=== PATIENT | male | born 1980 | race African-American/Black ===

== ENCOUNTER 2024-03-09 14:47 | Outpatient (POV) | payer MEDICARE, SELFPAY ==
[2024-03-09 15:26] VITALS: BP 121/82; PULSE 96; RESP 18; O2SAT 98; BMI 48.4
--- NOTE | 2024-03-09 16:09 | EXP.PAIN.OV ---
HPI Data of Consult Patient: known to practice within the last 3 years Consult date: 03/09/24 Requesting Physician: Daisy Wagner APRN Primary Care Provider: Julio Linn MD Consult Narrative Reason for consult: Low back pain, leg pain History of present illness: Mr. Ruiz is a 43 year old male who presents today as a referral from [facility]. Today he rates his pain a 4 or 5 out of 10. Patient states the pain is all in his low back and will radiate down into his extremities with the left side being more prominent. Patient states this has been going on for longer than a year unrelated to any specific trauma or injury. Patient was being seen in [place] from Dr. Melton until that office close and had gotten injections including lumbar medial branch blocks and RFA. Patient states that these injections did help and did provide improvement. Patient has also tried oral medications along with heat and ice and topicals. Patient did also purchase a TENS unit to help additionally with his low back pain. Patient has stated that the pain is worse with prolonged standing or walking. He does describe it as a throbbing, sharp sensation that does interfere with his ability perform activities of daily living such as cooking and cleaning. Patient does state that he is possibly interested in the minimally invasive lumbar procedure. He states that he did read up on this procedure. Patient is currently managed with gabapentin 600 mg 3 times a day from his PCP along with diazepam and has been tried on [place] 7.5 in the past. Patient is still prescribed compounded cream that he was originally started at our office there in [place]. He denies any side effects. His Rogelio has been reviewed and is appropriate. CC: Daisy Wagner APRN [facility] Disclaimer: The information contained in this section may have been updated after the patient was seen, as this information can be updated by other users. Social History Smoking Status: Unknown if ever smoked alcohol intake: never current occupational status: other Travel in the last 8 weeks: None Review of Systems Review of Systems Review of systems:: pertinent systems reviewed and negative unless documented below Review of systems (narrative): Review of Systems: General: No recent weight changes, no fever, no sleep disturbances Respiratory: No cough, no shortness of air, no recurring pulmonary infections Cardiovascular/peripheral vascular: No chest pain, no palpitations, no edema, no shortness of breath Gastrointestinal: No new onset incontinence, normal bowel movements reported Genitourinary: No new onset incontinence Musculoskeletal: Low back pain, bilateral leg pain left worse than the right Psychiatric: [Normal mood/affect] Neurological: [Denies weakness in extremities], [denies balance issues] Meds Home Medications and Allergies Home Medications ?Medication ?Instructions ?Recorded ?Confirmed ?Type gabapentin 600 mg tablet 600 mg PO TID 03/09/24 03/09/24 History hydrocodone 5 mg-acetaminophen 325 1 tab PO NEEDED PRN Pain 03/09/24 03/09/24 History mg tablet tizanidine 4 mg tablet 4 mg PO TID PRN Pain 03/09/24 03/09/24 History New Prescriptions to Start Prescriptions: Allergies Allergy/AdvReac Type Severity Reaction Status Date / Time No Known Allergies Allergy Verified 03/09/24 15:33 Objective Vital signs: Pulse Resp BP Pulse Ox O2 Del Method 96 H 18 121/82 98 Room Air 03/09/24 15:26 03/09/24 15:26 03/09/24 15:26 03/09/24 15:26 03/09/24 15:26 Narrative: Physical Exam: General: Alert and oriented x3, no acute distress, pleasant and cooperative Lungs: Respirations even and unlabored, symmetrical chest expansion Eyes: PERRL Musculoskeletal: Flexion and extension of lumbar [spine] somewhat guarded secondary to pain, [antalgic gait noted] positive leg raise Neurological: Speech clear, no gross sensory deficit Assessment and Plan *Assessment and plan (1) Degenerative disc disease, lumbar: Status: Acute Category: Medical Code(s): M51.369 - Other intervertebral disc degeneration, lumbar region without mention of lumbar back pain or lower extremity pain (2) Lumbar radiculopathy: Status: Acute Category: Medical Code(s): M54.16 - Radiculopathy, lumbar region (3) Lumbar facet arthropathy: Status: Acute Category: Medical Code(s): M47.816 - Spondylosis without myelopathy or radiculopathy, lumbar region (4) Chronic pain syndrome: Status: Acute Category: Medical Code(s): G89.4 - Chronic pain syndrome Plan Patient is experiencing worsening pain in his low back that does radiate down into his left lower extremity primarily in comparison to the right. He does have numbness and tingling. Patient does also have significant findings at the L5-S1 level where he is noted to have a grade 1 spondylolisthesis of L5 on S1, loss of disc space height, anterior spondylosis and endplate degeneration. Patient does have marked facet arthropathy, diffuse disc displacement that does contribute to moderate to severe bilateral lateral recess and foraminal stenosis leading to encroachment of the exiting L5 and descending S1 nerve roots. I did discuss with the patient that I do believe he would benefit from an epidural injection at this level with epidurogram to see if he is a beneficial candidate of the minimally invasive lumbar decompression. Patient agrees with this plan of care. Patient is not on any blood thinners. Patient has tried and failed conservative therapy including continued at home stretching exercise for longer than 12 weeks as well as multiple oral medication, heat and ice and topicals. Patient will be scheduled for an LESI L5-S1 with epidurogram. This will be done under fluoroscopic guidance. Patient has been instructed to contact the clinic with any concerns before the next appointment. Dr. Melton has reviewed this note and agrees with this plan of care. This note was dictated using voice recognition software and make contain errors or omissions. All injections are used with Lidocaine or Bupivacaine and Depo Medrol.
== END 2024-03-09 23:59 | disposition home or self-care (01) ==
LOC: SC.PAIN 14:52
PROVIDERS: PCP Family Medicine; Visit Provider Nurse Practitioner Family
DX: G89.4 Chronic pain syndrome (principal); M51.16 Intervertebral disc disorders with radiculopathy, lumbar region; M47.26 Other spondylosis with radiculopathy, lumbar region; Z73.89 Other problems related to life management difficulty
CPT/HCPCS: 99202; G0463

== ENCOUNTER 2024-04-07 13:44 | Day surgery (SDC) | payer MEDICARE, OTHER, SELFPAY ==
[2024-04-07 14:09] VITALS: BP 142/90; PULSE 95; RESP 16; TEMP 36.4; O2SAT 100; BMI 48.4
--- NOTE | 2024-04-07 14:43 | EXP.PAIN.PRO ---
Procedure Date: 04/07/24 Time: 14:45 Anesthesiologist:: Yovanny Lim CRNA Complications:: None Pre-procedure Diagnosis:: Degenerative disc lumbar spine multilevels. Lumbar radiculopathy. Lumbar spinal stenosis. Post-procedure Diagnosis:: Same. Indications for Procedure:: Patient is a pleasant 43-year-old male who comes our clinic today for a lumbar epidural steroid injection at the L5-S1 level. Patient describes low lumbar back pain as constant, dull, aching. Patient also reports bilateral leg radiculopathy symptoms left greater than right. He rates his pain 8/10. Procedure Details:: Procedure: Lumbar epidural steroid injection under fluoroscopy Informed consent was obtained and the risks and benefits of the procedure were explained to the patient. The patient was taken to the procedure room and noninvasive monitors placed, including noninvasive blood pressure cuff and pulse oximeter. The back was viewed using C-arm Fluoroscopy and prepped using Chloraprep as a cleansing solution and the L5-S1 interspace was palpated. Skin and subcutaneous tissues were anesthetized using lidocaine 1.5% and a 25-gauge needle. After this, an 18-gauge Touhy epidural needle was placed into the L5-S1 interspace and advanced using fluoroscopic guidance and loss of resistance to air until the epidural space was encountered. After confirmation of needle placement in the epidural space, with dye, a solution containing normal saline, 3 mL and Depo-Medrol 80 mg were incrementally injected into the lumbar epidural space. The patient tolerated the procedure well with no complications. The patient was observed in the Pain Clinic and then discharged home neurologically intact. Plan and Disposition:: Patient was discharged without incident.
[2024-04-07] MEDS: IOPAMIDOL-200 (41%);10ML VIAL IV (14:47)
[2024-04-07 14:48] VITALS: BP 134/84; PULSE 94; RESP 16; O2SAT 100
== END 2024-04-07 14:48 | disposition home or self-care (01) ==
PROVIDERS: PCP Family Medicine; Visit Provider Nurse Anesthetist, Certified Registered
DX: M51.16 Intervertebral disc disorders with radiculopathy, lumbar region (principal); M48.061 Spinal stenosis, lumbar region without neurogenic claudication
CPT/HCPCS: 62323; J1010; Q9966

== ENCOUNTER 2024-04-30 14:41 | Outpatient (POV) | payer MEDICARE, OTHER, SELFPAY ==
--- NOTE | 2024-04-30 15:06 | A.OFFVIS_ITS ---
[facility] Disclaimer: The information contained in this section may have been updated after the patient was seen, as this information can be updated by other users. Social History Smoking Status: Unknown if ever smoked alcohol intake: never current occupational status: other Travel in the last 8 weeks: None PM Subjective & Objective Subjective Subjective:: Patient is a pleasant 43-year-old male who presents today for follow-up of lumbar epidural steroid injection L5-S1 under fluoroscopy on 04/07/2024 with epidurogram. Today he rates his pain a 7 out of 10. Patient denies any new trauma or injury. He does state that on the day of the procedure he had 70% improvements and worked really great with improved function however it was very short-lived and is only rating about 20% currently. Patient states it is still that chronic aching, throbbing sensation with occasional sharp shooting pains and increased leg symptoms when he is up walking and moving around. He does state today he is having more pain around his low back and hips. He states that it is worse with prolonged sitting and does have to change positions frequently due to the increased pain. He does state it is interfering with his ability to perform activities of daily living such as cooking and cleaning. Patient has tried and failed conservative therapy and is currently managed with gabapentin and diazepam from his PCP. He has tried [place] in the past. Patient has been prescribed compounded cream from our office. His Rogelio has been reviewed and is appropriate. Review of Systems: General: No recent weight changes, no fever, no sleep disturbances Respiratory: No cough, no shortness of air, no recurring pulmonary infections Cardiovascular/peripheral vascular: No chest pain, no palpitations, no edema, no shortness of breath Gastrointestinal: No new onset incontinence, normal bowel movements reported Genitourinary: No new onset incontinence Musculoskeletal: Low back pain, bilateral hip pain Psychiatric: [Normal mood/affect] Neurological: [Denies weakness in extremities], [denies balance issues] Pain at rest (0-10 scale): 7 Objective Objective:: Physical Exam: General: Alert and oriented x3, no acute distress, pleasant and cooperative Lungs: Respirations even and unlabored, symmetrical chest expansion Eyes: PERRL Musculoskeletal: Flexion and extension of lumbar [spine] somewhat guarded secondary to pain, [antalgic gait noted] point tenderness along bilateral SIs with positive bilateral Bhakti's, Estela's, Gaenslen's, compression and distraction exam Neurological: Speech clear, no gross sensory deficit Has patient had previous pain injection?: Yes Percent improvement in pain since last injection: 70% initially Conservative treatment options previously tried: Home exercise plan Length of treatment: Longer than 12 weeks Meds Home Medications and Allergies Home Medications ?Medication ?Instructions ?Recorded ?Confirmed ?Type gabapentin 600 mg tablet 600 mg PO TID 03/09/24 04/07/24 History hydrocodone 5 mg-acetaminophen 325 1 tab PO NEEDED PRN Pain 03/09/24 04/07/24 History mg tablet tizanidine 4 mg tablet 4 mg PO TID PRN Pain 03/09/24 04/07/24 History New Prescriptions to Start Prescriptions: Allergies Allergy/AdvReac Type Severity Reaction Status Date / Time No Known Allergies Allergy Verified 03/09/24 15:33 Assessment and Plan *Assessment and plan (1) Degenerative disc disease, lumbar: Status: Acute Category: Medical Code(s): M51.369 - Other intervertebral disc degeneration, lumbar region without mention of lumbar back pain or lower extremity pain (2) Lumbar radiculopathy: Status: Acute Category: Medical Code(s): M54.16 - Radiculopathy, lumbar region (3) Lumbar facet arthropathy: Status: Acute Category: Medical Code(s): M47.816 - Spondylosis without myelopathy or radiculopathy, lumbar region (4) Lumbar spinal stenosis: Status: Acute Category: Medical Code(s): M48.061 - Spinal stenosis, lumbar region without neurogenic claudication (5) Lumbar stenosis with neurogenic claudication: Status: Acute Category: Medical Code(s): M48.062 - Spinal stenosis, lumbar region with neurogenic claudication (6) Bilateral sacroiliitis: Status: Acute Category: Medical Code(s): M46.1 - Sacroiliitis, not elsewhere classified Plan Patient has not had any advanced imaging of his low back. I did discuss with the patient that I do believe he is still a potential candidate for the mini dru invasive lumbar decompression however I would like some imaging. I will order x-ray and MRI without contrast of his lumbar spine. Patient during today's visit did have increased pain along the low back and bilateral hips. They did have limited range of motion of the lumbar spine along with point tenderness along bilateral SI joints and a positive bilateral Bhakti's, Estela's, Gaenslen's, compression and distraction exam. I did discuss with the patient that I do believe they would benefit from bilateral SI injections. Risk and benefits were discussed with the patient and they would like to proceed forward with this option. Patient has tried and failed conservative therapy including continued at home stretching exercise for longer than 12 weeks. Patient will be scheduled for bilateral SI injections under fluoroscopy. Patient has been instructed to contact the clinic with any concerns before the next appointment. Dr. Melton has reviewed this note and agrees with this plan of care. This note was dictated using voice recognition software and make contain errors or omissions. All injections are used with Lidocaine or Bupivacaine and Depo Medrol.
[2024-04-30 15:31] VITALS: BP 114/79; PULSE 92; RESP 14; O2SAT 96; BMI 50.0
== END 2024-04-30 23:59 | disposition home or self-care (01) ==
LOC: SC.PAIN 14:42
PROVIDERS: PCP Family Medicine; Visit Provider Nurse Practitioner Family
DX: M48.061 Spinal stenosis, lumbar region without neurogenic claudication (principal); M48.062 Spinal stenosis, lumbar region with neurogenic claudication; M46.1 Sacroiliitis, not elsewhere classified; M51.16 Intervertebral disc disorders with radiculopathy, lumbar region; M47.26 Other spondylosis with radiculopathy, lumbar region; Z73.89 Other problems related to life management difficulty
CPT/HCPCS: 99212; G0463

== ENCOUNTER 2024-05-19 11:10 | Day surgery (SDC) | payer MEDICARE, OTHER, SELFPAY ==
[2024-05-19 11:15] VITALS: BP 121/84; PULSE 106; RESP 16; TEMP 36.5; O2SAT 95; BMI 48.4
[2024-05-19 11:40] VITALS: BP 118/73; PULSE 96; RESP 16; TEMP 36.5; O2SAT 100
--- NOTE | 2024-05-19 11:42 | P.PCN_ITS ---
Procedure Date: 05/19/24 Time: 11:30 Anesthesiologist:: Yovanny Lim CRNA Complications:: None Pre-procedure Diagnosis:: Bilateral sacroiliitis Post-procedure Diagnosis:: Same Indications for Procedure:: Patient is a pleasant 44-year-old male who comes our clinic today for bilateral sacroiliac joint injection of cortisone and local anesthetic. Patient describes low lumbar back pain off the midline bilaterally. Bilateral posterior hip pain. Difficulty transitioning from sitting to standing. Difficult with ambulation. He rates his pain 7/10. Procedure Details:: Procedure: Bilateral sacroiliac joint injections under fluoroscopy Informed consent was obtained and the risks and benefits of the procedure were explained to the patient.~ The patient was taken to the procedure room and noninvasive monitors were placed including a noninvasive blood pressure cuff and pulse oximeter.~ The patient was placed prone on the procedure table. Both hips were cleansed using Betadine as a cleansing solution. C-arm fluoroscopy was used to view the right sacroiliac joint.~ The skin and subcutaneous tissues were anesthetized using lidocaine 1.5% and a 25-gauge needle.~ After this, a 22-gauge spinal needle was inserted under fluoroscopic guidance into the inferior aspect of the right sacroiliac joint.~ Omnipaque dye was injected and good spread was seen throughout the joint.~ After this, approximately 5 mL of bupivacaine, 0.25% and Depo-Medrol, 40 mg was incrementally injected into the right sacroiliac joint. We then moved to the left sacroiliac joint.~ The skin and subcutaneous tissues were anesthetized using lidocaine 1.5% and a 25-gauge needle.~ After this, a 22- gauge spinal needle was inserted under fluoroscopic guidance into the inferior aspect of the left sacroiliac joint.~ Omnipaque dye was injected and good spread was seen throughout the joint. After this, approximately 5 mL of bupivacaine, 0.25% and Depo-Medrol, 40 mg was incrementally injected into the left sacroiliac joint.~ The patient tolerated the procedure well with no complications. The patient was observed in the Pain Clinic and then was discharged home neurologically intact. Plan and Disposition:: Patient was discharged without incident.
[2024-05-19] MEDS: LIDOCAINE 1% 5ML PF VIAL 5 ML (11:48)
[2024-05-19] MEDS: BUPIVACAINE 0.25% 10ML INJ 25 MG IJ (11:48)
[2024-05-19 11:49] VITALS: BP 124/75; PULSE 83; RESP 18; O2SAT 99
[2024-05-19 11:51] VITALS: BP 124/75; PULSE 83; RESP 18; O2SAT 99
== END 2024-05-19 11:40 | disposition home or self-care (01) ==
LOC: SC.PAINP 11:11
PROVIDERS: PCP Family Medicine; Visit Provider Nurse Anesthetist, Certified Registered
DX: M46.1 Sacroiliitis, not elsewhere classified (principal)
CPT/HCPCS: 27096; G0260; J1010

== ENCOUNTER 2024-06-15 14:28 | Outpatient (POV) | payer OTHER, SELFPAY ==
--- NOTE | 2024-06-15 14:43 | EXP.PAIN.SOA ---
[facility] Disclaimer: The information contained in this section may have been updated after the patient was seen, as this information can be updated by other users. Medical History (Updated 05/19/24 @ 11:30 by Radha De La Rosa RN) Lumbar back pain Lumbar and sacral arthritis Surgical History (Updated 05/19/24 @ 11:30 by Radha De La Rosa RN) No significant past surgical history Family History (Updated 05/19/24 @ 11:30 by Radha De La Rosa RN) Other No significant family history Social History Smoking Status: Unknown if ever smoked alcohol intake: never current occupational status: other Travel in the last 8 weeks: None PM Subjective & Objective Subjective Subjective:: Patient is a pleasant 44-year-old male who presents today for follow-up of bilateral SI injection on 05/19/2024. Today he rates his pain a 6 out of 10. Patient states that he would only rate 60% the day of the injections and about 40% ongoing pain relief from these injections. He denies any new trauma or injury. Patient does state that from her last visit he did get his x-ray and MRI completed there at [facility]. Patient has now tried a couple of injections with our office as well as injections there at [facility] and they all of been very temporary. Patient states his pain is just chronic throughout his low back as well as his legs when he is up walking. Patient is currently managed with gabapentin and diazepam from his PCP. He is prescribed compounded cream from our office. His Rogelio has been reviewed and is appropriate. Review of Systems: General: No recent weight changes, no fever, no sleep disturbances Respiratory: No cough, no shortness of air, no recurring pulmonary infections Cardiovascular/peripheral vascular: No chest pain, no palpitations, no edema, no shortness of breath Gastrointestinal: No new onset incontinence, normal bowel movements reported Genitourinary: No new onset incontinence Musculoskeletal: Low back pain, bilateral leg pain Psychiatric: [Normal mood/affect] Neurological: [Denies weakness in extremities], [denies balance issues] Pain at rest (0-10 scale): 6 Objective Objective:: Physical Exam: General: Alert and oriented x3, no acute distress, pleasant and cooperative Lungs: Respirations even and unlabored, symmetrical chest expansion Eyes: PERRL Musculoskeletal: Flexion and extension of lumbar [spine] somewhat guarded secondary to pain, [antalgic gait noted] Neurological: Speech clear, no gross sensory deficit Has patient had previous pain injection?: Yes Percent improvement in pain since last injection: Ongoing 40% Conservative treatment options previously tried: Home exercise plan Length of treatment: Longer than 12 weeks Meds Home Medications and Allergies Home Medications ?Medication ?Instructions ?Recorded ?Confirmed ?Type gabapentin 600 mg tablet 600 mg PO TID 03/09/24 05/19/24 History hydrocodone 5 mg-acetaminophen 325 1 tab PO NEEDED PRN Pain 03/09/24 05/19/24 History mg tablet tizanidine 4 mg tablet 4 mg PO TID PRN Pain 03/09/24 05/19/24 History New Prescriptions to Start Prescriptions: Allergies Allergy/AdvReac Type Severity Reaction Status Date / Time No Known Allergies Allergy Verified 03/09/24 15:33 Assessment and Plan *Assessment and plan (1) Degenerative disc disease, lumbar: Status: Acute Category: Medical Code(s): M51.369 - Other intervertebral disc degeneration, lumbar region without mention of lumbar back pain or lower extremity pain (2) Lumbar radiculopathy: Status: Acute Category: Medical Code(s): M54.16 - Radiculopathy, lumbar region (3) Chronic pain syndrome: Status: Acute Category: Medical Code(s): G89.4 - Chronic pain syndrome Plan I did discuss with the patient due to the patient's chronic pain throughout his low back and legs that he may be a beneficial candidate of a intrathecal pain pump trial or spinal cord stimulator trial. Risk and benefits and educational handouts were given to the patient and he does state that he would like to proceed forward with the pump trial. 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 Patient will be ordered a psychological evaluation and if he is deemed an appropriate candidate we will proceed forward with the trial at a later date. Patient will return to clinic in 1 month. Patient did also make mention today that he is wanting our office to take over his gabapentin. I have counseled him that to make sure that his current provider send us a letter or a fax related to wanting our office to take over this. Patient acknowledges understanding and agrees with plan of care. Patient has been instructed to contact the clinic with any concerns before the next appointment. Dr. Melton has reviewed this note and agrees with this plan of care. This note was dictated using voice recognition software and make contain errors or omissions. All injections are used with Lidocaine, Bupivacaine and Depo Medrol. Occasionally urine drug screen is needed to verify patient's compliance with our office pain contract. This is ordered based off specific treatments related to chronic pain with the potential to abuse certain medications.
[2024-06-15 15:35] VITALS: BP 130/98; PULSE 94; RESP 18; O2SAT 95; BMI 48.4
== END 2024-06-15 23:59 | disposition home or self-care (01) ==
LOC: SC.PAIN 14:31
PROVIDERS: PCP Family Medicine; Visit Provider Nurse Practitioner Family
DX: M51.16 Intervertebral disc disorders with radiculopathy, lumbar region (principal); G89.4 Chronic pain syndrome
CPT/HCPCS: 99212; G0463

== ENCOUNTER 2024-09-16 10:10 | Outpatient (POV) | payer MEDICARE, OTHER, SELFPAY ==
--- OUTSIDE RECORDS SUMMARY | 2024-09-16 10:14 | XMS_ITS | Encounter Summary ---
Author Organization Healthcare Address [address] [place] [address] Care Team Providers Care Vegetable Harvest Worker Name Role Phone Dixie Drew MD Primary Care Provider [phone] Encounter Details Date Type Department Care Team ([facility] Contact Info) Description 02/10/2021 [facility] [address] [place] [address] Dixie Drew MD [address] [place] [address] [place], [place] [id number] Positive WILLIAMS (antinuclear antibody) (Primary Dx) Social History Tobacco Use Types Packs/Day Years Used Date Smoking Tobacco: Never Assessed Sex and Gender Information Value Date Recorded Sex Assigned at Male 12/11/2023 2:26 PM EDT Legal Sex Male 3:26 PM EDT Gender Identity Male 12/11/2023 2:26 PM EDT Sexual Orientation Straight 12/11/2023 2: 26 PM EDT documented as of this encounter Plan of Treatment Upcoming Encounters Date Type Department Care Team (Late Contact Info) Description 12/15/2024 2:20 PM EDT [facility] Visit [facility] [address] [place] [address] Nany Beard, LUCRECIA [address] [place] [address] documented as of this encounter Visit Diagnoses Diagnosis Positive WILLIAMS (antinuclear antibody)- Primary Other and unspecified nonspecific immunological findings documented in this encounter Care Teams Vegetable Harvest Worker Relationship Specialty Start Date End Date Dixie Drew MD [address] [place] [address] PCP - General 02/21/21 documented as of this encounter
--- OUTSIDE RECORDS SUMMARY | 2024-09-16 10:14 | XMS_ITS | Continuity of Care Document ---
Author Organization [facility] Address [address] [place] [address] Assessment No assessment recorded. Plan of Treatment Reminders Order Date Submit Date Provider Last Modified By Organization Details Last Modified Time Details Appointments None record ed. Lab None record ed. Referral None record ed. Procedures None record ed. Surgeries None record ed. Imaging None record ed. Medication Orders None record ed. Patient TargetsNo targets recorded. Patient Instructions Encounter Date Encounter Id Patient Instructions Last Modified By Organization Details Last Modified Time 08/14/2024 [id number] body mass index: care instructions [email or web address] Not available 08/14/2024 11:11:18 learning about healthy weight tgrosser Not available 08/14/2024 11:11:18 deciding about using medicines to quit smoking tgrosser Not available 08/14/2024 11:30:13 Quitting Tobacco : Care Instructions [email or web address] Not available 08/14/2024 11:30:13 body mass index: care instructions tgrosser Not available 08/14/2024 11:30:13 learning about healthy weight tgrosser Not available 08/14/2024 11:30:13 Reason for Referral None Reported. Problems Name Problem SNOMED Code Status Onset Date Resolution Date Notes Provider Name and Address Organization Details Recorded Time Hypertensive disorder 46687226 Active Jessie Juan null, [place] - [facility] 9 17:34:26 Cerebral palsy 463648783 Active Jessie Juan null, [place] - [facility] 17:34:33 Spondylolysis 072364598 Active Jessie Juan null, [facility] 17:34:42 Depressive disorder 20954115 Active Jessie Juan null, [place] - [facility] 9 17:34:49 Anxiety 64410586 Active [place] - [facility] 9 17:35:06 Acid reflux 589541639 Active [place] - [facility] 9 17:35:13 Vitamin K below reference range 127512948 Active 2018 Joe Art null, [place] - [facility] 9 17:37:12 Vitamin D deficiency 41381394 Active 2018 Joe Art null, [place] - [facility] 9 17:37:25 Essential hypertension 20083003 Active 2019 Ali Rajendra null[place] - [facility] 0 13:19:55 Obstructive sleep apnea syndrome 85430772 Active 2020 Ali Rajendra null, [place] - [facility] 1 20:55:19 Swelling of bilateral lower limbs 038933537 Active 2020 Ali Rajendra null[place] - [facility] 1 20:55:23 Body mass index 30+ - obesity 876403732 Active 2020 Ali Rajendra null[place] - [facility] 1 20:55:26 Chronic kidney disease 589124268 Active 2020 Ali Rajendra [place] - [facility] 1 02:59:43 Lymphocytosis 23237056 Active 2020 Ali Rajendra [place] - [facility] 1 12:32:57 Anti-nuclear factor detected 927109165 Active 2020 Ali Rajendra [place] - [facility] 1 12:42:25 Type 2 diabetes mellitus 21940457 Active 2021 Ali Rajendra null[place] - [facility] 2 12:41:05 Low back pain 128302653 Active 2021 Ali Rajendra null, [place] - [facility] 2 14:44:47 Degeneration of lumbar intervertebral disc 20812930 Active 2021 Julio Linn MD [address], [place], [address] [place] - [facility] 2 13:35:56 Tobacco dependence syndrome 37837706 Active 2021 Claudia Bui null[place] - [facility] 2 10:26:48 Lumbar radiculopathy 768570545 Active Kellee Dill null, [place] - [facility] 4 13:12:22 Gout 69399876 Active Kellee Dill null, [place] - [facility] 4 13:12:22 Morbid obesity 415739518 Active 2023 Roosevelt Curt, [employer] [address], [place], [address] [place] - [facility] 4 15:28:13 Problem Notes None recorded. Procedures Surgical History Date Name Laterality Status Provider Name and Address Organization Details Recorded Time 10/31/19 24 Medication Reconcilliation completed Oneyda Philippe [place] - [facility] 10/31/2023 09:31:08 08/02/19 24 Medication Reconcilliation completed Claudia Bui [place] - [facility] 08/02/2023 13:46:51 01/05/20 23 Medication Reconcilliation completed Claudia Bui [place] - [facility] 01/04/2023 09:05:56 02/29/20 Medication Reconcilliation completed [place]ia Bui [place] [facility] 02/28/2022 10:21:54 lengthening of Achilles tendon completed Jessie Martinez [place] [facility] 01/08/2019 17:37:07 Eye Surgery completed Jessie [place] [facility] 01/08/2019 17:37:18 Imaging Results None recorded. Procedure Notes None recorded. Medical Equipment None Reported. Allergies Allergen ID Allergen Name Allergen Category Reaction Reaction Severity Criticality Documentation Date Start Date Code Code System Note Provider Name and Address Organization Details Recorded Time [id number] No known allergy (situatio n) Not available Not available Not available Not available 10/21/2023 96300 6003 SNOMED Kellee Dill null, [place] - [facility] 4 13:09:43 No known drug allergies Medications Name Sig Start Date Stop Date Status Note LastModified by Organization Details LastModified Time amantadine HCl 100 mg tablet 08/14 completed Not Available Not Available Not Available cyclobenzap rine 10 mg tablet TAKE ONE TABLET BY MOUTH ONCE DAILY 10/30 completed Not Available Not Available Not Available methocarbam ol 500 mg tablet TAKE 1 TABLET BY MOUTH EVERY 4 HOURS NEEDED FOR PAIN 01/07 completed Not Available Not Available Not Available metformin 500 mg tablet TAKE 1 TABLET BY MOUTH TWICE DAILY active Not Available Not Available No t Available prednisone 10 mg tablet TAKE 4 TABLETS BY MOUTH ONCE DAILY FOR 2 DAYS THEN 3 TABLETS DAILY FOR 2 DAYS THEN 2 TABLETS DAILY FOR 2 DAYS THEN TAKE 1 TABLET FOR 2 DAYS 10/30 completed Not Available Not Available Not Available gabapentin 600 mg tablet TAKE 1 TABLET BY MOUTH THREE TIMES DAILY FOR PAIN active Not Available Not Available No t Available metoprolol tartrate 100 mg tablet Take 1 tablet every day by oral route. 05/09 completed Not Available Not Available Not Available tizanidine 4 mg tablet TAKE 1 TABLET BY MOUTH THREE TIMES DAILY NEEDED FOR MUSCLE SPASMS active Not Available Not Available No t Available hydrocodone 5 mg-acetamin ophen 325 mg tablet TAKE 1 TABLET BY MOUTH EVERY 4 HOURS IF NEEDED 09/28 completed Not Available Not Available Not Available glipizide 10 mg tablet TAKE 1 TABLET BY MOUTH TWICE DAILY active Not Available Not Available No t Available prednisone 20 mg tablet TAKE 1 TABLET BY MOUTH EVERY DAY FOR 5 DAYS 01/07 completed Not Available Not Available Not Available metoprolol succinate ER 100 mg tablet,exte nded release 24 hr TAKE 1 TABLET BY MOUTH EVERY MORNING active Not Available Not Available No t Available gabapentin 400 mg capsule Take 1 capsule 3 times a day by oral route. 09/07 completed Not Available Not Available Not Available Accu-Chek Softclix Lancets USE DIRECTED TO CHECK BLOOD SUGAR FOUR TIMES DAILY NEEDED active Not Available Not Available No t Available potassium chloride ER 10 mEq tablet,exte nded release TAKE 1 TABLET BY MOUTH EVERY DAY active Not Available Not Available No t Available metronidazo le 500 mg tablet Take 1 tablet twice a day by oral route. 06/04 completed Not Available Not Available Not Available allopurinol 100 mg tablet TAKE 1 TABLET BY MOUTH EVERY DAY FOR GOUT 11/24 completed Not Available Not Available Not Available omeprazole 40 mg capsule,del ayed release Take 1 capsule every day by oral route. 09/07 completed Not Available Not Available Not Available sildenafil 100 mg tablet TAKE 1/2 TABLET BY MOUTH EVERY DAY active Not Available Not Available No t Available ketorolac 30 mg/mL (1 mL) injection solution give 1 ml injection IM once 11/24 completed Not Available Not Available Not Available ketorolac 10 mg tablet TAKE 1 TABLET BY MOUTH EVERY 8 HOURS NEEDED FOR PAIN 01/04 completed Not Available Not Available Not Available Mobic 15 mg tablet Take 1 tablet every day by oral route. 01/27 completed Not Available Not Available Not Available losartan 100 mg-hydrochl orothiazide 25 mg tablet Take 1 tablet every day by oral route for 30 days. 06/04 completed Not Available Not Available Not Available potassium 99 mg tablet 01/07 completed Not Available Not Available Not Available Vitamin D3 10 mcg (400 unit) tablet Take 2 tablets every day by oral route. 2019 active Not Available Not Available Not Avai lable potassium chloride ER 20 mEq tablet,exte nded release(par t/cryst) TAKE 1 TABLET BY MOUTH EVERY DAY 01/23 completed Not Available Not Available Not Available furosemide 80 mg tablet TAKE 1 TABLET BY MOUTH EVERY DAY active Not Available Not Available No t Available baclofen 10 mg tablet TAKE 1 TABLET BY MOUTH THREE TIMES DAILY NEEDED 01/07 completed Not Available Not Available Not Available amlodipine 10 mg tablet TAKE 1 TABLET BY MOUTH EVERY MORNING active Not Available Not Available No t Available hydrocodone 7.5 mg-acetamin ophen 325 mg tablet TAKE 1 TABLET BY MOUTH THREE TIMES DAILY NEEDED FOR PAIN active Not Available Not Available No t Available indomethaci n 50 mg capsule TAKE 1 CAPSULE BY MOUTH THREE TIMES DAILY FOR 3 DAYS FOR GOUT 01/07 completed Not Available Not Available Not Available gabapentin 300 mg capsule TAKE TWO CAPSULE BY MOUTH THREE TIMES DAILY FOR NEUROPTHY 11/24 completed Not Available Not Available Not Available omeprazole 20 mg capsule,del ayed release TAKE 1 CAPSULE BY MOUTH EVERY MORNING active Not Available Not Available No t Available diclofenac sodium 75 mg tablet,david yed release TAKE 1 TABLET BY MOUTH TWICE DAILY 10/26 completed Not Available Not Available Not Available allopurinol 300 mg tablet TAKE 1 TABLET BY MOUTH TWICE DAILY FOR GOUT 08/14 completed Not Available Not Available Not Available hydrochloro thiazide 25 mg tablet TAKE 1 TABLET BY MOUTH EVERY MORNING 08/14 completed Not Available Not Available Not Available furosemide 20 mg tablet TAKE 1 TABLET BY MOUTH EVERY DAY 11/23 /2022 completed Not Available Not Available Not Available ergocalcife rol (vitamin D2) 1,250 mcg (50,000 unit) capsule 06/04 completed Not Available Not Available Not Available diazepam 10 mg tablet TAKE ONE TABLET BY MOUTH ONCE PRE PROCEDURE . TAKE 30 MINUTES PRIOR TO ARRIVIAL TO OFFICE 01/07 completed Not Available Not Available Not Available methylpredn isolone 4 mg tablets in a dose pack FOLLOW PACKAGE DIRECTION S 10/30 completed Not Available Not Available Not Available albuterol sulfate HFA 90 mcg/actuati on aerosol inhaler INHALE 1 TO 2 PUFFS BY MOUTH EVERY 4 HOURS NEEDED active Not Available Not Available No t Available colchicine 0.6 mg tablet TAKE TWO TABLETS BY MOUTH NOW THEN ONE TABLET 1 HOUR LATER active Not Available Not Available No t Available celecoxib 100 mg capsule TAKE 1 CAPSULE BY MOUTH TWICE DAILY 01/07 completed Not Available Not Available Not Available losartan 100 mg tablet TAKE 1 TABLET BY MOUTH DAILY active Not Available Not Available No t Available Cymbalta 60 mg capsule,del ayed release Take 1 capsule every day by oral route. 01/23 completed Not Available Not Available Not Available Cymbalta 30 mg capsule,del ayed release Take 1 capsule every day by oral route. 01/23 completed Not Available Not Available Not Available cholecalcif andrade (vitamin D3) 1,250 mcg (50,000 unit) capsule Take 1 capsule twice a week by oral route as directed for 28 days. 09/09 completed Not Available Not Available Not Available febuxostat 40 mg tablet Take 40 mg by oral route. active Not Available Not Available No t Available potassium chloride ER 20 mEq tablet,exte nded release Take 1 tablet every day by oral route. 01/23 completed Not Available Not Available Not Available Accu-Chek Guide test strips USE 1 STRIP FOUR TIMES DAILY TO TEST BLOOD SUGAR NEEDED 2024 active Not Available Not Available Not Avai lable Ilaris (PF) 150 mg/mL subcutaneou s solution Inject 150 mg every 3 months by sub-q route for 84 days. active Not Available Not Available No t Available Ozempic 1 mg/dose (2 mg/1.5 mL) subcutaneou s pen injector Inject 1 mg every week by subcutane ous route for 30 days. 08/14 completed Not Available Not Available Not Available Ozempic 0.25 mg or 0.5 mg (2 mg/1.5 mL) subcutaneou s pen injector Inject 0.5 mg every week by subcutane ous route for 30 days. 08/14 completed Not Available Not Available Not Available Accu-Chek Guide Me Glucose Meter USE DIRECTED active Not Available Not Available No t Available Ozempic 1 mg/dose (4 mg/3 mL) subcutaneou s pen injector INJECT 1 MG UNDER SKIN ONE DAY A WEEK 08/14 completed Not Available Not Available Not Available Ozempic 2 mg/dose (8 mg/3 mL) subcutaneou s pen injector active Not Available Not Available Not Available Ozempic 0.25 mg or 0.5 mg (2 mg/3 mL) subcutaneou s pen injector INJECT 0.5MG SUBCUTANE OUS ONE DAY A WEEK 08/14 completed Not Available Not Available Not Available Vitals Date Recorded Body height Body mass index (BMI) Body weight Body temperature Heart rate Oxygen saturation Oxygen saturation in Arterial blood by Pulse oximetry Respiratory rate Systolic blood pressure Diastolic blood pressure Provider Name and Address Organization Details Last Updated DateTime 167.64 cm 47.1 kg/m2 941878. 97 g 98 [degF] 80 /min 97 % 97 % 18 /min 110 mm[Hg] 82 mm[Hg] Claudia Bui [place] - [facility] 5 10:48:07 Social History Question Answer Notes LastModified by Organizat ion Details LastModified Time Tobacco Smoking Status Current Every Day Smoker Claudia Bui null, [place] - [facility] 02/28/2022 10:26:40 Do You Have An Advance Directive? No Information not available 01/08/2019 Are You Blind Or Do You Have Difficulty Seeing? No Information not available 02/25/2019 What Is Your Level Of Caffeine Consumption? Moderate Information not available 01/08/2019 In The 14 Days Before Symptom Onset, Have You Had Close Contact With A Laboratory-confir [facility] COVID-19 While That Case Was Ill? No Information not available 01/04/2023 In The 14 Days Before Symptom Onset, Have You Had Close Contact With A Person Who Is Under Investigation For COVID-19 While That Person Was Ill? No Information not available 01/04/2023 Have You Been To An Area Known To Be High Risk For COVID-19? No Information not available 01/04/2023 Are You Deaf Or Do You Have Serious Difficulty Hearing? No Information not available 02/25/2019 What Type Of Diet Are You Following? REGULAR Information not available 01/08/2019 Which Illicit Or Recreational Drugs Have You Used? NONE Information not available 01/08/2019 Have You Processed Blood Or Body Fluids From An Ebola Virus Disease Patient Without Appropriate PPE? No Information not available 01/04/2023 Do You Reside In Or Have You Traveled To An Area Where Ebola Virus Transmission Is Active? No Information not available 01/04/2023 What Is The Highest Grade Or Level Of School You Have Completed Or The Highest Degree You Have Received? [id number] Information not available 02/28/2022 Have There Been Any Changes To Your Family Or Social Situation? No Information no t available 02/28/2022 What Is The Fluoride Status Of Your Home? Fluoridated Information not available 02/28/2022 Hard Of Hearing Or Deaf In One Or Both Ears? No Information not available 01/08/2019 Have You Recently Or Are You Planning To Travel To An Area With Zika Virus? No Information not available 01/04/2023 Legally Blind In One Or Both Eyes? No Information no t available 01/08/2019 Live Alone Or With Others? With Others Information not available 01/08/2019 What Was The Date Of Your Most Recent Tobacco Screening? 08/14/2024 Information not available 08/14/2024 How Many Children Do You Have? 1 Information not available 01/08/2019 What Is Your Current Pack Years? 10packyears Information not available 02/28/2022 Do You Use Protection During Sex? No Information not available 07/06/2022 Do You Use Protection Against STDs? No Information not available 07/06/2022 What Is Your Relationship Status? Information not available 07/06/2022 Seat Belts Used Routinely Yes Information not available 02/25/2019 Are You Sexually Active? Yes Information not available 01/08/2019 Do You Have Smoke And Carbon Monoxide Detectors In Your Home? Yes Information not available 02/28/2022 At What Age Did You Start Smoking Tobacco? 40 Information not available 02/28/2022 Are You Passively Exposed To Smoke? Yes Information no t available 02/28/2022 How Much Tobacco Do You Smoke? 0.5 PPD Information not available 02/28/2022 Has Tobacco Cessation Counseling Been Provided? Yes Information not available 02/28/2022 On What Date Was Tobacco Cessation Counseling Provided? 08/14/2024 Information not available 08/14/2024 How Many Years Have You Smoked Tobacco? 1 Information not available 02/28/2022 Do You Have Difficulty Walking Or Climbing Stairs? No Information not available 02/25/2019 What Contraceptive Method Was Reported At Start Of This Visit? None Information not available 07/06/2022 What Contraceptive Method Was Reported At End Of This Visit? None Information not available 07/06/2022 Do You Want To Talk About Contraception Or Prevention During Your Visit Today? No - This Question Does Not Apply To Me/I Prefer Not To Answer Information not available 07/06/2022 Sex: Male Functional Status Question Answer Note LastModified by Organizat ion Details LastModified Time Do you use any illicit or recreational drugs? No Information not available 02/28/2022 Do you or have you ever used any other forms of tobacco or nicotine? No Information not available 02/28/2022 What is your level of alcohol consumption? None Information not available 01/08/2019 Are you currently employed? No Information not available 01/08/2019 Do you have transportation difficulties? No Information not available 02/28/2022 Are you able to walk? YESWOREST Information not available 02/25/2019 Do you have difficulty doing errands alone? No Information not available 02/25/2019 Are you able to care for yourself? 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 No Information not available 02/25/2019 Do you or have you ever used e-cigarettes or vape? Never used electronic cigarettes Information not available 02/25/2019 What is your exercise level? None Information not available 01/08/2019 Mental Status Question Answer Note LastModified by Organizat ion Details LastModified Time Do you feel stressed (tense, restless, nervous, or anxious, or unable to sleep at night)? [id number] Information not available 02/28/2022 Do you have difficulty concentrating, remembering or making decisions? No Information no t available 02/25/2019 Family History Relationship Description Onset Age of this Age Resolved Age Notes LastModified by Organization Details LastModified Time Unspecified Relation Hypertensive disorder Not available 2018 17:35:30 Unspecified Relation Diabetes mellitus Not available 2018 17:35:36 Unspecified Relation Family history of malignant neoplasm Not available 2018 17:35:45 Medical History Condition Response Pancreatitis N Coronary Artery Disease N Other N Gout N Atrial Fibrillation N congenital heart disease N Blood Diseases N Kidney Stones N Hyperthyroidism N Rheumatoid arthritis N Blood Transfusion N Erectile Dysfunction N amputation N Colonoscopy N Skin Lesions N COPD N Depression Y Pneumonia N Incontinence N Murmur N Edema N Alzheimer's Disease N Migraine Headaches N Tobacco Abuse N Anxiety Disorder Y Muscle, Joint, or Bone Problems N Hemorrhoids N Obesity N Vision or Eye Problems N Restless Leg Syndrome N Arthritis N Infertility N Polyps N Carpal Tunnel N Mental Disorder N Acid Reflux (GERD) Y Cancer N Stroke N Varicosities N Tendonitis N Crohn's Disease N Hypercholesterolemia N Skin Cancer N Fibromyalgia N Headaches N Anal Fissure N Irritable Bowel Syndrome N Kidney Disease N Heart Problems N Ear or Hearing Problems N Hospitalizations N Gallstones N Kidney or Bladder Problems N Goiter N Acne N Skin Problems N Eating Disorder N Villarreal's Esophagus N Hypertriglyceridemia N MRSA exposure N Constipation N Embolism N Vitamin B12 Deficiency N Deviated Septum N Tuberculosis N AIDS/HIV N Myocardial Infarction N Asthma N Mitral Valve Disorders N Vertigo N Hepatitis N Thyroid Cancer N Neuropathy N Pulmonary Embolism N History of DVT N Herniated Disc N Chronic Ear Infections N Chicken Pox N Autism Spectrum Disorder (ASD) N Von Willebrands Disease N Thrombophilias N Breast Cancer N Hernia N Plantar Fasciitis N Hospital Admission Other Than N Lung Disease N Hypothyroidism N Defects or Inherited Disease N Developmental or Behavioral Disorders N Breast Problem N Difficulty Swallowing N Ovarian Cyst N Anesthesia Complications N Testosterone Deficiency N Meniere's disease N Head Injury/Concussion N Interstitial Cystitis N Congenital Anomalies N Hypoglycemia N Blood clot N Vitamin D Deficiency N Cellulitis N Endometriosis N Fracture N Bladder or Kidney Problems N Liver Disease N Panic Disorder N Schizophrenia N Concussion N Spina Bifida N Allergies/Hayfever N Osteoarthritis N Parkinson's Disease N Disc Protrusion N STI N Esophagitis N Angina N Thyroid Problems N GI Problems N ADD/ADHD N Anemia N Multiple Sclerosis N Abnormal PAP N Lumbago N Mental Illness N Psychiatric Illness N Diabetes N Ovarian Cancer N Bedwetting N Degenerative Disc Disease N Seizures/Epilepsy N Congestive Heart Failure (CHF) N Hyperlipidemia N Syncope N Insomnia N Eczema N Abuse/Domestic Violence N Attention Deficient Disorder N Diverticulitis N Dementia N Ulcerative colitis N Cerebrovascular Disease N Depression N Guillain-Pool N Sleep Apnea N Aneurysm N Bronchitis N Heart Disease N Suicidal Ideation N Pre-Eclampsia N Hypertension Y Osteoporosis N Immunizations Vaccine Type Date Status Note Provider Nam e and Address Organization Details Recorded Time Td (adult), 2 Lf tetanus toxoid, preservative free, adsorbed 0 completed Jessie Martinez null, [place] - [facility] 09/08/2019 18:16:17 Influenza, split virus, quadrivalent, PF 1 completed [place]esa [place]za [place] - [facility] 01/10/2021 13:01:17 pneumococcal polysaccharide PPV23 2 completed Vandana Perez null, [facility] 05/09/2021 12:57:03 Influenza, split virus, quadrivalent, preservative 2 completed [facility] 02/28/2022 13:16:36 Influenza, split virus, quadrivalent, preservative 3 completed [facility] 01/16/2023 08:23:55 Influenza, split virus, trivalent, preservative 4 completed Claudia crook, [place] - [facility] 01/08/2024 17:27:41 Influenza, split virus, quadrivalent, preservative 9 completed Not Available [facility] 04/25/2019 03:56:14 Past Encounters Encounter ID Performer Location Encounter Start Date Encounter Closed Date Diagnosis/Indication Diagnosis SNOMED-CT Code Diagnosis ICD10 Code Diagnosis Note [id number] Julio Linn MD [address] [place] [address] 08/14/2024 10:41:29 08/14/2024 11:11:07 Obstructive sleep apnea syndrome 38579171 G47.33 Body mass index 30+ - obesity 655814211 Z68.43 Tobacco de pendence syndrome 81310568 F17.200 Body mass index 40+ - severely obese 898402346 Z68.42 Health Concerns Section Related Observation LastModified by Organization Detai ls LastModified Time None Recorded Concern Status LastModified by Organization Details LastModified Time None Recorded Payers Encounter Date Sequence Insurance Name Policy Number Policy Blackburn Covered Member ID Blackburn Member ID Guarantor Name 08/14/2024 2 [employer] [employer] - [id number] Rubio Ruiz [id number] Rubio Ruiz 08/14/2024 1 [place] (MEDICARE REPLACEMENT HMO) [id number] Rubio Ruiz [id number] Rubio Ruiz Notes Date Note Type Note Provider Name and Address Organization Details Recorded Time 08/14/2024 text/html Here for new CPAP machine. Had positive home sleep study summer 2023. [facility] did not accept his ins so need a new order. Uses CPAP nightly and benefits greatly. Julio Linn MD [address], [place], [address], [place] - [facility] 08/14/2024 11:12:35
--- OUTSIDE RECORDS SUMMARY | 2024-09-16 10:14 | XMS_ITS | Data Portability ---
[facility] [address] [place] [address] Care Team Providers Care Missile And Missile Checkout Technician Name Role Phone AISHA MOON Primary Care Provider Unavailabl e Assessment No assessment recorded. Plan of Treatment Reminders Order Date Submit Date Provider Last Modified By Organization Details Last Modified Time Details Appointments None recorded. Lab microalbum in/creatin ine, mass ratio, urine 2017 018 TIFFANY [facility], [address], [place], [place], [address], 8 18:36:45 drug screen, urine 2017 018 TIFFANY [facility], [address], [place], [place], [address], 8 18:36:44 BMP, serum or plasma 2016 017 TIFFANY [facility], [address], [place], [place], [address], 7 12:36:55 CBC w/ auto diff 2016 017 TIFFANY [facility], [address], [place], [place], [address], 7 10:37:13 TSH, ultra-sens itive, serum 2016 017 TIFFANY [facility], [address], [place], [place], [address], 7 10:37:16 CMP, serum or plasma 2016 017 TIFFANY [facility], [address], [place], [place], [address], 7 10:37:14 lipid panel, serum 2016 017 TIFFANY [facility], [address], [place], [place], [address], 7 10:37:15 Referral neurosurge ry referral 2017 018 [email or web address] Not available 8 14:17:56 sleep study referral 2016 017 [facility] (Central Scheduling), [address] [place] [address], [address], 8 20:37:05 Procedures None recorded. Surgeries None recorded. Imaging nerve conduction study 2016 017 [email or web address] [facility] (Central Scheduling), [address] [place] [address], [address], 7 15:39:39 XR, cervical spine 2016 017 Not available 7 15:40:06 Medication Orders losartan 50 mg-hydroch lorothiazi de 12.5 mg tablet 2017 018 INTERFACE [facility], [address] [place], [address], 8 15:55:40 metoprolol succinate ER 100 mg tablet,ext ended release 24 hr 2017 018 INTERFACE [facility], [address] [place], [address], 8 15:55:40 amlodipine 10 mg tablet 2017 018 INTERFACE [facility], [address] [place], [address], 8 15:55:42 gabapentin 400 mg capsule 2017 018 INTERFACE [facility], [address] [place], [address], 8 12:32:12 Zanaflex 4 mg tablet 2017 018 INTERFACE [facility], [address] [place], [address], 8 12:32:13 Cymbalta 60 mg capsule,de layed release 2017 018 INTERFACE [facility], [address], [place], [address], 8 15:55:42 losartan 50 mg-hydroch lorothiazi de 12.5 mg tablet 2016 017 INTERFACE [facility], [address] [place], [address], 7 14:00:48 metoprolol succinate ER 100 mg tablet,ext ended release 24 hr 2016 017 INTERFACE [facility], [address] [place], [address], 7 13:59:52 amlodipine 10 mg tablet 2016 017 INTERFACE [facility], [address] [place], [address], 7 13:59:53 Cymbalta 60 mg capsule,de layed release 2016 017 INTERFACE [facility], [address] [place], [address], 7 13:59:52 omeprazole 40 mg capsule,de layed release 2016 017 INTERFACE [facility], [address], [place], [address], 7 14:26:37 amlodipine 10 mg tablet 2016 017 INTERFACE [facility], [address], [place], [address], 7 14:26:38 losartan 50 mg-hydroch lorothiazi de 12.5 mg tablet 2016 017 INTERFACE [facility], [address], [place], [address], 7 14:26:40 metoprolol succinate ER 100 mg tablet,ext ended release 24 hr 2016 017 INTERFACE [facility], [address], [place], [address], 7 14:26:39 Cymbalta 60 mg capsule,de layed release 2016 017 INTERFACE [facility], [address], [place], [address], 7 14:26:39 Patient TargetsNo targets recorded. Patient InstructionsNo instructions recorded. Reason for Referral Referring Physician: [facility], Encounter Date: 01/30/2017 Neurosurgery Referral for Sp ondylolisthesis Referring Physician: A[facility], Encounter Date: 05/02/2017 Results Created Date Observation Date Name Description Value Unit Range Abnormal Flag Note LastModifiedBy Organization Detail LastModifiedTime 01/03/20 17 01/03/2017 CBC w/ auto diff WBC 9.5 x10e3 /uL 3.4-10 .8 Not Available [facility] ([facility]) [address], [place], [address], 01/03/2017 10:37:13 01/03/20 17 01/03/2017 CBC w/ auto diff RBC 5.31 x10e6 /uL 4.14-5 .80 Not Available [facility] ([facility]) [address] [facility] [address], [place], [address], 01/03/2017 10:37:13 01/03/20 17 01/03/2017 CBC w/ auto diff hemoglobin 16.2 g/dL 12.6-1 7.7 Not Available [facility] ([facility]) [address] [facility] [address], [place], [address], 01/03/2017 10:37:13 01/03/20 17 01/03/2017 CBC w/ auto diff hematocrit 48.4 % 37.5-5 1.0 Not Available [facility] ([facility]) [address] [facility] [address], [place], [address], 01/03/2017 10:37:13 01/03/20 17 01/03/2017 CBC w/ auto diff MCV 91 fL 79-97 Not Available [facility] ([facility]) [address] [facility] [address], [place], [address], 01/03/2017 10:37:13 01/03/20 17 01/03/2017 CBC w/ auto diff MCH 30.5 pg 26.6-3 3.0 Not Available [facility] ([facility]) [address] [facility] [address], [place], [address], 01/03/2017 10:37:13 01/03/20 17 01/03/2017 CBC w/ auto diff MCHC 33.5 g/dL 31.5-3 5.7 Not Available [facility] ([facility]) [address] [facility], [place], [address], 01/03/2017 10:37:13 01/03/20 17 01/03/2017 CBC w/ auto diff RDW 14.1 % 12.3-1 5.4 Not Available [facility] ([facility]) [address] [facility], [place], [address], 01/03/2017 10:37:13 01/03/20 17 01/03/2017 CBC w/ auto diff platelets 356 x10e3 /uL 150-37 9 Not Available [facility] ([facility]) [address] [place], [address], 01/03/2017 10:37:13 01/03/20 17 01/03/2017 CBC w/ auto diff neutrophils 54 % Not Available [facility] ([facility]) [address] [place], [address], 01/03/2017 10:37:13 01/03/20 17 01/03/2017 CBC w/ auto diff lymphs 33 % Not Available [facility] ([facility]) [address] [place], [address], 01/03/2017 10:37:13 01/03/20 17 01/03/2017 CBC w/ auto diff monocytes 9 % Not Available [facility] ([facility]) [address] [place] [address], [address], 01/03/2017 10:37:13 01/03/20 17 01/03/2017 CBC w/ auto diff eos 3 % Not Available [facility] ([facility]) [address] [place] [address], [address], 01/03/2017 10:37:13 01/03/20 17 01/03/2017 CBC w/ auto diff basos 1 % Not Available [facility] ([facility]) [address] [place] [address], [address], 01/03/2017 10:37:13 01/03/20 17 01/03/2017 CBC w/ auto diff immature cells SOFTWARE SECURITY CONSULTANT Not Available [facility] ([facility]) [address] [place] [address], [address], 01/03/2017 10:37:13 01/03/20 17 01/03/2017 CBC w/ auto diff neutrophils (absolute) 5.2 x10e3 /uL 1.4-7. 0 Not Available [facility] ([facility]) [address] [facility], [place], [address], 01/03/2017 10:37:13 01/03/20 17 01/03/2017 CBC w/ auto diff lymphs (absolute) 3.1 x10e3 /uL 0.7-3. 1 Not Available [facility] ([facility]) [address] [facility] [address], [place], [address], 01/03/2017 10:37:13 01/03/20 17 01/03/2017 CBC w/ auto diff monocytes(ab solute) 0.9 x10e3 /uL 0.1-0. 9 Not Available [facility] ([facility]) [address] [facility] [address], [place], [address], 01/03/2017 10:37:13 01/03/20 17 01/03/2017 CBC w/ auto diff eos (absolute) 0.3 x10e3 /uL 0.0-0. 4 Not Available [facility] ([facility]) [address] [facility] [address], [place], [address], 01/03/2017 10:37:13 01/03/20 17 01/03/2017 CBC w/ auto diff baso (absolute) 0.1 x10e3 /uL 0.0-0. 2 Not Available [facility] ([facility]) [address] [facility] [address], [place], [address], 01/03/2017 10:37:13 01/03/2001/03/2017 CBC w/ auto diff immature granulocytes 0 % Not Available [facility] ([facility]) [address] [facility] [address], [place], [address], 01/03/2017 10:37:13 01/03/2001/03/2017 CBC w/ auto diff immature grans (abs) 0.0 x10e3 /uL 0.0-0. 1 Not Available [facility] ([facility]) [address] [facility] [address], [place], [address], 01/03/2017 10:37:13 01/03/20 17 01/03/2017 CBC w/ auto diff NRBC SOFTWARE SECURITY CONSULTANT Not Available [facility] ([facility]) [address] [facility] [place], [address], 01/03/2017 10:37:13 01/03/20 17 01/03/2017 CBC w/ auto diff hematology comments: Note: Verif ied by rossy pina nFlor Not Available [facility] ([facility]) [address] [facility] [place], [address], 01/03/2017 10:37:13 01/03/20 17 01/03/2017 CMP, serum or plasm a glucose, serum 91 mg/dL 65-99 Not Available [facility] ([facility]) [address] [facility] [place], [address], 01/03/2017 10:37:14 01/03/20 17 01/03/2017 CMP, serum or plasm a BUN 13 mg/dL 6-20 Not Available [facility] ([facility]) [address] [facility] [place], [address], 01/03/2017 10:37:14 01/03/20 17 01/03/2017 CMP, serum or plasm a creatinine, serum 1.39 mg/dL 0.76-1 .27 above high normal Not Available [facility] ([facility]) [address] [place], [address], 01/03/2017 10:37:14 01/03/20 17 01/03/2017 CMP, serum or plasm a eGFR if nonafricn AM 64 mL/mi n/1.7 3 >59 Not Available [facility] ([facility]) [address] [facility] [place], [address], 01/03/2017 10:37:14 01/03/20 17 01/03/2017 CMP, serum or plasm a eGFR if africn AM 74 mL/mi n/1.7 3 >59 Not Available [facility] ([facility]) [address] [place], [address], 01/03/2017 10:37:14 01/03/20 17 01/03/2017 CMP, serum or plasm a BUN/creatini ne ratio 9 9-20 Not Available [facility] ([facility]) [address] [place], [address], 01/03/2017 10:37:14 01/03/20 17 01/03/2017 CMP, serum or plasm a sodium, serum 140 mmol/ L 134-14 4 Not Available [facility] ([facility]) [address] [facility] [place], [address], 01/03/2017 10:37:14 01/03/20 17 01/03/2017 CMP, serum or plasm a potassium, serum 4.4 mmol/ L 3.5-5. 2 Not Available [facility] ([facility]) [address] [facility] [place], [address], 01/03/2017 10:37:14 01/03/20 17 01/03/2017 CMP, serum or plasm a chloride, serum 94 mmol/ L 96-106 below low normal Not Available [facility] ([facility]) [address] [facility] [address], [place], [address], 01/03/2017 10:37:14 01/03/20 17 01/03/2017 CMP, serum or plasm a calcium, serum 9.5 mg/dL 8.7-10 .2 Not Available [facility] ([facility]) [address] [facility] [place], [address], 01/03/2017 10:37:14 01/03/20 17 01/03/2017 CMP, serum or plasm a protein, total, serum 7.6 g/dL 6.0-8. 5 Not Available [facility] ([facility]) [address] [facility] [place], [address], 01/03/2017 10:37:14 01/03/20 17 01/03/2017 CMP, serum or plasm a albumin, serum 4.3 g/dL 3.5-5. 5 Not Available [facility] ([facility]) [address] [facility] [place], [address], 01/03/2017 10:37:14 01/03/20 17 01/03/2017 CMP, serum or plasm a globulin, total 3.3 g/dL 1.5-4. 5 Not Available [facility] ([facility]) [address] [facility] [place], [address], 01/03/2017 10:37:14 01/03/20 17 01/03/2017 CMP, serum or plasm a A/G ratio 1.3 1.2-2. 2 Not Available [facility] ([facility]) [address] [facility] [place], [address], 01/03/2017 10:37:14 01/03/20 17 01/03/2017 CMP, serum or plasm a bilirubin, total 0.6 mg/dL 0.0-1. 2 Not Available [facility] ([facility]) [address] [facility] [place], [address], 01/03/2017 10:37:14 01/03/20 17 01/03/2017 CMP, serum or plasm a alkaline phosphatase, S 76 IU/L 39-117 Not Available [facility] ([facility]) [address] [facility] [place], [address], 01/03/2017 10:37:14 01/03/20 17 01/03/2017 CMP, serum or plasm a AST (SGOT) 21 IU/L 0-40 Not Available [facility] ([facility]) [address] [facility] [place], [address], 01/03/2017 10:37:14 01/03/20 17 01/03/2017 lipid panel , serum cholesterol, total 165 mg/dL 100-19 9 Not Available [facility] ([facility]) [address] [facility] [address], [place], [address], 01/03/2017 10:37:15 01/03/20 17 01/03/2017 lipid panel , serum triglyceride s 98 mg/dL 0-149 Not Available [facility] ([facility]) [address] [place], [address], 01/03/2017 10:37:15 01/03/20 17 01/03/2017 lipid panel , serum HDL cholesterol 40 mg/dL >39 Not Available [facility] ([facility]) [address] [facility] [place], [address], 01/03/2017 10:37:15 01/03/20 17 01/03/2017 lipid panel , serum VLDL cholesterol abril 20 mg/dL 5-40 Not Available [facility] ([facility]) [address] [facility] [place], [address], 01/03/2017 10:37:15 01/03/20 17 01/03/2017 lipid panel , serum LDL cholesterol calc 105 mg/dL 0-99 above high normal Not Available [facility] ([facility]) [address] [place], [address], 01/03/2017 10:37:15 01/03/20 17 01/03/2017 lipid panel , serum comment: SOFTWARE SECURITY CONSULTANT Not Available [facility] ([facility]) [address] [place], [address], 01/03/2017 10:37:15 01/03/20 17 01/03/2017 TSH, ultra -sens itive , serum TSH 0.741 uIU/m L 0.450- 4.500 Not Available [facility] ([facility]) [address] [facility] [place], [address], 01/03/2017 10:37:15 01/03/20 17 01/03/2017 [email or web address] note please note Commen t The date and/o r time of colle ction was not indic ated on the requi sitio n as requi red by state and [place] law. The date of recei pt of the speci men was used as the colle ction date if not suppl ied. Not Available [facility] ([facility]) [address] [facility] [place], [address], 01/03/2017 10:37:16 02/01/20 17 01/31/2017 BMP, serum or plasm a glucose, serum 90 mg/dL 65-99 Speci men recei alfonzo in conta ct with cells . No visib le hemol ysis prese nt. Howev er GLUC may be decre ased and K incre ased. Clini abril corre latio n indic ated. Not Available [facility] ([facility]) [address] [facility] [place], [address], 01/31/2017 12:36:55 02/01/20 17 01/31/2017 BMP, serum or plasm a BUN 12 mg/dL 6-20 Not Available [facility] ([facility]) [address] [facility] [place], [address], 01/31/2017 12:36:55 02/01/20 17 01/31/2017 BMP, serum or plasm a creatinine, serum 1.18 mg/dL 0.76-1 .27 Not Available [facility] ([facility]) [address] [facility] [place], [address], 01/31/2017 12:36:55 02/01/20 17 01/31/2017 BMP, serum or plasm a eGFR if nonafricn AM 78 mL/mi n/1.7 3 >59 Not Available [facility] ([facility]) [address] [facility] [place], [address], 01/31/2017 12:36:55 02/01/20 17 01/31/2017 BMP, serum or plasm a eGFR if africn AM 90 mL/mi n/1.7 3 >59 Not Available [facility] ([facility]) [address] [facility] [place], [address], 01/31/2017 12:36:55 02/01/20 17 01/31/2017 BMP, serum or plasm a BUN/creatini ne ratio 10 9-20 Not Available [facility] ([facility]) [address] [facility] [address], [place], [address], 01/31/2017 12:36:55 02/01/20 17 01/31/2017 BMP, serum or plasm a sodium, serum 138 mmol/ L 134-14 4 Not Available [facility] ([facility]) [address] [facility] [address], [place], [address], 01/31/2017 12:36:55 02/01/20 17 01/31/2017 BMP, serum or plasm a potassium, serum 4.6 mmol/ L 3.5-5. 2 Speci men recei alfonzo in conta ct with cells . No visib le hemol ysis prese nt. Howev er GLUC may be decre ased and K incre ased. Clini abril corre latio n indic ated. Not Available [facility] ([facility]) [address] [facility] [address], [place], [address], 01/31/2017 12:36:55 02/01/20 17 01/31/2017 BMP, serum or plasm a chloride, serum 94 mmol/ L 96-106 below low normal Not Available [facility] ([facility]) [address] [facility], [place], [address], 01/31/2017 12:36:55 02/01/20 17 01/31/2017 BMP, serum or plasm a carbon dioxide, total 24 mmol/ L 18-29 Not Available [facility] ([facility]) [address] [place], [address], 01/31/2017 12:36:55 02/01/20 17 01/31/2017 BMP, serum or plasm a calcium, serum 9.5 mg/dL 8.7-10 .2 Not Available [facility] ([facility]) [address] [place], [address], 01/31/2017 12:36:55 02/01/20 17 01/31/2017 golden lockhart note please note Commen t The date and/o r time of colle ction was not indic ated on the requi sitio n as requi red by state and nicole al law. The date of recei pt of the speci men was used as the colle ction date if not suppl ied. Not Available [facility] ([facility]) [address] [place], [address], 01/31/2017 12:36:56 05/02/19 18 05/03/2017 drug scree n, urine amphetamine screen, urine Negati ve NG/mL cutoff =1000 Not Available [facility] ([facility]) [address] [place], [address], 05/03/2017 18:36:44 05/02/19 18 05/03/2017 drug scree n, urine barbiturates screen, urine Negati ve NG/mL cutoff =200 Not Available [facility] ([facility]) [address] [place], [address], 05/03/2017 18:36:44 05/02/19 18 05/03/2017 drug scree n, urine benzodiazepi vishnu screen, urine Negati ve NG/mL cutoff =200 Not Available [facility] ([facility]) [address] [place], [address], 05/03/2017 18:36:44 05/02/19 18 05/03/2017 drug scree n, urine cannabinoid screen, urine Negati ve NG/mL cutoff =20 Not Available [facility] ([facility]) [address] [place], [address], 05/03/2017 18:36:44 05/02/19 18 05/03/2017 drug scree n, urine cocaine (metab.) screen, urine Negati ve NG/mL cutoff =300 Not Available [facility] ([facility]) [address] [place], [address], 05/03/2017 18:36:44 05/02/19 18 05/03/2017 drug scree n, urine opiate screen, urine Negati ve NG/mL cutoff =300 Opiat e test inclu parish Codei ne, Morph ine, Tyronza morph one, Tyronza codon e. Not Available [facility] ([facility]) [address] [place], [address], 05/03/2017 18:36:44 05/02/19 18 05/03/2017 drug scree n, urine oxycodone/ox ymorphone, urine Negati ve NG/mL cutoff =100 Test inclu parish Oxyco done and Oxymo rphon e Not Available [facility] ([facility]) [address] [place], [address], 05/03/2017 18:36:44 05/02/19 18 05/03/2017 drug scree n, urine phencyclidin e screen, urine Negati ve NG/mL cutoff =25 Not Available [facility] ([facility]) [address] [place], [address], 05/03/2017 18:36:44 05/02/19 18 05/03/2017 drug scree n, urine methadone screen, urine Negati ve NG/mL cutoff =300 Not Available [facility] ([facility]) [address] [place], [address], 05/03/2017 18:36:44 05/02/19 18 05/03/2017 drug scree n, urine propoxyphene screen, urine Negati ve NG/mL cutoff =300 Not Available [facility] ([facility]) [address] [place], [address], 05/03/2017 18:36:44 05/02/19 18 05/03/2017 drug scree n, urine meperidine screen, urine Negati ve NG/mL cutoff =200 This test was devel oped and its perfo rmanc e joana cteri stics deter mined by [facility]. It has not been clear ed or appro alfonzo by the Food and Drug Admin istra tion. Not Available [facility] ([facility]) [address] [place], [address], 05/03/2017 18:36:44 05/02/19 18 05/03/2017 drug scree n, urine fentanyl, urine Negati ve pg/mL cutoff =2000 Test inclu parish Fenta nyl and Norfe ntany l This test was devel oped and its perfo rmanc e joana cteri stics deter mined by [facility]. It has not been clear ed or appro alfonzo by the Food and Drug Admin istra tion. Not Available [facility] ([facility]) [address] [place], [address], 05/03/2017 18:36:44 05/02/19 18 05/03/2017 drug scree n, urine tramadol screen, urine Negati ve NG/mL cutoff =200 Not Available [facility] ([facility]) [address] [place], [address], 05/03/2017 18:36:44 05/02/19 18 05/03/2017 drug scree n, urine creatinine, urine 113.3 mg/dL 20.0-3 00.0 Not Available [facility] ([facility]) [address] [place], [address], 05/03/2017 18:36:44 05/02/19 18 05/03/2017 drug scree n, urine pH, urine 6.3 4.5-8. 9 Not Available [facility] ([facility]) [address] [place], [address], 05/03/2017 18:36:44 05/02/19 18 05/03/2017 drug scree n, urine please note: Commen t This assay provi parish a preli minar y uncon firme d dwight tical test resul t that may be suita ble for clini abril manag ement of patie nts in certa in situa tions . Drug- test resul ts shoul d be inter prete d in the fracisco xt of clini abril infor kimberley [place] nt metab olic varia bles, speci fic drug chemi stry, and speci men joana cteri stics can affec t test outco me. Techn ical consu ltati on is avail able if a test resul t is incon siste nt with an expec jett outco me. ([email or web address] or call toll- free [phone]) Not Available [facility] ([facility]) [address] [facility] [address], [place], [address], 05/03/2017 18:36:44 05/02/19 18 05/03/2017 micro album in/cr eatin ine, mass ratio , urine creatinine, urine 115.2 mg/dL not estab. Not Available [facility] ([facility]) [address] [facility], [place], [address], 05/03/2017 18:36:45 05/02/19 18 05/03/2017 micro album in/cr eatin ine, mass ratio , urine albumin, urine <3.0 ug/mL not estab. Not Available [facility] ([facility]) [address] [facility], [place], [address], 05/03/2017 18:36:45 05/02/19 18 05/03/2017 micro album in/cr eatin ine, mass ratio , urine alb/creat ratio <2.6 mg/g_ creat 0.0-30 .0 Not Available [facility] ([facility]) [address] [place], [address], 05/03/2017 18:36:45 Result Notes None recorded. Problems Name Problem SNOMED Code Status Onset Date Resolution Date Notes Provider Name and Address Organization Details Recorded Time Asthma 819404411 Active 2016 Aisha Moon MD [address] [place], [address], [facility] 7 13:52:55 Arthriti s [id number] Active 2016 Aisha Moon MD [address] [place], [address], [facility] 7 13:53:16 Hyperten sive disorder 85099522 Completed 201601/02/2017 Aisha Moon MD [address] [place], [place], [address], [facility] 7 13:53:25 Gastroes ophageal reflux disease 590969573 Active 2016 Aisha Moon MD [address] [place], [address], [facility] 7 13:53:03 Chronic back pain 370045863 Active 2016 Aisha Moon MD [address] [place], [address], [facility] 7 13:52:48 Cerebral palsy 423794313 Active 2016 Aisha Moon MD [address] [place], [address], [facility] 7 13:52:45 Spondylo listhesi s 037130452 Active 2016 Aisha Moon MD [address] [place], [address], [facility] 7 13:53:07 Obstruct donis sleep apnea syndrome 01556091 Active 2016 Aisha Moon MD [address] [place], [address], [facility] 7 13:53:36 Body mass index 40+ - severely obese 518753516 Active 2016 Aisha Moon MD [address] [place], [address], [facility] 7 13:53:42 Backache 250525381 Completed 201601/02/2017 Recorded Elsewhere : No Locati on: [facility] [place] Source: EHR Chron ic: N Practic e ID: [id number] Bill able Time: 02:15:00 PM Aisha Moon MD [address] [place], [address], [facility] 7 13:52:49 Diabetes mellitus screenin g Completed 201601/02/2017 Recorded Elsewhere : No Locati on: [facility] [place] Source: EHR Chron ic: N Practic e ID: [id number] Bill able Time: 02:45:00 PM Aisha Moon MD [address] [place], [address], [facility] 7 13:52:51 Clinical finding Completed 201601/02/2017 Recorded Elsewhere : No Locati on: [facility] [place] Source: EHR Chron ic: N Practic e ID: [id number] Bill able Time: 02:45:00 PM Aisha Moon MD [address] [place], [address], [facility] 7 13:52:58 Primary insomnia 1782530 Active 2016 Aisha Moon MD [address] [place], [address], [facility] 7 13:53:30 Evaluati on procedur e Completed 201601/02/2017 Recorded Elsewhere : No Locati on: [facility] [place] Source: EHR Chron ic: N Practic e ID: [id number] Bill able Time: 02:45:00 PM Aisha Moon MD [address] [place], [address], [facility] 7 13:53:10 Essentia l hyperten carlin 60862019 Active 2016 Aisha Moon MD [address] [place], [address], [facility] 7 13:53:46 Tarsal tunnel syndrome 34470959 Active 2017 Aisha Moon MD [address] [place], [address], [facility] 8 15:50:59 Problem Notes None recorded. Medical Equipment None Reported. Allergies No known drug allergies Medications Name Sig Start Date Stop Date Status Note LastModified by Organization Details LastModified Time cyclobenzap rine 10 mg tablet take 1 tab twice a day 05/02 completed Not Available Not Available Not Available metoprolol succinate ER 50 mg tablet,exte nded release 24 hr 01/02 completed Not Available Not Available Not Available meloxicam 15 mg tablet take 1 tab daily active Not Available Not Available No t Available metoprolol succinate ER 100 mg tablet,exte nded release 24 hr take 1 tab daily active Not Available Not Available No t Available gabapentin 400 mg capsule take 1 capsule three times a day active Not Available Not Available No t Available amlodipine 5 mg tablet 01/02 completed Not Available Not Available Not Available omeprazole 40 mg capsule,del ayed release TAKE 1 CAPSULE BY ORAL ROUTE EVERY DAY BEFORE A MEAL NEEDED FOR REFLUX active Not Available Not Available No t Available Zanaflex 4 mg tablet Take 1 tablet(s) twice a day by oral route. active Not Available Not Available No t Available amlodipine 10 mg tablet take 1 tab daily active Not Available Not Available No t Available losartan 50 mg-hydrochl orothiazide 12.5 mg tablet take 2 tabs daily active Not Available Not Available No t Available Ventolin HFA 90 mcg/actuati on aerosol inhaler Inhale 2 puffs every 4 hours by inhalatio n route as needed. active Not Available Not Available No t Available duloxetine 60 mg capsule,del ayed release Take 1 capsule(s ) every day by oral route. active Not Available Not Available No t Available chlorhexidi ne gluconate 0.12 % mouthwash 01/02 completed Not Available Not Available Not Available Nucynta 75 mg tablet take 1 tab twice a day active Not Available Not Available No t Available Vitals Date Recorded Body height Body mass index (BMI) Body weight Respiratory rate Body temperature Heart rate Systolic blood pressure Diastolic blood pressure Systolic blood pressure Diastolic blood pressure Provider Name and Address Organization Details Last Updated DateTime 8 170.18 cm 51.3 kg/m2 532564. 86 g 24 /min 98.1 [degF] 80 /min 144 mm[Hg] 110 mm[Hg] 120 mm[Hg] 88 mm[Hg] Alie Mar MA [address] [place], [address] [place] [address] 8 10:41:22 Date Recorded Body height Body mass index (BMI) Body weight Heart rate Respiratory rate Body temperature Systolic blood pressure Diastolic blood pressure Provider Name and Address Organization Details Last Updated DateTime 7 170.18 cm 48.5 kg/m2 526053. 14 g 76 /min 12 /min 98.5 [degF] 128 mm[Hg] 82 mm[Hg] Adele talbert, [facility] [address] [place], [address] [place] [address] 7 14:02:26 Date Recorded Body height Body mass index (BMI) Body weight Heart rate Respiratory rate Body temperature Systolic blood pressure Diastolic blood pressure Provider Name and Address Organization Details Last Updated DateTime 7 170.18 cm 49.6 kg/m2 976901. 7 g 72 /min 24 /min 97.9 [degF] 132 mm[Hg] 82 mm[Hg] Addie Oshea MA [address] [place], [address] [place] [address] 7 13:16:04 Social History Question Answer Notes LastModified by Organizat ion Details LastModified Time Tobacco Smoking Status Current Some Day Smoker Adele Chopra, [facility] [address] [place], [address], [facility] 01/02/2017 13:57:16 Which Illicit Or Recreational Drugs Have You Used? None [email or web address] Information not available 01/02/2017 How Many Days In The Past Year Have You Had A Heavy Drinking Consumption (4+ Female, 5+ Male)? 0 [email or web address] Information no t available 01/02/2017 Score 0 [email or web address] Information no t available 01/02/2017 What Was The Date Of Your Most Recent Tobacco Screening? 05/02/2017 Information not available 10/30/2018 Sex: Unknown Functional Status Question Answer Note LastModified by Organization D etails LastModified Time What is your level of alcohol consumption? None [email or web address] Information not available 01/02/2017 Mental Status None recorded. Family History Relationship Description Onset Age of this Age Resolved Age Notes LastModified by Organization Details LastModified Time Mother Diabetes mellitus [email or web address] Not available 2016 13:56:35 Mother History of renal failure [email or web address] Not available 2016 13:56:50 Maternal Grandfather Diabetes mellitus [email or web address] Not available 2016 13:56:59 Brother Diabetes mellitus Not available 2016 13:57:04 Medical History Condition Response Other Hypertension Y Depression Y Asthma Y Surgery Y Past Encounters Encounter ID Performer Location Encounter Start Date Encounter Closed Date Diagnosis/Indication Diagnosis SNOMED-CT Code Diagnosis ICD10 Code Diagnosis Note [id number] MD AURELIO Jules [id number] [facility] [place] [address] 01/02/2017 13:37:51 01/02/2017 15:30:59 Essential hypertension 43193933 I10 history of - stable - continue amlodipine , losartan/H CTZ, metoprolol - follow up in 1 month for depression Paresthesi a of lower extremity 793841962 R20.2 unknown etiology - check nerve conduction test, xray - check labs to rule out any underlying causes Adjustment disorder with depressed mood 44942315 F43.21 grieving of girlfriend 2 months ago - start cymbalta daily - follow up with nadira for counseling - follow up in 1 month Spondylolisthesis 103696 003 M43.10 history of - with chronic back pain - follow up with pain management as scheduled - continue mobic, nucynta, gabapentin , flexeril per pain management Gastroesop hageal reflux disease 822831933 K21.9 history of - stable - continue omeprazole as needed [id number] MD AURELIO Jules [id number] [facility]ACED [facility] [place] [address] 01/30/2017 13:07:47 01/30/2017 15:46:34 Nicotine dependence 41998365 F17.200 The best thing you can do for your health is quit smoking. Call 5-401Med.lyQUIT -NOW, a free quitline that can help people stop smoking. You can get free medication s to help with quitting by talking to them. We also welcome you to check out our Tobacco Treatment Group every Saturday from 3:30-4:30 at the [facility] office on [address] [place] [address]. This is open to [facility] patients as well as non-[facility] patients. We have snacks, gift cards for attending multiple sessions and great advice from other smokers! Obstructiv e sleep apnea syndrome 88376181 G47.33 history of - uncontroll ed - refer to sleep medicine for further evaluation and treatment Essential hypertension 82253669 I10 history of - stable - continue amlodipine , losartan/H CTZ, metoprolol - follow up in 3 months Paresthesi a of lower extremity 585314598 R20.2 nerve conduction test consistent with tarsal tunnel syndrome - follow up with ortho Adjustment disorder with depressed mood 15908172 F43.21 grieving of girlfriend - improving - continue cymbalta daily - follow up in 3 months Spondylolisthesis 332361 003 M43.10 history of - with chronic back pain - follow up with pain management as scheduled - continue nucynta, gabapentin , flexeril per pain management - mobic stopped due to SUSAN Acute kidney injury 1466 9001 N17.9 on routine blood work - stopped mobic for 1 month - recheck blood work today - discussed drinking more water [id number] MD AURELIO Jules [address] [place] [address] 05/02/2017 10:15:37 05/02/2017 16:41:01 Nicotine dependence 63929465 F17.200 The best thing you can do for your health is quit smoking. Call 5-113-QUIT -NOW, a free quitline that can help people stop smoking. You can get free medication s to help with quitting by talking to them. We also welcome you to check out our Tobacco Treatment Group every Saturday from 3:30-4:30 at the [facility] office on [address] [place] [address]. This is open to [facility] patients as well as non-[facility] patients. We have snacks, gift cards for attending multiple sessions and great advice from other smokers! Spondylolisthesis 769806 003 M43.10 history of - with chronic back pain - follow up with pain management as scheduled - we cannot prescribe chronic pain medication - we will start prescribin g gabapentin and zanaflex - OARRS reviewed and appropriat e - UDS today - referred to neurosurge ry per request Essential hypertension 17683577 I10 history of - stable - continue amlodipine , losartan/H CTZ, metoprolol - follow up in 3 months Adjustment disorder with depressed mood 68570665 F43.21 stable - continue cymbalta daily - follow up in 3 months Health Concerns Section Related Observation LastModified by Organization Detai ls LastModified Time None Recorded Concern Status LastModified by Organization Details LastModified Time None Recorded Advance Directives Directive None Recorded Payers Encounter Date Sequence Insurance Name Policy Number Policy Blackburn Covered Member ID Blackburn Member ID Guarantor Name 01/02/2017 1 [facility] [id number] Rubio Ruiz [id number] Rubio Ruiz 01/30/2017 1 [facility] [id number] Rubio Ruiz [id number] Rubio Ruiz 05/02/2017 1 [facility] [id number] Rubio Ruiz [id number] Rubio Ruiz Notes Date Note Type Note Provider Name and Address Organization Details Recorded Time 01/02/2017 text/html presents for fol low up with the following concern Grieving/depression: - states girlfriend on November 05 after septic shock - states had hx of MS - had bad pressure ulcers that got infected - was in the hospital since August but eventually in October - pt feeling depressed/sad - low motivation/energy - has hx of depression in the past and was on cymbalta at one point which helped - also open to counseling Chronic low back pain with spondylolisthesis: - following with pain management - for the past month - has also noticed a sharp pain in bilateral feet - not severe - states happens when he bends his head down (not back) - just in feet - no neck pain - pain not severe but just 'weird' HTN: hx of - taking meds as prescribed without SE . [place], [address], [facility] 01/02/2017 14:52:24 01/30/2017 text/html presents for [facility] Adjustment disorder/depression: much improved on cymbalta - no SE - has also been talking with a friend who is helping GERTRUDE: hx of - not on cpap - never got sleep study in the past because pt was taking care of his ill girlfriend but now has time since she has - states usually sleeps on his side but had an episode a few days ago where he slept on his back and then woke up gasping for air - requests referral to sleep medicine SUSAN: on routine blood work - told to stop meloxicam 1 month ago and has not been taking - does not drink any water Tarsal tunnel syndrome - bilateral - on nerve conduction study - referred to ortho but pt needs number to call for the appt Aisha Moon MD [address] [place], [address], [facility] 01/30/2017 14:00:55 05/02/2017 text/html presents for [facility] low with the following concerns Spondylolisthesis: seen on xray - following with pain management for medication - pt wondering if he could get his prescriptions here due to transportation issues but told that I do not prescribed chronic pain medication. Requests refills for muscle relaxer and gabapentin here so he does not have to 'deal with' the pain management office. - states gets too drowsy on flexeril - also requests referral to neurosurgery to see if there are surgical options Tarsal tunnel syndrome - seen on nerve conduction - numbness/tingling in LE - never followed up with ortho but symptoms not bothersome so would like to hold off for now - would rather see neurosurgery for back first Depression: - stable - 'pretty good' - no SE from cymbalta HTN: - taking medication as prescribed - no concerns - states bought a BP monitor and plans to check at home Aisha Moon MD [address] [place], [address], [facility] 05/02/2017 15:56:00
--- OUTSIDE RECORDS SUMMARY | 2024-09-16 10:15 | XMS_ITS | Encounter Summary ---
Author Organization Healthcare Address [address] [place] [address] Care Team Providers Care Waste Water Or Water Plant Operator Name Role Phone Dixie Drew MD Primary Care Provider [phone] Encounter Details Date Type Department Care Team (Late st Contact Info) Description 09/15/2024 Telephone [facility] [address] [place] [address] Piotr Wick, PharmD [place] [id number] Social History Tobacco Use Types Packs/Day Years Used Date Smoking Tobacco: Every Day Cigarettes 0.5 4 Started: 09/20/2020 Passive Smoke Exposure: Current Smokeless Tobacco: Never Alcohol Use Standard Drinks/Week Comments Yes 0 (1 standard drink = 0.6 oz pur e alcohol) PHQ-2 Answer Date Recorded Patient Health Questionnaire-2 Score 0 06/12/2024 PHQ-9 Answer Date Recorded Patient Health Questionnaire-9 Score 0 03/12/2024 Sex and Gender Information Value Date Recorded Sex Assigned at Male 12/11/2023 2:26 PM EDT Legal Sex Male 3:26 PM EDT Gender Identity Male 12/11/2023 2:26 PM EDT Sexual Orientation Straight 12/11/2023 2: 26 PM EDT documented as of this encounter Miscellaneous Notes * Telephone Encounter - Piotr Wick PharmD - 09/15/2024 7:35 AM EDT 1 medication(s) has been approved per protocol. documented in this encounter Plan of Treatment Upcoming Encounters Date Type Department Care Team (Late st Contact Info) Description 12/15/2024 2:20 PM EDT Office Visit [facility] [address] [place] [address] Nany Beard, DISCIPLINARY HEARING OFFICER [address] [place] [address] documented as of this encounter Visit Diagnoses Diagnosis Gout- Primary Gout, unspecified Idiopathic gout, right ankle and foot High risk medication use documented in this encounter Additional Health Concerns Assessment Noted Time PHQ-9 Depression Total Score: 0 03/12/20 24 3:17 PM EST A fall risk assessment has been complete d for the patient 06/12/2024 1:33 PM EST A Body Mass Index follow-up plan has been documented for the patient 06/12/2024 2:12 PM EST documented as of this encounter Care Teams Waste Water Or Water Plant Operator Relationship Specialty Start Date End Date Diixe Drew MD [address] [facility] [place] [address] PCP - General 02/21/21 documented as of this encounter
--- OUTSIDE RECORDS SUMMARY | 2024-09-16 10:15 | XMS_ITS | Data Portability ---
Author Organization [facility] Address [address] [place] [address] Assessment Encounter Date Assessment Date Assessment LastModified by Organization Details LastModified Time 10/31/2023 10/31/2023 -Medications were reviewed and any necessary updates and renewals were made, patient instructed to complete as prescribed. -The potential side effects of medications were discussed. -Counseling was done on care goals and ways to prevent future hospitalizatio ns. -Further treatment per orders listed below. [email or web address] Not available 10/31/2023 15:16:15 Plan of Treatment Reminders Order Date Submit Date Provider Last Modified By Organization Details Last Modified Time Details Appointments None recorded . Lab HbA1c (hemoglo bin A1c), blood 2023 024 TIFFANY [facility], [address], [address] [address], [place], [address], 4 06:25:03 lipid panel, serum 2023 024 TIFFANY [facility], [address], [place], [place], [address], 4 06:25:01 uric acid, serum or plasma 2023 024 TIFFANY [facility], [address], [place], [place], [address], 4 04:11:23 renal function panel, serum 2023 024 TIFFANY [facility], [address], [place], [place], [address], 4 04:11:22 uric acid, serum or plasma 2023 024 TIFFANY [facility], [address], [place], [place], [address], 4 04:10:14 renal function panel, serum 2023 024 TIFFANY [facility], [address], [place], [place], [address], 4 04:10:13 Referral rheumato logist referral [address] [facility], [address] [facility], [address], [place], [address], 4 08:05:51 Procedures None recorded . Surgeries None recorded . Imaging None recorded . Medication Orders allopuri nol 300 mg tablet 2023 025 [facility]84680, [address], [id number], 5 10:49:05 omeprazo le 20 mg capsule, delayed release 2023 024 [facility] #36171, [address], [id number], 4 14:56:49 glipizid e 10 mg tablet 2023 024 [facility] #32022, [address], [id number], 4 14:56:50 metformi n 500 mg tablet 2023 024 [facility], [address], [id number], 4 14:56:44 Ozempic 0.25 mg or 0.5 mg (2 mg/1.5 mL) subcutan eous pen injector 2023 025 [facility] #65241, [address], [id number], 5 10:50:29 albutero l sulfate HFA 90 mcg/actu ation aerosol inhaler 2023 024 [facility] #19856, [address], [id number], 4 14:56:41 losartan 100 mg tablet 2023 [facility] #08464, [address], [id number], 4 14:56:40 amlodipi ne 10 mg tablet 2023 024 [facility] #36664, [address], [id number], 4 14:56:44 furosemi de 80 mg tablet 2023 024 [facility] #96545, [address], [id number], 4 14:56:46 metoprol ol succinat e ER 100 mg tablet,e xtended release 24 hr 2023 [facility] #05967, [address], [id number], 4 14:56:47 potassiu m chloride ER 10 mEq tablet,e xtended release 2023 [facility] #89727, [address], [id number], 4 14:56:47 hydrochl orothiaz chaka 25 mg tablet [address] [facility] #17066, [address], [id number], 5 10:49:23 tizanidi ne 4 mg tablet 2023 024 [facility] #44640, [address], [id number], 4 14:56:40 sildenaf il 100 mg tablet 2023 024 [facility] #70287, [facility] [address], [id number], 4 14:56:43 indometh acin 50 mg capsule 2023 024 [facility] #39184, [facility] [address], [id number], 4 14:28:26 allopuri nol 300 mg tablet [address] [facility] #97264, [address] [place] [address], [id number], 5 10:48:42 allopuri nol 300 mg tablet [address] [facility] #31047, [facility] [address], [id number], 5 10:48:42 ketorola c 30 mg/mL (1 mL) injectio n solution 2023 024 [email or web address] Not available 13:56:45 allopuri nol 100 mg tablet 2023 [facility] #40639, [address], [id number], 13:56:42 Patient TargetsNo targets recorded. Patient Instructions Encounter Date Encounter Id Patient Instructions Last Modified By Organization Details Last Modified Time 10/31/2023 [id number] body mass index: care instructions [email or web address] Not available 10/31/2023 15:33:50 learning about healthy weight [email or web address] Not available 10/31/2023 15:33:50 -take medication s as prescribed -follow up in 2 weeks for re-evaluation Not available 10/31/2023 15:31:12 11/11/2023 [id number] body mass index: care instructions [email or web address] Not available 11/11/2023 15:05:03 learning about healthy weight [email or web address] Not available 11/11/2023 15:05:03 -take medication s as prescribed -follow up in 2 weeks for re-evaluation Not available 11/11/2023 15:05:48 11/25/2023 [id number] -take medication s as prescribed -will call with lab results when available -follow up with rheumatology RHETT [email or web address] Not available 11/25/2023 14:12:26 01/08/2024 [id number] When You Want to Lose Weight: Care Instructions [email or web address] Not available 01/08/2024 16:02:22 body mass index: care instructions [email or web address] Not available 01/08/2024 14:56:44 learning about healthy weight tgrosser Not available 01/08/2024 14:56:44 deciding about using medicines to quit smoking [email or web address] Not available 01/08/2024 16:02:22 Quitting Tobacco : Care Instructions tgrosser Not available 01/08/2024 16:02:22 body mass index: care instructions tgrosser Not available 01/08/2024 16:02:22 learning about healthy weight tgrosser Not available 01/08/2024 16:02:22 08/14/2024 [id number] body mass index: care instructions [email or web address] Not available 08/14/2024 11:11:18 learning about healthy weight tgrosser Not available 08/14/2024 11:11:18 deciding about using medicines to quit smoking [email or web address] Not available 08/14/2024 11:30:13 Quitting Tobacco : Care Instructions tgrosser Not available 08/14/2024 11:30:13 body mass index: care instructions [email or web address] Not available 08/14/2024 11:30:13 learning about healthy weight tgrosser Not available 08/14/2024 11:30:13 Reason for Referral [employer] Referral for Gout Referring Physician: Roosevelt Elias, Family Medicine, Encounter Date: 11/25/2023 Results Created Date Observation Date Name Description Value Unit Range Abnormal Flag Note LastModifiedBy Organization Detail LastModifiedTime 11/11/1911/12/2023 RENAL PANEL (10) glucose 77 mg/dL 70-99 normal Not Available [facility] ([facility]) [address] [place], [address], 11/12/2023 04:10:13 11/11/1911/12/2023 RENAL PANEL (10) BUN 16 mg/dL 6-24 normal Not Available [facility] ([facility]) [address] [place], [address], 11/12/2023 04:10:13 11/11/1911/12/2023 RENAL PANEL (10) creatinine 1.59 mg/dL 0.76-1 .27 above high normal Not Available [facility] ([facility]) [address] [place], [address], 11/12/2023 04:10:13 11/11/1911/12/2023 RENAL PANEL (10) eGFR 54 mL/mi n/1.7 3 >59 below low normal Not Available [facility] ([facility]) [address] [place], [address], 11/12/2023 04:10:13 11/11/19 24 11/12/2023 RENAL PANEL (10) BUN/creatini ne ratio 10 9-20 normal Not Available [facility] ([facility]) [address] [facility] [place], [address], 11/12/2023 04:10:13 11/11/19 24 11/12/2023 RENAL PANEL (10) sodium 138 mmol/ L 134-14 4 normal Not Available [facility] ([facility]) [address] [facility] [place], [address], 11/12/2023 04:10:13 11/11/19 24 11/12/2023 RENAL PANEL (10) potassium 3.2 mmol/ L 3.5-5. 2 below low normal Not Available [facility] ([facility]) [address] [facility] [place], [address], 11/12/2023 04:10:13 11/11/19 24 11/12/2023 RENAL PANEL (10) chloride 94 mmol/ L 96-106 below low normal Not Available [facility] ([facility]) [address] [facility] [place], [address], 11/12/2023 04:10:13 11/11/19 24 11/12/2023 RENAL PANEL (10) carbon dioxide, total 29 mmol/ L 20-29 normal Not Available [facility] ([facility]) [address] [facility] [place], [address], 11/12/2023 04:10:13 11/11/19 24 11/12/2023 RENAL PANEL (10) calcium 9.9 mg/dL 8.7-10 .2 normal Not Available [facility] ([facility]) [address] [facility] [place], [address], 11/12/2023 04:10:13 11/11/19 24 11/12/2023 RENAL PANEL (10) phosphorus 2.4 mg/dL 2.8-4. 1 below low normal Not Available [facility] ([facility]) [address] [facility], [place], [address], 11/12/2023 04:10:13 11/11/19 24 11/12/2023 RENAL PANEL (10) albumin 4.3 g/dL 4.1-5. 1 normal Not Available [facility] ([facility]) [address] [facility] [place], [address], 11/12/2023 04:10:13 11/11/19 24 11/12/2023 URIC ACID uric acid 10.2 mg/dL 3.8-8. 4 above high normal Thera areli c kari t for gout patie nts: <6.0 Not Available [facility] ([facility]) [address] [place], [address], 11/12/2023 04:10:14 11/25/19 24 11/26/2023 RENAL PANEL (10) glucose 104 mg/dL 70-99 above high normal Not Available [facility] ([facility]) [address] [facility], [place], [address], 11/26/2023 04:11:22 11/25/19 24 11/26/2023 RENAL PANEL (10) BUN 19 mg/dL 6-24 normal Not Available [facility] ([facility]) [address] [place], [address], 11/26/2023 04:11:22 11/25/19 24 11/26/2023 RENAL PANEL (10) creatinine 1.46 mg/dL 0.76-1 .27 above high normal Not Available [facility] ([facility]) [address] [place], [address], 11/26/2023 04:11:22 11/25/19 24 11/26/2023 RENAL PANEL (10) eGFR 60 mL/mi n/1.7 3 >59 normal Not Available [facility] ([facility]) [address] [place], [address], 11/26/2023 04:11:22 11/25/19 24 11/26/2023 RENAL PANEL (10) BUN/creatini ne ratio 13 9-20 normal Not Available [facility] ([facility]) [address] [facility] [place], [address], 11/26/2023 04:11:22 11/25/19 24 11/26/2023 RENAL PANEL (10) sodium 140 mmol/ L 134-14 4 normal Not Available [facility] ([facility]) [address] [facility] [place], [address], 11/26/2023 04:11:22 11/25/19 24 11/26/2023 RENAL PANEL (10) potassium 3.6 mmol/ L 3.5-5. 2 normal Not Available [facility] ([facility]) [address] [facility] [place], [address], 11/26/2023 04:11:22 11/25/19 24 11/26/2023 RENAL PANEL (10) chloride 98 mmol/ L 96-106 normal Not Available [facility] ([facility]) [address] [facility] [place], [address], 11/26/2023 04:11:22 11/25/19 24 11/26/2023 RENAL PANEL (10) carbon dioxide, total 26 mmol/ L 20-29 normal Not Available [facility] ([facility]) [address] [facility] [place], [address], 11/26/2023 04:11:22 11/25/19 24 11/26/2023 RENAL PANEL (10) calcium 9.7 mg/dL 8.7-10 .2 normal Not Available [facility] ([facility]) [address] [facility] [place], [address], 11/26/2023 04:11:22 11/25/19 24 11/26/2023 RENAL PANEL (10) phosphorus 2.6 mg/dL 2.8-4. 1 below low normal Not Available [facility] ([facility]) [address] [facility], [place], [address], 11/26/2023 04:11:22 11/25/19 24 11/26/2023 RENAL PANEL (10) albumin 3.8 g/dL 4.1-5. 1 below low normal Not Available [facility] ([facility]) [address] [facility], [place], [address], 11/26/2023 04:11:22 11/25/19 24 11/26/2023 URIC ACID uric acid 7.9 mg/dL 3.8-8. 4 normal Thera peuti c targe t for gout patie nts: <6.0 Not Available [facility] ([facility]) [address] [facility], [place], [address], 11/26/2023 04:11:23 01/08/20 24 01/09/2024 LIPID PANEL cholesterol, total 162 mg/dL 100-19 9 normal Not Available [facility] ([facility]) [address] [place], [address], 01/09/2024 06:25:01 01/08/20 24 01/09/2024 LIPID PANEL triglyceride s 141 mg/dL 0-149 normal Not Available [facility] ([facility]) [address] [place], [address], 01/09/2024 06:25:01 01/08/20 24 01/09/2024 LIPID PANEL HDL cholesterol 40 mg/dL >39 normal Not Available [facility] ([facility]) [address] [place], [address], 01/09/2024 06:25:01 01/08/20 24 01/09/2024 LIPID PANEL VLDL cholesterol abril 25 mg/dL 5-40 Not Available [facility] ([facility]) [address] [place], [address], 01/09/2024 06:25:01 01/08/20 24 01/09/2024 LIPID PANEL LDL chol calc (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 6 above high normal Predi abete s: 5.7 - 6.4 Diabe landen: >6.4 Glyce meg contr ol for adult s with diabe landen: <7.0 Not Available [facility] ([facility]) [address] [facility], [place], [address], 01/09/2024 06:25:02 06/19/1906/19/2024 CBC WITH DIFFE RENTI AL/PL ATELE T WBC 9.4 x10e3 /uL 3.4-10 .8 normal Not Available [facility] ([facility]) [address] [facility], [place], [address], 06/19/2024 04:10:31 06/19/19 25 06/19/2024 CBC WITH DIFFE RENTI AL/PL ATELE T RBC 5.13 x10e6 /uL 4.14-5 .80 normal Not Available [facility] ([facility]) [address] [place], [address], 06/19/2024 04:10:31 06/19/19 25 06/19/2024 CBC WITH DIFFE RENTI AL/PL ATELE T hemoglobin 15.6 g/dL 13.0-1 7.7 normal Not Available [facility] ([facility]) [address] [place], [address], 06/19/2024 04:10:31 06/19/19 25 06/19/2024 CBC WITH DIFFE RENTI AL/PL ATELE T hematocrit 47.8 % 37.5-5 1.0 normal Not Available [facility] ([facility]) [address] [facility], [place], [address], 06/19/2024 04:10:31 06/19/1906/19/2024 CBC WITH DIFFE RENTI AL/PL ATELE T MCV 93 fL 79-97 normal Not Available [facility] ([facility]) [address] [place], [address], 06/19/2024 04:10:31 06/19/19 25 06/19/2024 CBC WITH DIFFE RENTI AL/PL ATELE T MCH 30.4 pg 26.6-3 3.0 normal Not Available [facility] ([facility]) [address] [place], [address], 06/19/2024 04:10:31 06/19/19 25 06/19/2024 CBC WITH DIFFE RENTI AL/PL ATELE T MCHC 32.6 g/dL 31.5-3 5.7 normal Not Available [facility] ([facility]) [address] [place], [address], 06/19/2024 04:10:31 06/19/1906/19/2024 CBC WITH DIFFE RENTI AL/PL ATELE T RDW 13.1 % 11.6-1 5.4 Not Available [facility] ([facility]) [address] [place], [address], 06/19/2024 04:10:31 06/19/19 25 06/19/2024 CBC WITH DIFFE RENTI AL/PL ATELE T platelets 297 x10e3 /uL 150-45 0 normal Not Available [facility] ([facility]) [address] [place], [address], 06/19/2024 04:10:31 06/19/19 25 06/19/2024 CBC WITH DIFFE RENTI AL/PL ATELE T neutrophils 49 % not estab. normal Not Available [facility] ([facility]) [address] [facility], [place], [address], 06/19/2024 04:10:31 06/19/19 25 06/19/2024 CBC WITH DIFFE RENTI AL/PL ATELE T lymphs 39 % not estab. normal Not Available [facility] ([facility]) [address] [facility], [place], [address], 06/19/2024 04:10:31 06/19/19 25 06/19/2024 CBC WITH DIFFE RENTI AL/PL ATELE T monocytes 8 % not estab. normal Not Available [facility] ([facility]) [address] [facility], [place], [address], 06/19/2024 04:10:31 06/19/19 25 06/19/2024 CBC WITH DIFFE RENTI AL/PL ATELE T eos 3 % not estab. normal Not Available [facility] ([facility]) [address] [facility], [place], [address], 06/19/2024 04:10:31 06/19/19 25 06/19/2024 CBC WITH DIFFE RENTI AL/PL ATELE T basos 1 % not estab. normal Not Available [facility] ([facility]) [address] [facility], [place], [address], 06/19/2024 04:10:31 06/19/19 25 06/19/2024 CBC WITH DIFFE RENTI AL/PL ATELE T immature cells SWITCH [employer]ER Not Available [facility] ([facility]) [address] [place], [address], 06/19/2024 04:10:31 06/19/19 25 06/19/2024 CBC WITH DIFFE RENTI AL/PL ATELE T neutrophils (absolute) 4.7 x10e3 /uL 1.4-7. 0 normal Not Available [facility] ([facility]) [address] [facility], [place], [address], 06/19/2024 04:10:31 06/19/19 25 06/19/2024 CBC WITH DIFFE RENTI AL/PL ATELE T lymphs (absolute) 3.6 x10e3 /uL 0.7-3. 1 above high normal Not Available [facility] ([facility]) [address] [facility], [place], [address], 06/19/2024 04:10:31 06/19/19 25 06/19/2024 CBC WITH DIFFE RENTI AL/PL ATELE T monocytes(ab solute) 0.7 x10e3 /uL 0.1-0. 9 normal Not Available [facility] ([facility]) [address] [facility], [place], [address], 06/19/2024 04:10:31 06/19/19 25 06/19/2024 CBC WITH DIFFE RENTI AL/PL ATELE T eos (absolute) 0.3 x10e3 /uL 0.0-0. 4 normal Not Available [facility] ([facility]) [address] [facility], [place], [address], 06/19/2024 04:10:31 06/19/19 25 06/19/2024 CBC WITH DIFFE RENTI AL/PL ATELE T baso (absolute) 0.1 x10e3 /uL 0.0-0. 2 normal Not Available [facility] ([facility]) [address] [place], [address], 06/19/2024 04:10:31 06/19/19 25 06/19/2024 CBC WITH DIFFE RENTI AL/PL ATELE T immature granulocytes 0 % not estab. Not Available [facility] ([facility]) [address] [facility], [place], [address], 06/19/2024 04:10:31 06/19/19 25 06/19/2024 CBC WITH DIFFE RENTI AL/PL ATELE T immature grans (abs) 0.0 x10e3 /uL 0.0-0. 1 Not Available [facility] ([facility]) [address] [facility], [place], [address], 06/19/2024 04:10:31 06/19/19 25 06/19/2024 CBC WITH DIFFE RENTI AL/PL ATELE T NRBC SWITCH [employer]ER Not Available [facility] ([facility]) [address] [facility], [place], [address], 06/19/2024 04:10:31 06/19/1906/19/2024 CBC WITH DIFFE RENTI AL/PL ATELE T hematology comments: SWITCH CLEANER Not Available [facility] ([facility]) [address] [facility], [place], [address], 06/19/2024 04:10:31 06/19/19 25 06/19/2024 HEPAT IC FUNCT ION PANEL (7) protein, total 6.6 g/dL 6.0-8. 5 normal Not Available [facility] ([facility]) [address] [facility], [place], [address], 06/19/2024 04:10:32 06/19/19 25 06/19/2024 HEPAT IC FUNCT ION PANEL (7) albumin 4.0 g/dL 4.1-5. 1 below low normal Not Available [facility] ([facility]) [address] [facility], [place], [address], 06/19/2024 04:10:32 06/19/19 25 06/19/2024 HEPAT IC FUNCT ION PANEL (7) bilirubin, total 0.4 mg/dL 0.0-1. 2 normal Not Available [facility] ([facility]) [address] [facility], [place], [address], 06/19/2024 04:10:32 03/13/06/19/2024 HEPAT IC FUNCT ION PANEL (7) bilirubin, direct 0.16 mg/dL 0.00-0 .40 normal Not Available [facility] ([facility]) [address] [place], [address], 06/19/2024 04:10:32 06/19/19 25 06/19/2024 HEPAT IC FUNCT ION PANEL (7) alkaline phosphatase 104 IU/L 44-121 normal Not Available [facility] ([facility]) [address] [place], [address], 06/19/2024 04:10:32 06/19/19 25 06/19/2024 HEPAT IC FUNCT ION PANEL (7) AST (SGOT) 18 IU/L 0-40 normal Not Available [facility] ([facility]) [address] [place], [address], 06/19/2024 04:10:32 06/19/19 25 06/19/2024 HEPAT IC FUNCT ION PANEL (7) ALT (SGPT) 18 IU/L 0-44 normal Not Available [facility] ([facility]) [address] [place], [address], 06/19/2024 04:10:32 06/19/19 25 06/19/2024 URIC ACID uric acid 3.8 mg/dL 3.8-8. 4 normal Naeema areli pierce t for gout patie nts: <6.0 Not Available [facility] ([facility]) [address] [place], [address], 06/19/2024 04:10:33 06/19/19 25 06/19/2024 CREAT ININE creatinine 1.48 mg/dL 0.76-1 .27 above high normal Not Available [facility] ([facility]) [address] [place], [address], 06/19/2024 04:10:33 06/19/19 25 06/19/2024 CREAT ININE eGFR 59 mL/mi n/1.7 3 >59 below low normal Not Available [facility] ([facility]) [address], [place], [address], 06/19/2024 04:10:33 Result Notes None recorded. Problems Name Problem SNOMED Code Status Onset Date Resolution Date Notes Provider Name and Address Organization Details Recorded Time Hypertensive disorder 94406094 Active Jessie Juan null, [place] - [facility] 9 17:34:26 Cerebral palsy 830611072 Active Jessie Juan [place], [place] - [facility] 17:34:33 Spondylolysis 421723335 Active Jessie [place], [place] - [facility] 17:34:42 Depressive disorder 92425040 Active Jessie [place] - [facility] 17:34:49 Anxiety 42709080 Active Jessie [place] [facility] 17:35:06 Acid reflux 498304656 Active Jessie Juan [place], [place] - [facility] 17:35:13 Vitamin K below reference range 672877626 Active 2018 Joe Art null, [place] - [facility] 17:37:12 Vitamin D deficiency 83703845 Active 2018 Joe Art null, [place] - [facility] 17:37:25 Essential hypertension 50844921 Active 2019 Ali Rajendra null, [place] - [facility] 0 13:19:55 Obstructive sleep apnea syndrome 42545904 Active 2020 Ali Rajendra null, [place] - [facility] 20:55:19 Swelling of bilateral lower limbs 245990922 Active 2020 Ali Rajendra [place] - [facility] 20:55:23 Body mass index 30+ - obesity 313510630 Active 2020 Ali Rajendra null[place] [facility] 20:55:26 Chronic kidney disease 517924713 Active 2020 Ali Rajendra [place] - [facility] 02:59:43 Lymphocytosis 27650906 Active 2020 Ali Rajendra [place], [place] - [facility] 1 12:32:57 Anti-nuclear factor detected 173851402 Active 2020 Ali Rajendra null, [place] - [facility] 1 12:42:25 Type 2 diabetes mellitus 04164751 Active 2021 Ali Rajendra null, [place] - [facility] 2 12:41:05 Low back pain 885884858 Active 2021 Ali Rajendra null, [place] - [facility] 2 14:44:47 Degeneration of lumbar intervertebral disc 23128415 Active 2021 Julio Linn MD [address], [place], [address], [place] - [facility] 2 13:35:56 Tobacco dependence syndrome 40161485 Active 2021 Claudia Bui null, [place] - [facility] 2 10:26:48 Lumbar radiculopathy 502711937 Active Kellee Dill null, [place] - [facility] 4 13:12:22 Gout 66519854 Active Kellee Dill [place], [place] - [facility] 4 13:12:22 Morbid obesity 577390407 Active 2023 Roosevelt Elias APRN [address], [place], [address], [place] - [facility] 4 15:28:13 Problem Notes None recorded. Procedures Surgical History Date Name Laterality Status Provider Name and Address Organization Details Recorded Time 10/31/19 24 Medication Reconcilliation completed Oneyda Philippe [place] - [facility] 10/31/2023 09:31:08 08/02/19 24 Medication Reconcilliation completed Claudia Bui [place] - [facility] 08/02/2023 13:46:51 01/05/20 23 Medication Reconcilliation completed Claudia Bui [place] [facility] 01/04/2023 09:05:56 02/29/20 22 Medication Reconcilliation completed Claudia Bui [place] [facility] 02/28/2022 10:21:54 lengthening of Achilles tendon completed Jessie Martinez [place] - [facility] 01/08/2019 17:37:07 Eye Surgery completed Jessie Juan [place] - [facility] 01/08/2019 17:37:18 Imaging Results None recorded. Procedure Notes None recorded. Medical Equipment None Reported. Allergies Allergen ID Allergen Name Allergen Category Reaction Reaction Severity Criticality Documentation Date Start Date Code Code System Note Provider Name and Address Organization Details Recorded Time [id number] No known allergy (situatio n) Not available Not available Not available Not available 10/21/2023 [id number] [id number] SNOMED Kellee Dill null, [place] - [...] TAKE 1 TABLET BY MOUTH EVERY DAY 02/28 completed Not Available Not Available Not Available [...] Last Updated DateTime 167.64 cm 47.1 kg/m2 449919. 97 g 98 [degF] 80 /min 97 % 97 % 18 /min 110 mm[Hg] 82 mm[Hg] Claudia WALLACE - [facility] 5 10:48:07 Date Recorded Body height Body mass index (BMI) Body weight Body temperature Oxygen saturation Oxygen saturation in Arterial blood by Pulse oximetry Respiratory rate Heart rate Systolic blood pressure Diastolic blood pressure Provider Name and Address Organization Details Last Updated DateTime 4 167.64 cm 48.6 kg/m2 961255. 3 g 98.1 [degF] 98 % 98 % 18 /min 97 /min 110 mm[Hg] 68 mm[Hg] Oneydasa Denae WALLACE - [facility] 4 15:04:40 Date Recorded Body height Body mass index (BMI) Body weight Respiratory rate Oxygen saturation Oxygen saturation in Arterial blood by Pulse oximetry Heart rate Systolic blood pressure Diastolic blood pressure Provider Name and Address Organization Details Last Updated DateTime 4 167.64 cm 48.6 kg/m2 424656. 3 g 18 /min 98 % 98 % 92 /min 142 mm[Hg] 86 mm[Hg] Oneydasa Philippe [place] - [facility] 4 14:54:05 Date Recorded Body height Body mass index (BMI) Body weight Body temperature Heart rate Oxygen saturation Oxygen saturation in Arterial blood by Pulse oximetry Respiratory rate Systolic blood pressure Diastolic blood pressure Provider Name and Address Organization Details Last Updated DateTime 4 167.64 cm 48.7 kg/m2 286978. 9 g 98.2 [degF] 90 /min 98 % 98 % 18 /min 126 mm[Hg] 80 mm[Hg] Oneyda Denae WALLACE - [facility] 4 13:56:05 Date Recorded Body height Body mass index (BMI) Body weight Body temperature Heart rate Oxygen saturation Oxygen saturation in Arterial blood by Pulse oximetry Respiratory rate Systolic blood pressure Diastolic blood pressure Provider Name and Address Organization Details Last Updated DateTime 4 167.64 cm 49.1 kg/m2 273203. 08 g 98.4 [degF] 102 /min 93 % 93 % 18 /min 100 mm[Hg] 70 mm[Hg] Claudia WALLACE - [facility] 4 14:26:55 Social History Question Answer Notes LastModified by Organizat ion Details LastModified Time Tobacco Smoking Status Current Every Day Smoker Claudia crook, [place] - [facility] 02/28/2022 10:26:40 Do You Have An Advance Directive? No Information not available 01/08/2019 Are You Blind Or Do You Have Difficulty Seeing? No Information not available 02/25/2019 What Is Your Level Of Caffeine Consumption? Moderate Information not available 01/08/2019 In The 14 Days Before Symptom Onset, Have You Had Close Contact With A Laboratory-confir med COVID-19 While That Case Was Ill? No [...] Or The Highest Degree You Have Received? [id number] Information not available 02/28/2022 Have There Been [...] anxious, or unable to sleep at night)? [id number] Information not available 02/28/2022 Do you have [...] Atrial Fibrillation N congenital heart disease N Kidney Stones N Blood Diseases N Hyperthyroidism N Rheumatoid arthritis N Blood Transfusion N Erectile Dysfunction N amputation N Colonoscopy N Skin Lesions N Depression Y COPD N Pneumonia N Incontinence N Murmur N Edema N Alzheimer's Disease N Migraine Headaches N Tobacco Abuse N Anxiety Disorder Y Muscle, Joint, or Bone Problems N Hemorrhoids N Obesity N Vision or Eye Problems N Restless Leg Syndrome N Arthritis N Polyps N Infertility N Mental Disorder N Carpal Tunnel N Acid Reflux (GERD) Y Cancer N Varicosities N Stroke N Tendonitis N Crohn's Disease N Hypercholesterolemia N Skin Cancer N Headaches N Fibromyalgia N Irritable Bowel Syndrome N Anal Fissure N Kidney Disease N Heart Problems N [...] D Deficiency N Cellulitis N Endometriosis N Bladder or Kidney Problems N Fracture N Liver Disease N Schizophrenia N Panic Disorder N Concussion N Spina Bifida N Allergies/Hayfever N Osteoarthritis N Parkinson's Disease N Disc Protrusion N STI N Esophagitis N Angina N Thyroid Problems N GI Problems N ADD/ADHD N Anemia N Multiple Sclerosis N Abnormal PAP N Lumbago N Mental Illness N Psychiatric Illness N Ovarian Cancer N Diabetes N Bedwetting N Degenerative Disc Disease N Seizures/Epilepsy N Congestive Heart Failure (CHF) N Syncope N Hyperlipidemia N Insomnia N Eczema N Abuse/Domestic Violence N Attention Deficient Disorder N Dementia N Diverticulitis N Ulcerative colitis N Cerebrovascular Disease N Depression N Guillain-[place] N Sleep Apnea N Aneurysm N Bronchitis N Heart Disease N Suicidal Ideation N Pre-Eclampsia N Hypertension Y Osteoporosis N Immunizations Vaccine Type Date Status Note Provider Nam e and Address Organization Details Recorded Time Td (adult), 2 Lf tetanus toxoid, preservative free, adsorbed 0 completed Jessie Martinez [place], [place] - [facility] 09/08/2019 18:16:17 Influenza, split virus, quadrivalent, PF 1 completed Vannesa Mendoza null, [place] - [facility] 01/10/2021 13:01:17 pneumococcal polysaccharide PPV23 2 completed Vandana Perez null, [place] - [facility] 05/09/2021 12:57:03 Influenza, split virus, quadrivalent, preservative 2 completed Claudia Bui [place], [place] - [facility] 02/28/2022 13:16:36 Influenza, split virus, quadrivalent, preservative 3 completed Oneyda Philippe null, [facility] [place] 01/16/2023 08:23:55 Influenza, split virus, trivalent, preservative 4 completed Claudia Bui null, [facility] [place] 01/08/2024 17:27:41 Influenza, split virus, quadrivalent, preservative 9 completed Not Available [facility] 04/25/2019 03:56:14 Past Encounters Encounter ID Performer Location Encounter Start Date Encounter Closed Date Diagnosis/Indication Diagnosis SNOMED-CT Code Diagnosis ICD10 Code Diagnosis Note [id number] Tamara Rdz APRN [address] [place] [address] 01/08/2019 17:03:45 01/08/2019 17:58:59 Bacterial vaginosis 626477777 N76.0 Essential hypertension 62888160 I10 [id number] Tamara Rdz APRN [address] [place] [address] 02/25/2019 11:32:32 02/25/2019 12:27:06 Depressive disorder 19186654 F32.9 Hypertensive disorder 38 700899 I10 Anxiety 66197879 F41.9 Acid reflux 703585369 K2 1.9 Administra tion of influenza vaccine 68818523 Z23 Essential hypertension 54405775 I10 Cerebral palsy 911151240 G80.9 Type 2 remy betes mellitus 08249380 E11.37X1 [id number] Tamara Rdz APRN [address] [place] [address] 06/04/2019 16:14:45 06/04/2019 17:36:40 Cerebral palsy 559986979 G80.9 Vitamin K below reference range 924114627 E56.1 Spondylolysis 199343198 M43.00 Vitamin D deficiency 347 78510 E55.9 Depressive disorder 3548 9007 F32.9 Hypertensive disorder 38 806741 I10 Anxiety 90266548 F41.9 Acid reflux 480631995 K2 1.9 Essential hypertension 26203473 I10 [id number] Dixie Drew MD [address] [place] [address] 09/08/2019 16:04:51 09/08/2019 17:24:07 Vitamin D deficiency 09421585 E55.9 Depressive disorder 3548 9007 F32.9 Controlled and stable. 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 I counselled patient about side effects of medicine (s). Seek an immediate medical attention i.e. see us or go to Er right away should get worse or develop any new symptoms or complaints . Call 911 and go to Er right away should develop any suicidal ideation. Follow up with us in 3 months Acid reflux 730229277 K2 1.9 Controlled . Renewed Omeprazole . He has declined to see GI or get EGD at this point. See us back or go to Er right away should gets worse or develops any new symptoms or complaints . Follow up in 8 weeks. Essential hypertension 75085378 I10 Continue current regimen. Recommende d to reduce dietary sodium intake to less than 100 mEq (2.3 g of sodium or 6 g of sodium chloride)/ day. Discussed weight loss, DASH diet and exercise programFol low up with us in 3 months Chronic low back pain 27 4620075 M54.5 Get XRS of lumbar spine. I reviewed patient's Rogelio report. Controlled substance agreement is up to date. Will do urine drug screen. Combinatio n of Mobic, Zanaflex and Gabapentin controls pain well. See us back or go to Er right away should gets worse or develops any new symptoms or complaints . Follow up with us in 4 weeks. Active or passive immunization 721210491 Z23 Body mass index 30+ - obesity 253529838 Z68.42 Take a low fat diet, exercise and loose weight. Follow up in 3 months [id number] Dixie Drew MD [address] [place] [address] 01/10/2021 11:52:39 01/10/2021 13:15:40 Swelling of bilateral lower limbs 944433678 M79.89 Get labs. Get CXR and Echocardio gram. Take Furosemide and Potassium chloride as prescribed . I also discussed with him elevating legs above heart level to help alleviate swelling. See us back or go to Er right away should get worse or develop any new symptoms or complaints . Follow up with us in a week or so. Body mass index 30+ - obesity 368946479 Z68.43 Take a low fat diet, exercise and loose weight. Follow up in 3 months Venereal d isease screening 851856240 Z11.3 Immunization advised 310 833464 Z71.9 No known egg allergies. Fluzone was given. He has declined to get COVID vaccines despite counsellin g and education Obstructiv e sleep apnea syndrome 44977076 G47.33 Patient has obstructiv e sleep apnea. Referred to sleep medicine specialist for a further evaluation and management . I warned and cautioned about not to engage in activities that require mental alertness like driving, operating machinery etc while feeling fatigued, tired, drowsy or sleepy. Follow up with us after consultati on with sleep medicine specialist . [id number] Dixie Drew MD [address] [place] [address] 01/23/2021 11:37:30 01/23/2021 12:13:07 Peripheral edema 675274216 R60.9 Continue Furosemide at current dose. Take potassium chloride 10 mEq once a day. Get outstandin g Echocardio gram. See us back or go to Er right away should get worse or develop any new symptoms or complaints . Follow up with me after Echocardio gram Leukocytosis 012893179 D 72.829 Get a repeat CBC with differenti al and then go from there Liver enzy mes outside reference range 676932654 R94.5 Get labs and RUQ abdominal US for work up. Avoid Tylenol and NSAIDs. Follow up with me in a week to discuss test results Hyperglycemia 11119778 R 73.9 I discussed with patient an appropriat e diabetic diet. Encouraged to develop an exercise program and loose weight. Get a repeat A1c in 3 months. Serum crea tinine above reference range 375105726 R79.89 I again recommende d he should not take NSAIDs like Advil, Motrin, Naproxen, Ibuprofen etc. Follow up with me in a week to discuss test results [id number] Dixie Drew MD [address] [place] [address] 04/12/2021 15:53:36 04/12/2021 17:34:44 Hyperglycemia 37343524 R73.9 A1c 6.7 on 01.23.21. I discussed with patient an appropriat e diabetic diet. Encouraged to develop an exercise program and loose weight. Get A1c Low back pain 031152541 M54.50 XRS of LS spine showed: Grade 2 spondyloli sthesis with severe disc degenerati on at L5-S1. Will get MRI of lumbar spine. Will refer for physical therapy and to pain management . See us back or go to Er right away should gets worse or develop any new symptoms or complaints . Follow up with us in four weeks. Immunization advised 310 393035 Z71.9 He has declined to get COVID, Hepatitis A and Hepatitis B vaccines despite counsellin g and education [id number] Dixie Drew MD [address] [place] [address] 05/09/2021 12:01:17 05/09/2021 13:30:12 Type 2 diabetes mellitus 05577325 E11.9 A1c 6.6 on 04.12.2021 . He has declined to take any medication s for diabetes mellitus at this point. I discussed weight reduction through diet, exercise, and behavioral modificati on. Monitor blood sugar at home. Bring log of blood sugar readings at follow up appointmen t. Get A1c on 07.11.21 and see us for same. See Ophthalmol ogist for diabetic eye examinatio n. Immunization advised 310 808339 Z71.9 He has declined to get COVID, Hepatitis A and Hepatitis B vaccines despite counsellin g and education Body mass index 30+ - obesity 600628489 Z68.43 Take a low fat diet, exercise and loose weight. Follow up in 3 months [id number] Julio Linn MD [address] [place] [address] 09/28/2021 12:54:31 09/28/2021 13:37:53 Acid reflux 553501563 K21.9 Anxiety 48245024 F41.9 Chronic ki dney disease 755921688 N18.9 Depressive disorder 3548 9007 F32.9 Hypertensive disorder 38 212791 I10 Obstructiv e sleep apnea syndrome 15993025 G47.33 Swelling o f bilateral lower limbs 017322687 M79.89 Type 2 remy betes mellitus 02874992 E11.9 Vitamin D deficiency 347 38372 E55.9 Primary er ectile dysfunction 852885744 N52.9 Chronic ob structive pulmonary disease 87468135 J44.9 Degenerati on of lumbar intervertebral disc 76477862 M51.36 Body mass index 40+ - severely obese 318062246 Z68.43 [id number] Julio Linn MD [address] [place] [address] 02/28/2022 10:13:49 02/28/2022 11:44:47 Influenza vaccine needed 7319253802 106 Z23 Acid reflux 305901735 K2 1.9 Anti-nucle ar factor detected 270408126 R76.8 Anxiety 45201804 F41.9 Body mass index 30+ - obesity 224707210 Z68.43 Cerebral palsy 155613590 G80.9 Chronic ki dney disease 092285082 N18.9 Degenerati on of lumbar intervertebral disc 82357069 M51.36 Depressive disorder 3548 9007 F32.9 Essential hypertension 17940160 I10 Hypertensive disorder 38 172133 I10 Obstructiv e sleep apnea syndrome 75461719 G47.33 Spondylolysis 292327425 M43.00 Type 2 remy betes mellitus 82991809 E11.9 Vitamin D deficiency 347 92571 E55.9 Tobacco de pendence syndrome 32482628 F17.023 [id number] Julio Linn MD [address] [place] [id number] 03/09/2022 10:05:14 03/09/2022 10:45:04 Type 2 diabetes mellitus 92340640 E11.9 Body mass index 40+ - severely obese 010717409 Z68.43 [id number] Julio Linn MD [address] [place] [address] 07/06/2022 12:44:58 07/06/2022 13:40:42 Tobacco dependence syndrome 38996685 F17.200 Cerebral palsy 879868639 G80.9 Body mass index 30+ - obesity 042521316 Z68.43 Anti-nucle ar factor detected 637122846 R76.8 Spondylolysis 560259351 M43.00 Degenerati on of lumbar intervertebral disc 99555031 M51.36 Vitamin D deficiency 347 24144 E55.9 Depressive disorder 3548 9007 F32.9 Hypertensive disorder 38 806901 I10 Type 2 remy betes mellitus 81286580 E11.9 Anxiety 24442079 F41.9 Essential hypertension 57645626 I10 Lymphocytosis 01765787 D 72.820 Acid reflux 235053446 K2 1.9 Chronic ki dney disease 859264824 N18.9 Obstructiv e sleep apnea syndrome 40391010 G47.33 Chronic ob structive pulmonary disease 10745767 J44.9 Swelling o f bilateral lower limbs 119041545 M79.89 Primary er ectile dysfunction 156226889 N52.9 [id number] Julio Linn MD [address] [place] [address] 01/04/2023 08:53:02 01/04/2023 09:50:12 Acid reflux 218228729 K21.9 Anti-nucle ar factor detected 815930573 R76.8 Anxiety 61884977 F41.9 Body mass index 30+ - obesity 059312770 Z68.43 Cerebral palsy 747729158 G80.9 Chronic ki dney disease 763849582 N18.9 Degenerati on of lumbar intervertebral disc 81376754 M51.36 Depressive disorder 3548 9007 F32.9 Essential hypertension 88572226 I10 Hypertensive disorder 38 053371 I10 Lymphocytosis 38387602 D 72.820 Tobacco de pendence syndrome 56675757 F17.200 Obstructiv e sleep apnea syndrome 56711680 G47.33 Vitamin D deficiency 347 66138 E55.9 Type 2 remy betes mellitus 19910362 E11.9 Chronic ob structive pulmonary disease 56719244 J44.9 Swelling o f bilateral lower limbs 682768495 M79.89 Primary er ectile dysfunction 638817314 N52.9 Body mass index 40+ - severely obese 963787874 Z68.43 [id number] Bessy Bishop MD [address] [place] [address] 01/14/2023 12:31:37 01/14/2023 12:53:45 Influenza vaccine needed 6632963356 106 Z23 [id number] Julio Linn MD [address] [place] [address] 07/05/2023 13:48:48 07/05/2023 14:32:43 Tobacco dependence syndrome 90707436 F17.200 Cerebral palsy 972983435 G80.9 Spondylolysis 053967987 M43.00 Degenerati on of lumbar intervertebral disc 99703084 M51.36 Vitamin D deficiency 347 76294 E55.9 Depressive disorder 3548 9007 F32.9 Hypertensive disorder 38 673159 I10 Type 2 remy betes mellitus 96020979 E11.9 Anxiety 52949853 F41.9 Essential hypertension 67012897 I10 Acid reflux 741412795 K2 1.9 Chronic ki dney disease 379957906 N18.9 Obstructiv e sleep apnea syndrome 93962812 G47.33 Body mass index 30+ - obesity 732364824 Z68.43 Chronic ob structive pulmonary disease 33974880 J44.9 Swelling o f bilateral lower limbs 373359994 M79.89 Primary er ectile dysfunction 144940872 N52.9 Body mass index 40+ - severely obese 857783020 Z68.42 [id number] Julio Linn MD [address] [place] [address] 08/02/2023 13:34:56 08/02/2023 14:46:03 Body mass index 30+ - obesity 369855145 Z68.43 Cerebral palsy 701310481 G80.9 Tobacco de pendence syndrome 65589147 F17.200 Type 2 remy betes mellitus 01683143 E11.9 Spondylolysis 708251003 M43.00 Obstructiv e sleep apnea syndrome 92387567 G47.33 Essential hypertension 87786015 I10 Depressive disorder 3548 9007 F32.9 Degenerati on of lumbar intervertebral disc 24755690 M51.36 Chronic ki dney disease 148066098 N18.9 Pain of ri ght ankle joint 5370596126 0741151 M25.279 [id number] Julio Linn MD [address] [place] [address] 09/04/2023 15:38:15 09/04/2023 16:05:05 Obstructive sleep apnea syndrome 24453569 G47.33 Body mass index 30+ - obesity 175158230 Z68.43 Body mass index 40+ - severely obese 711505509 Z68.42 [id number] Roosevelt Elias APRN [address] [place] [address] 10/31/2023 14:36:28 10/31/2023 15:31:06 Body mass index 40+ - severely obese 449749060 Z68.42 Morbid obesity 562463860 E66.01 Gout 09147075 M10.071 -start allopurino l-follow up in 2 weeks for uric acid level recheck and renal panel Swelling o f bilateral lower limbs 321745842 M79.89 -chronic-a t baseline [id number] Julio Linn MD [address] [place] [address] 01/08/2024 14:13:02 01/08/2024 15:09:30 Lumbar radiculopathy 925684943 M54.16 Morbid obesity 676515990 E66.01 Tobacco de pendence syndrome 27304994 F17.200 Body mass index 30+ - obesity 036411848 Z68.43 Spondylolysis 528081841 M43.00 Degenerati on of lumbar intervertebral disc 51864662 M51.369 Vitamin D deficiency 347 65158 E55.9 Type 2 remy betes mellitus 02701537 E11.9 Hypertensive disorder 38 190145 I10 Depressive disorder 3548 9007 F32.9 Acid reflux 688834515 K2 1.9 Chronic ki dney disease 577933010 N18.9 Obstructiv e sleep apnea syndrome 14918401 G47.33 Anxiety 37635113 F41.9 Essential hypertension 49482075 I10 Cerebral palsy 869655936 G80.9 Gout 09902956 M10.071 Chronic ob structive pulmonary disease 67772770 J44.9 Swelling o f bilateral lower limbs 073577323 M79.89 Primary er ectile dysfunction 205574400 N52.9 Body mass index 40+ - severely obese 489186902 Z68.42 [id number] Roosevelt Elias APRN [address] [place] [address] 11/11/2023 13:57:55 11/11/2023 15:21:23 Gout 28402826 M10.071 Body mass index 40+ - severely obese 438577161 Z68.42 Morbid obesity 010340521 E66.01 [id number] Roosevelt Elias APRN [address] [place] [address] 11/25/2023 13:41:36 11/25/2023 16:25:09 Gout 32209814 M10.071 - No improvemen t with corticoste roids- uric acid still elevated in ED 3 days ago; will recheck today;- increase allopurino l to 600 mg daily- short term dose of NSAIDs; will need to monitor renal function closely- rheumatolo gy referral for severe, difficult to treat gout- [id number] Julio Linn MD [address] [place] [address] 08/14/2024 10:41:29 08/14/2024 11:11:07 Obstructive sleep apnea syndrome 75276907 G47.33 Body mass index 30+ - obesity 735402693 Z68.43 Tobacco de pendence syndrome 54591536 F17.200 Body mass index 40+ - severely obese 819926869 Z68.42 Health Concerns Section Related Observation LastModified by Organization Detai ls LastModified Time None Recorded Concern Status LastModified by Organization Details LastModified Time None Recorded Advance Directives Directive N: Payers Insurance Date Sequence Insurance Name Policy Number Policy Blackburn Covered Member ID Blackburn Member ID Guarantor Name 08/20/2024 1 [place] (MEDICARE REPLACEMENT HMO) [id number] Rubio Ruiz [id number] Rubioponcho Ruiz 08/20/2024 2 [facility]AC[place] - [id number] Rubio Ruiz [id number] Rubioponcho Ruiz 04/10/2023 1 [place] - [place]MO) Rubio Ruiz [id number] Rubioponcho Ruiz 08/11/2024 [place]MEDICAID[place] LEE Ruiz [id number] Rubio Ruiz 04/10/2023 1 [employer] [place] [employer] [place] (MEDICAID RE[place]ACEMENT - HMO) LEE Ruiz [id number] Rubio Ruiz 04/10/2023 2 [place] Rubio Ruiz [id number] Rubioponcho Ruiz 08/05/2023 1 [place]MED[place]/AD VANTAGE - HMO) [id number] Rubio Ruiz [id number] Rubiogideon Ruiz Notes Date Note Type Note Provider Name and Address Organization Details Recorded Time 4 text/html Emergency Department Follow-Up RecordReported bypatient.Discharge InformationName of hospital/urgent care patient was seen: ([facility]); Patient presented to hospital/urgent care on or around: actual date 10/19-10/20; Patient presented to hospital for treatment of: (lower extermity edema and gout of right foot.); Treatment received by hospital/urgent care: (Mild diuresis and gout medication.); Patient's condition has: improved; Hospital records available at the time of this visit: Yes Collin is a 43-year-old male that presents to the office for an emergency room follow up.He was admitted on 10/19 and discharged on 10/20.He was admitted for lower extermity edema and gout flare up of right foot. He was admitted for mild diuresis and started on Uloric. His uric acid in the ER was 10.2.Edema has improved, he is currently on Furosemide 80 mg and hydrochlorothiazide 25 mg. Gout has resolved. He does not have a history of gout.His insurance did not cover uloric, hospital recommended getting started on allopurinol.He is also on Colchicine and is wants to know if he should stay on it and if it is safe for his kidneys.He is still having bilateral ankle pain. He has always has it just not this severe and constant. Roosevelt Hooksing, [employer] [address], [place], [address], [facility] - [facility] 12/01/2023 22:39:52 4 text/html Collin is a 43-year-old male that presents to the office for a follow up on gout.Started on allopurinol 100 mg tablet on 10/30. Here today for uric acid recheck and renal panel.He is currently having a gout flare up. Started on Saturday. He can barely walk.- Symptoms described as joint tenderness, edema in right foot- Aggravating factors: none- Alleviating factors: none- Negative ROS: No erythema, warmth, fever, joint nodules, neuropathy- Associated medical history: diabetes mellitus, CKD, heart disease, HTN, HLD, use of diuretics.- Associated social history: none Roosevelt Hooksing, [employer] [address], [place], [address], [facility] - [facility] 11/11/2023 15:06:28 4 text/html Collin is a 43-year-old male that presents to the office for a follow up on gout.Started on allopurinol 100 mg tablet on 10/30 following hospitalization for gout and bilateral lower extremity edema. Was seen on 11/10 for increased swelling and pain in his right foot at which time his uric acid level was 10.2. His allopurinol was increased to 300 mg daily and he was instructed to take a medrol dose pack that he had at home but had not started yet. Today he reports he went to the ER on 11/22 due to not being able to walk. Uric acid in the ER was 7.8. Patient states that they were going to transfer him to or to see a filter filler but there was no beds available. They gave him a dose of Colchicine in the ER and sent him home with pain medication. We do not have ER records. ER recommended having his PCP put in a STAT filter filler referral. Roosevelt Hooksing, [employer] [address], [place], [address], [facility] 11/25/2023 14:25:50 4 text/html Here for checkup, labs, refills. Says BS controlled. Had eye exam within one year and had foot exam in Nov 2023 in ER at [facility]. Also has GERTRUDE and uses CPAP daily with great benefit. Julio Linn MD [address], [place], [address], [facility] - [facility] 01/23/2024 14:18:04 5 text/html Here for new CPAP machine. Had positive home sleep study summer 2023. [facility] did not accept his ins so need a new order. Uses CPAP nightly and benefits greatly. Julio Linn MD [address], [place], [address], [place] - [facility] 08/14/2024 11:12:35
--- OUTSIDE RECORDS SUMMARY | 2024-09-16 10:15 | XMS_ITS | Clinical Summary ---
Author Organization [facility] Address [address] 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 Active Blood Glucose Monitoring Suppl (Accu-Chek Guide Me) w/Device kit USE DIRECTED 4 Active furosemide (Lasix) 80 MG tablet Take 1 tablet (80 mg) by mouth daily. 4 Active gabapentin (Neurontin) 600 MG tablet TAKE 1 TABLET BY MOUTH THREE TIMES DAILY FOR PAIN 4 Active glipiZIDE (Glucotrol) 10 MG tablet Take 1 tablet (10 mg) by mouth 2 (two) times a day. 4 Active Accu-Chek Guide test strip USE DIRECTED TO CHECK BLOOD SUGAR FOUR TIMES DAILY NEEDED 4 Active hydroCHLOROthi azide (HYDRODiuril) 25 MG tablet 4 Active HYDROcodone-ac etaminophen ([place]) 7.5-325 MG tablet Take 1 tablet (7.5 mg of hydrocodone) by mouth 3 (three) times a day as needed. 4 Active Accu-Chek Softclix Lancets lancets USE DIRECTED TO CHECK BLOOD SUGAR FOUR TIMES DAILY NEEDED 4 Active losartan (Cozaar) 100 MG tablet 4 Active metFORMIN (Glucophage) 500 MG tablet Take 1 tablet (500 mg) by mouth 2 (two) times a day. 4 Active metoprolol succinate XL (Toprol-XL) 100 MG 24 hr tablet Take 1 tablet (100 mg) by mouth every morning. Active omeprazole (PriLOSEC) [address] capsule Take 1 capsule (20 mg) by mouth every morning. Active potassium chloride CR (Klor-Con) 10 MEQ ER tablet Take 1 tablet (10 mEq) by mouth daily. 4 Active Ozempic, 0.25 or 0.5 MG/DOSE, 2 MG/3ML solution pen-injector INJECT 0.5MG UNDER SKIN ONE DAY A WEEK 4 Active sildenafil (Viagra) 100 MG tablet Take 0.5 tablets (50 mg) by mouth daily. 4 Active tiZANidine (Zanaflex) 4 MG tablet Take 1 tablet (4 mg) by mouth 3 (three) times a day as needed for muscle spasms. Active amantadine (Symmetrel) 100 MG tablet Active baclofen (Lioresal) 10 MG tablet Take 1 tablet (10 mg) by mouth 3 (three) times a day as needed. 4 Active canakinumab (Ilaris) 150 MG/ML injection Inject 150 mg every 3 months by sub-q route for 84 days. Active methocarbamol (Robaxin) 500 MG tablet Take 1 tablet (500 mg) by mouth 3 (three) times a day as needed. 4 Active Ozempic, 2 MG/DOSE, 8 MG/3ML solution pen-injector INJECT 2MG SUBCUTANEOUS EVERY WEEK 5 Active febuxostat (Uloric) 40 MG tabletIndicati ons:Idiopathic gout, right ankle and foot,Gout,High risk medication use Take 1 tablet by mouth daily. 90 tablet 5 Active febuxostat (Uloric) 40 MG tabletIndicati ons:Idiopathic gout, right ankle and foot,Gout,High risk medication use Take 1 tablet (40 mg) by mouth daily. 90 tablet 1 5 025 Discontin ued(Reord er) Active Problems Problem Noted Date Diagnosed Date Gout 12/12/2023 Encounters Date Type Department Care Team Description 09/15/2024 Telephone [facility] Medicine Specialties 0 [facility], [facility] [place] [address] Piotr Wick, PharmD 06/24/2024 Orders Only [facility] Medicine Specialties 0 [facility], [address] [place] [phone] Provider, MD José 06/17/2024 Telephone [facility] Medicine Specialties 0 [facility], [address] [place] [phone] Kierra Monteiro RN from Last 3 Months Immunizations Immunization Administration Dates Next Due Influenza, injectable, quadrivalent 01/14/2023,1 04/30/2021,02/25/2019 Influenza, injectable, quadr ivalent, preservative free 01/10/2021,01/18/2020 Influenza, seasonal, injectable 01/08/2024 Pneumococcal Polysaccharide PPV23 05/09/2021 TD (adult), 2 Lf tetanus tox oid, preservative free, adsorbed 09/08/2019 Family History Medical History Relation Name Comments Diabetes Brother Robert Ruiz Obesity Brother Robert Ruiz Diabetes Maternal Grandfather Julio Berg Obesity Maternal Grandfather Julio Berg Stroke Maternal Grandfather Julio Berg Cancer Maternal Grandmother amy galvezpherd Diabetes Mother gilbert Berg Kidney disease Mother gilbert Berg Obesity Mother gilbert Berg Relation Name Status Comments Brother Robert Ruiz Maternal Grandfather Julio Berg Maternal Grandmother amy galvezpherd Mother gilbert Berg Social History Tobacco Use Types Packs/Day Years Used Date Smoking Tobacco: Every Day Cigarettes 0.5 4 Started: 09/20/2020 Passive Smoke Exposure: Current Smokeless Tobacco: Never Tobacco Cessation:Ready to Q uit: Not Asked; Counseling Given: Not Answered Alcohol Use Standard Drinks/Week Comments Yes 0 [...] Orientation Straight 12/11/2023 2: 26 PM EDT Last Filed Vital Signs Vital Sign Reading Time Taken Comments Blood Pressure 124/66 03/12/2024 3:15 PM EST Pulse 100 03/12/2024 3:15 PM EST Temperature 36.4 C (97.6 F) 03/12/2024 3:15 PM EST Respiratory Rate 16 03/12/2024 3:15 PM EST Oxygen Saturation 95% 03/12/2024 3:15 PM EST Inhaled Oxygen Concentration - - Weight 136 kg (300 lb) 06/12/2024 1:31 PM EST Height 167.6 cm (5' 6 ) 06/12/2024 1:31 PM EST Body Mass Index 48.42 06/12/2024 1:31 PM EST Plan of Treatment Upcoming Encounters Date Type Department Care Team (Late st Contact Info) Description 12/15/2024 2:20 PM EDT Office Visit [facility] Medicine Specialties [address] [place] [phone] Nany Beard, PLATING TECHNICIAN [address] [place] [address] Health Maintenance Due Date Last Done Comments [facility]-HIV Screening 1978 [facility]-Medicare Annual Wellness (AWV) 1978 [facility]-/Child/Adol SDOH Screenings 1978 [id number] Vaccine (#1) 1983 [facility]- SDOH Screenings 1996 [facility]-Adult SDOH Screenings 1996 [facility]-Hepatitis B Vaccines (1 of 3 - 19+ 3-dose series) 1997 [facility]-DTaP,Tdap,and Td Vaccines (1 - Tdap) 09/09/2019 09/08/2019 [facility]-Pneumococcal Vaccine: Pediatrics (0 to 5 Years) and At-Risk Patients (6 to 49 Years) (2 of 2 - PCV) 05/09/2022 05/09/2021 CT Colonography 2023 Colonoscopy 2023 FIT-DNA 2023 FIT 2023 FOBT 2023 Sigmoidoscopy 2023 [facility]-Colorectal Cancer Screening 2023 [facility]-Depression Screening 06/12/2025 06/12/2024, 08/2023 [facility]-Zoster Vaccines (1 of 2) 2028 [facility]-Hepatitis C Screening Completed 12/12/2023 [facility]-Influenza Vaccine Completed 01/08/2024 , 01/14/2023, 02/28/2022, Additional history exists [facility]-Obesity Intervention Completed 025, 03/12/2024, 12/12/2023 HPV Vaccines Aged Out No longer eligi ble based on patient's age to complete this topic [facility]-HIB Vaccines Aged Out No longer e ligible based on patient's age to complete this topic [facility]-Hepatitis A Vaccines Aged Out No longer eligible based on patient's age to complete this topic [facility]-IPV Vaccines Aged Out No longer e ligible based on patient's age to complete this topic [facility]-Rotavirus Vaccines Aged Out No lo nger eligible based on patient's age to complete this topic Procedures Procedure Name Priority Date/Time Associated Diagnosis Comments CREATININE, PLASMA Routine 06/24/2024 11 :51 AM EDT URIC ACID, PLASMA Routine 06/24/2024 11: 51 AM EDT HEPATIC FUNCTION PANEL Routine 06/24/2024 11:51 AM EDT CBC WITH AUTO DIFFERENTIAL Routine 06/24/2024 11:51 AM EDT ACUTE HEPATITIS PANEL Routine 12/12/2023 12:55 PM EDT Idiopathic gout, right ankle and foot Gout High risk medication use from Last 3 Months or Most Recently Relevant to Health Maintenance Results * Creatinine, Plasma (06/24/2024 11:51 AM EDT) Blood Venous blood specimen / Unknown Result [facility] Historical Provider MD LAB BLOOD ORDERABLES Mariela l Result * CBC and Differential (06/24/2024 11:51 AM EDT) Blood Venous blood specimen / Unknown Result [facility] Provider MD LAB BLOOD ORDERABLES Mariela l Result * Uric Acid, Plasma (06/24/2024 11:51 AM EDT) Blood Venous blood specimen / Unknown Result [facility] Provider MD LAB BLOOD ORDERABLES Mariela l Result * Hepatic Function Panel (06/24/2024 11:51 AM EDT) Blood Venous blood specimen / Unknown Result [facility] Provider LAB BLOOD ORDERABLES Mariela l Result * Acute Hepatitis Panel (12/12/2023 12:55 PM EDT) Pathologist [facility] Hepatitis B Surf Antigen Negative Negative 12/12/2023 3:13 PM EDT [facility] Hepatitis C Antibody Negative Negative 12/12/2023 3:13 PM EDT [facility] Hepatitis A Antibody IgM Negative Negative 12/12/2023 3:13 PM EDT [facility] Hepatitis B Core Antibody IgM Negative Negative 12/12/2023 3:13 PM EDT [facility] Blood Venous blood specimen / Unknown Venipuncture / Unknown 12/12/2023 12:55 PM EDT 12/12/2023 12:55 PM EDT Result [facility] Nany Beard APRN LAB BLOOD ORDERABLES Final Result [facility] [address] [place] [address] from Last 3 Months or Most Recently Relevant to Health Maintenance Insurance [facility] MEDICAID [facility] MEDICARE Care Teams 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
--- NOTE | 2024-09-16 10:40 | EXP.PAIN.SOA ---
[facility] Disclaimer: The information contained in this section may have been updated after the patient was seen, as this information can be updated by other users. Medical History (Updated 08/28/24 @ 15:09 by Mirian Cody APRN) Lumbar back pain Lumbar and sacral arthritis Surgical History No significant past surgical history Family History Other No significant family history Social History Smoking Status: Current every day smoker (1/2 ppd) tobacco type: cigarettes packs per day: 1 alcohol intake: never substance use type: denies use current occupational status: disabled and other Travel in the last 8 weeks?: None number of children: 1 Have you lived/traveled outside US in past 30 days?: No Contact w/someone who lives/traveled outside US past 30 days?: No Exposure to someone with infectious disease in past 14 days?: No Do you have a fever (greater than 100.4 F or 38 C)?: No Have you tested positive for COVID-19?: No Exposed to someone with COVID-19 in past 14 days?: No Do you have a sore throat?: No Do you have a cough?: No Do you have any weakness?: No Do you have any diarrhea?: No Are you experiencing any unusual bleeding?: No Do you have any muscle aches/pain?: No Do you have any abdominal pain?: No Are you experiencing loss of taste or smell?: No PM Subjective & Objective Subjective Subjective:: Patient is a pleasant 44-year-old male who presents today for follow-up of his psychological evaluation. Today he rates his pain a 3 out of 10 however does state that it is just a few days ago it was a 10 out of 10. He denies any specific trauma or injury that started the pain that time. He states that it was just very severe and he did end up having to take some muscle relaxers to ease it down. Patient does state that the pain will get worse with increased activity and is all still there and he is back with some symptoms into his upper legs. Patient does state that he did review over the material of the pump for the stimulator and he would like to proceed forward with the pump. Patient has had updated x-ray and MRI at [facility]. Patient has continued conservative therapy with no additional changes. His Rogelio has been reviewed and is appropriate. Patient is prescribed gabapentin, diazepam, tizanidine and Robaxin from an outside provider and compounded cream from our office. Review of Systems: General: No recent weight changes, no fever, no sleep disturbances Respiratory: No cough, no shortness of air, no recurring pulmonary infections Cardiovascular/peripheral vascular: No chest pain, no palpitations, no edema, no shortness of breath Gastrointestinal: No new onset incontinence, normal bowel movements reported Genitourinary: No new onset incontinence Musculoskeletal: Chronic back pain Psychiatric: [Normal mood/affect] Neurological: [Denies weakness in extremities], [denies balance issues] Pain at rest (0-10 scale): 5 Objective Objective:: Physical Exam: General: Alert and oriented x3, no acute distress, pleasant and cooperative Lungs: Respirations even and unlabored, symmetrical chest expansion Eyes: PERRL Musculoskeletal: Flexion and extension of lumbar [spine] somewhat guarded secondary to pain, [antalgic gait noted] Neurological: Speech clear, no gross sensory deficit Has patient had previous pain injection?: No Conservative treatment options previously tried: Home exercise plan Length of treatment: Longer than 12 weeks Meds Home Medications and Allergies Home Medications ?Medication ?Instructions ?Recorded ?Confirmed ?Type gabapentin 600 mg tablet 600 mg PO TID 03/09/24 06/15/24 History hydrocodone 5 mg-acetaminophen 325 1 tab PO NEEDED PRN Pain 03/09/24 06/15/24 History mg tablet tizanidine 4 mg tablet 4 mg PO TID PRN Pain 03/09/24 06/15/24 History New Prescriptions to Start Prescriptions: Allergies Allergy/AdvReac Type Severity Reaction Status Date / Time No Known Allergies Allergy Verified 03/09/24 15:33 Assessment and Plan *Assessment and plan (1) Lumbar spinal stenosis: Status: Acute Category: Medical Code(s): M48.061 - Spinal stenosis, lumbar region without neurogenic claudication (2) Lumbar stenosis with neurogenic claudication: Status: Acute Category: Medical Code(s): M48.062 - Spinal stenosis, lumbar region with neurogenic claudication (3) Chronic pain syndrome: Status: Acute Category: Medical Code(s): G89.4 - Chronic pain syndrome (4) Lumbar facet arthropathy: Status: Acute Category: Medical Code(s): M47.816 - Spondylosis without myelopathy or radiculopathy, lumbar region (5) Lumbar radiculopathy: Status: Acute Category: Medical Code(s): M54.16 - Radiculopathy, lumbar region (6) Degenerative disc disease, lumbar: Status: Acute Category: Medical Code(s): M51.369 - Other intervertebral disc degeneration, lumbar region without mention of lumbar back pain or lower extremity pain Plan I did review with the patient regarding his psychological evaluation findings and he was deemed an appropriate candidate for the intrathecal pain pump trial. Risk and benefits of this procedure were explained to the patient and he would like to proceed forward with this plan of care. I did also discuss with the patient that we will also send him for evaluation by neurosurgery if Dr. Cerna fits. Patient agrees with this plan of care. If he does have significant improvement following the pump trial we will proceed forward with the pump implant at a later date. Patient has tried and failed conservative therapy including oral medication, heat and ice, topicals, injection therapy, physical therapy and continued at home stretching exercise for longer than 12 weeks. Patient has had chronic pain for longer than 6 months. We will submit to insurance for the intrathecal pain pump trial under fluoroscopy. 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 Patient has been instructed to contact the clinic with any concerns before the next appointment. Dr. Melton has reviewed this note and agrees with this plan of care. This note was dictated using voice recognition software and make contain errors or omissions. All injections are used with Lidocaine, Bupivacaine and dexamethasone. Occasionally urine drug screen is needed to verify patient's compliance with our office pain contract. This is ordered based off specific treatments related to chronic pain with the potential to abuse certain medications.
[2024-09-16 13:06] VITALS: BP 115/78; PULSE 90; RESP 14; O2SAT 98; BMI 46.7
== END 2024-09-16 23:59 | disposition home or self-care (01) ==
LOC: SC.PAIN 10:11
PROVIDERS: PCP Family Medicine; Visit Provider Nurse Practitioner Family
DX: M51.16 Intervertebral disc disorders with radiculopathy, lumbar region (principal); M48.062 Spinal stenosis, lumbar region with neurogenic claudication; G89.4 Chronic pain syndrome; Z79.899 Other long term (current) drug therapy
CPT/HCPCS: 99212; G0463

== ENCOUNTER 2024-11-02 09:23 | Outpatient (POV) | payer MEDICARE, OTHER, SELFPAY ==
--- OUTSIDE RECORDS SUMMARY | 2014-09-16 13:20 | XMS_ITS | Continuity of Care Document ---
Author Organization [facility] Address [address] [place] [address] Phone Care Team Providers Care Medical Education Specialist Name Role Phone Delia De La Torre CNP Unavailable Unavailabl e Allergies, Adverse Reactions, Alerts Substance Reaction Status Criticality hydrochlorothiazide Active No Infor mation triamterene Active No Information RIZATRIPTAN BENZOATE Active No Info rmation Medications Medication Instructions Dosage Effective Dates (start - stop) Status Comments Lasix 20 mg tablet take 2 Tablet by oral route every day 40 MG - Active atenolol 100 mg tablet take 1 tablet by oral route every day 100 MG - Active amlodipine 10 mg tablet take 1 tablet by oral route every day 10 MG - Active nitroglycerin 0.[address] 1 tablet by sublingual route at the 1st sign of attack; may repeat every 5 min until relief; if pain persists after 3 tablets in 15 min, prompt medical attention is recommended 0.4 MG - Active Aspir-81 81 mg tablet,delayed release take 1 tablet by oral route every day - Active ibuprofen 600 mg tablet take 1 tablet by oral route 3 times every day with food 600 MG - Active Acute L knee pain albuterol sulfate HFA 90 mcg/actuation Aerosol Inhaler inhale 1 - 2 puff by inhalation route every 4 - 6 hours as needed 1-2 puff - Active Vicodin 5 mg-500 mg Tab take 1 tablet by oral route 2 times every day as needed for pain - Active Advance Directives Directive Yes / No Effective Date File Name No Information Encounters Encounter Description Practice Location Reason(s) For Visit Diagnoses Date Provider [facility] [address], [facility], tel:[phone] [facility] No Information 5 Wil Lin. [facility] [place], [place], [facility], . tel:[phone] [facility] [employer] Of [address], [facility], tel:[phone] [facility] Follow Up of Hypertension (follow up) (chief complaint) Hypertension, BenignObesity, MorbidChest pain Jun-0 5 Wil Lin. [facility] [place], [place], [facility], [place]. tel:[phone] [facility] [employer] [address], [facility], tel:[phone] [facility] Hypertension (follow up) (chief complaint) Hypertension, BenignObesity, Morbid Dec-0 4 Wil Lin. [facility] [place], [place], [facility], [place]. tel:[phone] [facility] [employer] [address], [facility], tel:[phone] [facility] hypertension (chief complaint)knee pain (chief complaint) Hypertension, BenignObesity, MorbidPain in joint involving lower leg 4 Wil Lin. [facility] [place], [place], [facility], [place]. tel:[phone] [facility] [employer] [address], [facility], tel:[phone] [facility] BP check (chief complaint) No Information 4 Wil Lin. [facility] [place], [place], [facility], [place]. tel:[phone] [facility] [employer] [address], [facility], tel:[phone] [facility] BP check (chief complaint) Hypertension, Benign Alfredo-0 6-201 4 Treffinger Delia. [facility] [place], [place], [facility], . tel:[phone] [facility] [employer] [facility], [address] [place] [address], [facility], tel:[phone] [facility] BP check (chief complaint) Hypertension, Benign Alfredo-0 3-201 4 Treffinger Delia. [address] [place], [place], [facility], [place]. tel:[phone] [facility] [employer] Of [address], [facility], tel:[phone] [facility] hypertension (follow up) (chief complaint) Hypertension, Benign May-2 8-201 4 Treffinger Delia. [facility] [place], [place], [facility], [place]. tel:[phone] [facility] [employer] [facility] [address], [facility], tel:[phone] [facility] BP check (chief complaint) Hypertension, Benign May-2 3-201 4 Treffinger Delia. [facility] [place], [place], [facility], . tel:[phone] [facility] [employer] Of [address], [facility], tel:[phone] [facility] BP check (chief complaint) Hypertension, Benign May-1 6-201 4 Treffinger Delia. [facility] [place], [place], [facility], [place]. tel:[phone] [facility] [employer] [facility] [address], [facility], tel:[phone] [facility] BP check (chief complaint) Hypertension, Benign May-0 2-201 4 Treffinger Delia. [facility] [place], [place], [facility], [place]. tel:[phone] [facility], [facility] [employer] Of [address], [facility], tel:[phone] [facility] preventive exam (chief complaint) Hypertension, BenignObesity, Morbid 8 4 Wil Lin. [address] [place], [place], [facility], . tel:[phone] [facility], [facility] [employer] Of [address], [facility], tel:[phone] [facility] asthma (chief complaint)hypert ension (follow up) (chief complaint) Hypertension, BenignAsthmaSleep Apnea, Obstructive 2 No Information [facility] [employer] Of [address], [facility], tel:[phone] [facility] musculoskeletal pain (chief complaint)back pain (chief complaint) SciaticaPain in joint involving lower legSleep Apnea, Obstructive 0 2 No Information [facility], [facility] [employer] Of [address], [facility], tel:[phone] [facility] No Information 2 No Information [facility] [employer] Of [address], [facility], tel:[phone] [facility] No Information 0 1 No Information [facility], [facility] [employer] Of [address], [facility], tel:[phone] [facility] No Information 1 No Information Family History Family Member Type Diagnosis Age At Onset grandfather Problem (finding) stroke Mother Problem (finding) Diabetes mellitus Maternal grandfather Problem (finding) hypertension Maternal grandmother Problem (finding) Leukemia grandfather Problem (finding) asthma Payers Payer name Insurance type Covered libertarian ID Authoriza tion(s) Medicare [facility] [id number] Medicaid [employer] [id number] Social History Type Description Quantity Date Captured Comments Sex Male Smoking Status No Information Chief Complaint And Reason For Visit No Information Plan Of Treatment Date Type Action Status Goal Depression screening. Due on due Goal Lipid Panel. Due on 015 due Goal Td vaccine. Due on 15 due Goal Tdap. Due on due Goal Abdominal Ultrasound. Due on due Goal Diabetes Screening. Due on M due Goal Depression screening. Due on due Goal Lipid Panel. Due on 014 due Goal Tdap. Due on due Goal Td vaccine. Due on 14 due Goal Abdominal Ultrasound. Due on due Goal Diabetes Screening. Due on due Goal Td vaccine. Due on 14 due Goal Tdap. Due on due Goal Diabetes Screening. Due on A due Referral Ordered: Treadmill Stress Test ordered Referral Ordered: X-RAY EXAM OF ANKLE Right ordered Referral Ordered: Referral: Pain Management. Evaluate and treat. ordered Referral Referred To: Physical Therapy Ordered: Referral: Physical Therapy. ordered History Of Present Illness Encounter Date Complaint History Of Prese nt Illness Follow Up of Audrey kinsey (follow up) (comments) BP is controlled today and he has lost some weight. COntinue to work on weight loss. Limit sodium in diet. Follow Up of Audrey kinsey (follow up) Pt states meds were taken at 9:30am today. Pt has lost 12 lbs. since last OV 03/2014. Hypertension (follow up) Hypertension (follow up) (commen ts) BP is well controlled. Patient is here for BP med refills. Denies other questions or concerns. Takes medications as directed. Instructions Date Instruction Additional Infor gilma Has occurred a few t imes in a few months, lasting a few minutes to once all night. He tried some of his wifes nitroglycerin and it helped. Discussed with patient that if this recurs go to ER immediately to be assessed. Start daily ASA. Nitroglycerin as needed. Ordered stress ECG. Related to Chest pain Lost 12 pounds. Keep up the good work. Strong family history of diabetes, patient with prior A1C of 5.9. Recheck A1C today and discussed with patient starting metformin if it remains elevated. Continue to work on weight loss. Related to Obesity, Morbid Continue current samy n of care. Check labs due to lasix. Related to Hypertension, Benign Work on diet and exercise. Relat ed to Obesity, Morbid Continue current poc. F/U in 3 m os. Related to Hypertension, Benign Treatment goal: BP u nder 140/90 by next visit Related to Hypertension, Benign DASH Diet discussed Related to H ypertension, Benign Weight loss recommended Related to Hypertension, Benign Exercise plan discussed Related to Hypertension, Benign Recommended pt keep food diary and bring to appts Related to Obesity, Morbid Discussed diet plan Related to O besity, Morbid Treatment goal: BP under 140/90 Related to Hypertension, Benign Check BP at home, br ing log to visits to review Related to Hypertension, Benign Treatment goal: BP under 140/90 Related to Hypertension, Benign Treatment goal: BP under 140/90 Related to Hypertension, Benign Recommended pt keep food diary and bring to appts Related to Obesity, Morbid Discussed diet plan Related to O besity, Morbid Assessments Type Assessment Date No Information
--- OUTSIDE RECORDS SUMMARY | 2024-11-02 09:37 | XMS_ITS | Data Portability ---
[facility] [address] [place] [address] Care Team Providers Care Pot Puller Name Role Phone AISHA MOON Primary Care Provider Unavailabl e Assessment No assessment recorded. Plan of Treatment Reminders Order Date Submit Date Provider Last Modified By Organization Details Last Modified Time Details Appointments None recorded. Lab microalbum in/creatin ine, mass ratio, urine 2017 018 TIFFANY [facility], [address], [place], [place], [address], 8 18:36:45 drug screen, urine 2017 018 TIFFANY [facility], [address], [place], [place], [address], 8 18:36:44 BMP, serum or plasma 2016 017 TIFFANY [facility], [address], [place], [place], [address], 7 12:36:55 CBC w/ auto diff 2016 017 TIFFANY [facility], [address], [place], [place], [address], 7 10:37:13 TSH, ultra-sens itive, serum 2016 017 TIFFANY [facility], [address], [place], [place], [address], 7 10:37:16 CMP, serum or plasma 2016 017 TIFFANY [facility], [address], [place] [address], [place], [address], 7 10:37:14 lipid panel, serum 2016 017 TIFFANY [facility], [address], [place] [address], [place], [address], 7 10:37:15 Referral neurosurge ry referral 2017 018 [email or web address] Not available 8 14:17:56 sleep study referral 2016 017 [facility] (Central Scheduling), [address] [place] [address], [address], 8 20:37:05 Procedures None recorded. Surgeries None recorded. Imaging nerve conduction study 2016 017 [email or web address] [facility] (Central Scheduling), [address] [place] [address], [address], 7 15:39:39 XR, cervical spine 2016 017 [email or web address] Not available 7 15:40:06 Medication Orders losartan 50 mg-hydroch lorothiazi de 12.5 mg tablet 2017 018 INTERFACE [facility], [address] [place], [address], 8 15:55:40 metoprolol succinate ER 100 mg tablet,ext ended release 24 hr 2017 018 INTERFACE [facility], [address] [place], [address], 8 15:55:40 amlodipine 10 mg tablet 2017 018 INTERFACE [facility], [address] [place], [address], 8 15:55:42 gabapentin 400 mg capsule 2017 018 INTERFACE [facility], [address] [place], [address], 8 12:32:12 Zanaflex 4 mg tablet 2017 018 INTERFACE [facility], [address] [place], [address], 8 12:32:13 Cymbalta 60 mg capsule,de layed release 2017 018 INTERFACE [facility], [address] [place], [address], 8 15:55:42 losartan 50 mg-hydroch lorothiazi de 12.5 mg tablet 2016 017 INTERFACE [facility], [address] [place], [address], 7 14:00:48 metoprolol succinate ER 100 mg tablet,ext ended release 24 hr 2016 017 INTERFACE [facility], [address] [place], [address], 7 13:59:52 amlodipine 10 mg tablet 2016 017 INTERFACE [facility], [address] [place], [address], 7 13:59:53 Cymbalta 60 mg capsule,de layed release 2016 017 INTERFACE [facility], [address], [place], [address], 7 13:59:52 omeprazole 40 mg capsule,de layed release 2016 017 INTERFACE [facility], [address], [place], [address], 7 14:26:37 amlodipine 10 mg tablet 2016 017 INTERFACE [facility], [address], [place], [address], 7 14:26:38 losartan 50 mg-hydroch lorothiazi de 12.5 mg tablet 2016 017 INTERFACE [facility], [address], [place], [address], 7 14:26:40 metoprolol succinate ER 100 mg tablet,ext ended release 24 hr 2016 017 INTERFACE [facility], [address], [place], [address], 7 14:26:39 Cymbalta 60 mg capsule,de layed release 2016 017 INTERFACE [facility], [address], [place], [address], 7 14:26:39 Patient TargetsNo targets recorded. Patient [...] x10e3 /uL 3.4-10 .8 Not Available [facility] ([facility]) [address] [facility], [place], [address], 01/03/2017 10:37:13 01/03/20 17 01/03/2017 CBC w/ auto diff RBC 5.31 x10e6 /uL 4.14-5 .80 Not Available [facility] ([facility]) [address] [place], [address], 01/03/2017 10:37:13 01/03/20 17 01/03/2017 CBC w/ auto diff hemoglobin 16.2 g/dL 12.6-1 7.7 Not Available [facility] ([facility]) [address] [place], [address], 01/03/2017 10:37:13 01/03/20 17 01/03/2017 CBC w/ auto diff hematocrit 48.4 % 37.5-5 1.0 Not Available [facility] ([facility]) [address] [place], [address], 01/03/2017 10:37:13 01/03/20 17 01/03/2017 CBC w/ auto diff MCV 91 fL 79-97 Not Available [facility] ([facility]) [address] [place], [address], 01/03/2017 10:37:13 01/03/20 17 01/03/2017 CBC w/ auto diff MCH 30.5 pg 26.6-3 3.0 Not Available [facility] ([facility]) [address] [place], [address], 01/03/2017 10:37:13 01/03/20 17 01/03/2017 CBC w/ auto diff MCHC 33.5 g/dL 31.5-3 5.7 Not Available [facility] ([facility]) [address] [place], [address], 01/03/2017 10:37:13 01/03/20 17 01/03/2017 CBC w/ auto diff RDW 14.1 % 12.3-1 5.4 Not Available [facility] ([facility]) [address] [place], [address], 01/03/2017 10:37:13 01/03/20 17 01/03/2017 CBC w/ auto diff platelets 356 x10e3 /uL 150-37 9 Not Available [facility] ([facility]) [address] [place], [address], 01/03/2017 10:37:13 01/03/20 17 01/03/2017 CBC w/ auto diff neutrophils 54 % Not Available [facility] ([facility]) [address] [place], [address], 01/03/2017 10:37:13 01/03/20 17 01/03/2017 CBC w/ auto diff lymphs 33 % Not Available [facility] ([facility]) [place], [address], 01/03/2017 10:37:13 01/03/20 17 01/03/2017 CBC w/ auto diff monocytes 9 % Not Available [facility] ([facility]) [address] [place] [address], [address], 01/03/2017 10:37:13 01/03/20 17 01/03/2017 CBC w/ auto diff eos 3 % Not Available [facility] ([facility]) [address] [place] [address], [address], 01/03/2017 10:37:13 01/03/20 17 01/03/2017 CBC w/ auto diff basos 1 % Not Available [facility] ([facility]) [place], [address], 01/03/2017 10:37:13 01/03/20 17 01/03/2017 CBC w/ auto diff immature cells MANAGER GAME Not Available [facility] ([facility]) [address] [place] [address], [address], 01/03/2017 10:37:13 01/03/20 17 01/03/2017 CBC w/ auto diff neutrophils (absolute) 5.2 x10e3 /uL 1.4-7. 0 Not Available [facility] ([facility]) [address] [facility], [place], [address], 01/03/2017 10:37:13 01/03/20 17 01/03/2017 CBC w/ auto diff lymphs (absolute) 3.1 x10e3 /uL 0.7-3. 1 Not Available [facility] ([facility]) [address] [facility], [place], [address], 01/03/2017 10:37:13 01/03/20 17 01/03/2017 CBC w/ auto diff monocytes(ab solute) 0.9 x10e3 /uL 0.1-0. 9 Not Available [facility] ([facility]) [address] [facility], [place], [address], 01/03/2017 10:37:13 01/03/20 17 01/03/2017 CBC w/ auto diff eos (absolute) 0.3 x10e3 /uL 0.0-0. 4 Not Available [facility] ([facility]) [address] [facility], [place], [address], 01/03/2017 10:37:13 01/03/20 17 01/03/2017 CBC w/ auto diff baso (absolute) 0.1 x10e3 /uL 0.0-0. 2 Not Available [facility] ([facility]) [address] [facility], [place], [address], 01/03/2017 10:37:13 01/03/20 17 01/03/2017 CBC w/ auto diff immature granulocytes 0 % Not Available [facility] ([facility]) [address] [place], [address], 01/03/2017 10:37:13 01/03/20 17 01/03/2017 CBC w/ auto diff immature grans (abs) 0.0 x10e3 /uL 0.0-0. 1 Not Available [facility] ([facility]) [address] [place], [address], 01/03/2017 10:37:13 01/03/20 17 01/03/2017 CBC w/ auto diff NRBC MANAGER GAME Not Available [facility] ([facility]) [address] [place] [place], [address], 01/03/2017 10:37:13 01/03/20 17 01/03/2017 CBC w/ auto diff hematology comments: Note: Verif ied by rossy pina nFlor Not Available [facility] ([facility]) [address] [place] [place], [address], 01/03/2017 10:37:13 01/03/20 17 01/03/2017 CMP, serum or plasm a glucose, serum 91 mg/dL 65-99 Not Available [facility] ([facility]) [address] [place] [place], [address], 01/03/2017 10:37:14 01/03/20 17 01/03/2017 CMP, serum or plasm a BUN 13 mg/dL 6-20 Not Available [facility] ([facility]) [address] [place] [place], [address], 01/03/2017 10:37:14 01/03/20 17 01/03/2017 CMP, serum or plasm a creatinine, serum 1.39 mg/dL 0.76-1 .27 above high normal Not Available [facility] ([facility]) [address] [place] [place], [address], 01/03/2017 10:37:14 01/03/20 17 01/03/2017 CMP, serum or plasm a eGFR if nonafricn AM 64 mL/mi n/1.7 3 >59 Not Available [facility] ([facility]) [address] [place] [place], [address], 01/03/2017 10:37:14 01/03/20 17 01/03/2017 CMP, serum or plasm a eGFR if africn AM 74 mL/mi n/1.7 3 >59 Not Available [facility] ([facility]) [address] [facility], [address], 01/03/2017 10:37:14 01/03/20 17 01/03/2017 CMP, serum or plasm a BUN/creatini ne ratio 9 9-20 Not Available [facility] ([facility]) [address] [facility], [address], 01/03/2017 10:37:14 01/03/20 17 01/03/2017 CMP, serum or plasm a sodium, serum 140 mmol/ L 134-14 4 Not Available [facility] ([facility]) [address] [place] [place], [address], 01/03/2017 10:37:14 01/03/20 17 01/03/2017 CMP, serum or plasm a potassium, serum 4.4 mmol/ L 3.5-5. 2 Not Available [facility] ([facility]) [address] [facility], [place], [address], 01/03/2017 10:37:14 01/03/20 17 01/03/2017 CMP, serum or plasm a chloride, serum 94 mmol/ L 96-106 below low normal Not Available [facility] ([facility]) [address] [facility], [place], [address], 01/03/2017 10:37:14 01/03/20 17 01/03/2017 CMP, serum or plasm a calcium, serum 9.5 mg/dL 8.7-10 .2 Not Available [facility] ([facility]) [address] [place] [place], [address], 01/03/2017 10:37:14 01/03/20 17 01/03/2017 CMP, serum or plasm a protein, total, serum 7.6 g/dL 6.0-8. 5 Not Available [facility] ([facility]) [address] [place] [place], [address], 01/03/2017 10:37:14 01/03/20 17 01/03/2017 CMP, serum or plasm a albumin, serum 4.3 g/dL 3.5-5. 5 Not Available [facility] ([facility]) [address] [place], [address], 01/03/2017 10:37:14 01/03/20 17 01/03/2017 CMP, serum or plasm a globulin, total 3.3 g/dL 1.5-4. 5 Not Available [facility] ([facility]) [address] [place], [address], 01/03/2017 10:37:14 01/03/20 17 01/03/2017 CMP, serum or plasm a A/G ratio 1.3 1.2-2. 2 Not Available [facility] ([facility]) [address] [place], [address], 01/03/2017 10:37:14 01/03/20 17 01/03/2017 CMP, serum or plasm a bilirubin, total 0.6 mg/dL 0.0-1. 2 Not Available [facility] ([facility]) [address] [place], [address], 01/03/2017 10:37:14 01/03/20 17 01/03/2017 CMP, serum or plasm a alkaline phosphatase, S 76 IU/L 39-117 Not Available [facility] ([facility]) [address] [place], [address], 01/03/2017 10:37:14 01/03/20 17 01/03/2017 CMP, serum or plasm a AST (SGOT) 21 IU/L 0-40 Not Available [facility] ([facility]) [address] [place], [address], 01/03/2017 10:37:14 01/03/20 17 01/03/2017 lipid panel , serum cholesterol, total 165 mg/dL 100-19 9 Not Available [facility] ([facility]) [address] [place], [address], 01/03/2017 10:37:15 01/03/20 17 01/03/2017 lipid panel , serum triglyceride s 98 mg/dL 0-149 Not Available [facility] ([facility]) [address] [place], [address], 01/03/2017 10:37:15 01/03/20 17 01/03/2017 lipid panel , serum HDL cholesterol 40 mg/dL >39 Not Available [facility] ([facility]) [address] [place], [address], 01/03/2017 10:37:15 01/03/20 17 01/03/2017 lipid panel , serum VLDL cholesterol abril 20 mg/dL 5-40 Not Available [facility] ([facility]) [address] [place], [address], 01/03/2017 10:37:15 01/03/20 17 01/03/2017 lipid panel , serum LDL cholesterol calc 105 mg/dL 0-99 above high normal Not Available [facility] ([facility]) [address] [place], [address], 01/03/2017 10:37:15 01/03/20 17 01/03/2017 lipid panel , serum comment: MANAGER GAME Not Available [facility] ([facility]) [address] [place], [address], 01/03/2017 10:37:15 01/03/20 17 01/03/2017 TSH, ultra -sens itive , serum TSH 0.741 uIU/m L 0.450- 4.500 Not Available [facility] ([facility]) [address] [place], [address], 01/03/2017 10:37:15 01/03/20 17 01/03/2017 golden lockhart note please note Commen t The date and/o r time of colle ction was not indic ated on the requi sitio n as requi red by state and [place] law. The date of recei pt of the speci men was used as the colle ction date if not suppl ied. Not Available [facility] ([facility]) [address] [place] [place], [address], 01/03/2017 10:37:16 02/01/20 17 01/31/2017 BMP, serum or plasm a glucose, serum 90 mg/dL 65-99 Speci men recei alfonzo in conta ct with cells . No visib le hemol ysis prese nt. Howev er GLUC may be decre ased and K incre ased. Clini abril corre latio n indic ated. Not Available [facility] ([place] [facility]) [address] [place] [place], [address], 01/31/2017 12:36:55 02/01/20 17 01/31/2017 BMP, serum or plasm a BUN 12 mg/dL 6-20 Not Available [facility] ([facility]) [address] [place], [address], 01/31/2017 12:36:55 02/01/20 17 01/31/2017 BMP, serum or plasm a creatinine, serum 1.18 mg/dL 0.76-1 .27 Not Available [facility] ([facility]) [address] [place] [place], [address], 01/31/2017 12:36:55 02/01/2001/31/2017 BMP, serum or plasm a eGFR if nonafricn AM 78 mL/mi n/1.7 3 >59 Not Available [facility] ([facility]) [address] [place] [place], [address], 01/31/2017 12:36:55 02/01/20 17 01/31/2017 BMP, serum or plasm a eGFR if africn AM 90 mL/mi n/1.7 3 >59 Not Available [facility] ([facility]) [address] [place], [address], 01/31/2017 12:36:55 02/01/20 17 01/31/2017 BMP, serum or plasm a BUN/creatini ne ratio 10 9-20 Not Available [facility] ([facility]) [address] [facility], [place], [address], 01/31/2017 12:36:55 02/01/20 17 01/31/2017 BMP, serum or plasm a sodium, serum 138 mmol/ L 134-14 4 Not Available [facility] ([facility]) [address] [place] [place], [address], 01/31/2017 12:36:55 02/01/20 17 01/31/2017 BMP, serum or plasm a potassium, serum 4.6 mmol/ L 3.5-5. 2 Speci men recei alfonzo in conta ct with cells . No visib le hemol ysis prese nt. Howev er GLUC may be decre ased and K incre ased. Clini abril corre latio n indic ated. Not Available [facility] ([facility]) [address] [facility], [place], [address], 01/31/2017 12:36:55 02/01/20 17 01/31/2017 BMP, serum or plasm a chloride, serum 94 mmol/ L 96-106 below low normal Not Available [facility] ([facility]) [address] [facility], [place], [address], 01/31/2017 12:36:55 02/01/20 17 01/31/2017 BMP, serum or plasm a carbon dioxide, total 24 mmol/ L 18-29 Not Available [facility] ([facility]) [address] [place] [place], [address], 01/31/2017 12:36:55 02/01/20 17 01/31/2017 BMP, serum or plasm a calcium, serum 9.5 mg/dL 8.7-10 .2 Not Available [facility] ([facility]) [address] [place], [address], 01/31/2017 12:36:55 02/01/20 17 01/31/2017 golden lockhart note please note Commen t The date and/o r time of colle ction was not indic ated on the requi sitio n as requi red by state and [place]ole [place] law. The date of recei pt of the speci men was used as the colle ction date if not suppl ied. Not Available [facility] ([facility]) [address] [place], [address], 01/31/2017 12:36:56 05/02/19 18 05/03/2017 drug scree n, urine amphetamine screen, urine Negati ve NG/mL cutoff =1000 Not Available [facility] ([facility]) [address] [place], [address], 05/03/2017 18:36:44 05/02/19 18 05/03/2017 drug scree n, urine barbiturates screen, urine Negati ve NG/mL cutoff =200 Not Available [facility] ([facility]) [address] [place], [address], 05/03/2017 18:36:44 05/02/19 18 05/03/2017 drug scree n, urine benzodiazepi vishnu screen, urine Negati ve NG/mL cutoff =200 Not Available [facility] ([facility]) [address] [place], [address], 05/03/2017 18:36:44 05/02/19 18 05/03/2017 drug scree n, urine cannabinoid screen, urine Negati ve NG/mL cutoff =20 Not Available [facility] ([facility]) [address] [place], [address], 05/03/2017 18:36:44 05/02/19 18 05/03/2017 drug scree n, urine cocaine (metab.) screen, urine Negati ve NG/mL cutoff =300 Not Available [facility] ([facility]) [address] [place], [address], 05/03/2017 18:36:44 05/02/19 18 05/03/2017 drug scree n, urine opiate screen, urine Negati ve NG/mL cutoff =300 Opiat e test inclu parish Codei ne, Morph ine, Coolspring morph one, Coolspring codon e. Not Available [facility] ([facility]) [address] [place], [address], 05/03/2017 18:36:44 05/02/19 18 05/03/2017 drug scree n, urine oxycodone/ox ymorphone, urine Negati ve NG/mL cutoff =100 Test inclu parish Oxyco done and Oxymo rphon e Not Available [facility] ([facility]) [address] [place], [address], 05/03/2017 18:36:44 05/02/19 18 05/03/2017 drug scree n, urine phencyclidin e screen, urine Negati ve NG/mL cutoff =25 Not Available [facility] ([facility]) [address] [place], [address], 05/03/2017 18:36:44 05/02/19 18 05/03/2017 drug scree n, urine methadone screen, urine Negati ve NG/mL cutoff =300 Not Available [facility] ([facility]) [address] [place], [address], 05/03/2017 18:36:44 05/02/19 18 05/03/2017 drug scree n, urine propoxyphene screen, urine Negati ve NG/mL cutoff =300 Not Available [facility] ([facility]) [address] [place], [address], 05/03/2017 18:36:44 05/02/19 18 05/03/2017 drug scree n, urine meperidine screen, urine Negati ve NG/mL cutoff =200 This test was devel opkb and its perfo rmanc e joana cteri stics deter mined by [facility]. It has not been clear ed or appro alfonzo by the Food and Drug Admin istra tion. Not Available [facility] ([facility]) [address] [place], [address], 05/03/2017 18:36:44 05/02/19 18 05/03/2017 drug scree n, urine fentanyl, urine Negati ve pg/mL cutoff =2000 Test inclu parish Fenta nyl and Norfe ntany l This test was devel oped and its perfo rmanc e joana cteri stics deter mined by [facility]. It has not been clear ed or appro alfonzo by the Food and Drug Admin istra tion. Not Available [facility] ([facility]) [address] [place], [address], 05/03/2017 18:36:44 05/02/19 18 05/03/2017 drug scree n, urine tramadol screen, urine Negati ve NG/mL cutoff =200 Not Available [facility] ([facility]) [address] [place], [address], 05/03/2017 18:36:44 05/02/19 18 05/03/2017 drug scree n, urine creatinine, urine 113.3 mg/dL 20.0-3 00.0 Not Available [facility] ([facility]) [address] [place], [address], 05/03/2017 18:36:44 05/02/19 18 05/03/2017 drug scree n, urine pH, urine 6.3 4.5-8. 9 Not Available [facility] ([facility]) [address] [place], [address], 05/03/2017 18:36:44 05/02/19 18 05/03/2017 drug scree [...] with an expec jett outco me. ([email or web address] [email or web address] or call toll- free [phone]) Not Available [facility] ([facility]) [address] [place], [address], 05/03/2017 18:36:44 05/02/19 18 05/03/2017 micro album in/cr eatin ine, mass ratio , urine creatinine, urine 115.2 mg/dL not estab. Not Available [facility] ([facility]) [address] [place], [address], 05/03/2017 18:36:45 05/02/19 18 05/03/2017 micro album in/cr eatin ine, mass ratio , urine albumin, urine <3.0 ug/mL not estab. Not Available [facility] ([facility]) [address] [facility], [place], [address], 05/03/2017 18:36:45 05/02/19 18 05/03/2017 micro album in/cr eatin ine, mass ratio , urine alb/creat ratio <2.6 mg/g_ creat 0.0-30 .0 Not Available [facility] ([facility]) [address] [place], [address], 05/03/2017 18:36:45 Result Notes None recorded. Problems Name Problem SNOMED Code Status Onset Date Resolution Date Notes Provider Name and Address Organization Details Recorded Time Asthma [id number] Active 2016 Aisha Moon MD [address] [place], [address], [facility] 7 13:52:55 Aaliyah woodson [id number] Active 2016 Aisha Moon MD [address] [place], [address], [facility] 7 13:53:16 Hyperten sive disorder 03801332 Completed 201601/02/2017 Aisha Moon MD [address] [place], [address], [facility] 7 13:53:25 Gastroes ophageal reflux disease [id number] Active 2016 Aisha Moon MD [address] [place], [address], [facility] 7 13:53:03 Body mass index 40+ - severely obese 327336768 Active 2016 Aisha Moon MD [address] [place], [address], [facility] 7 13:53:42 Diabetes mellitus screenin g Completed 201601/02/2017 Recorded Elsewhere : No Locati on: [facility] Source: EHR Chron ic: N Practic e ID: [id number] Bill able Time: 02:45:00 PM Aisha Moon MD [address] [place], [address], [facility] 7 13:52:51 Clinical finding Completed 201601/02/2017 Recorded Elsewhere : No Locati on: [facility] Source: EHR Chron ic: N Practic e ID: [id number] Bill able Time: 02:45:00 PM Aisha Moon MD [address] [place], [address], [facility] 7 13:52:58 Evaluati on procedur e Completed 201601/02/2017 Recorded Elsewhere : No Locati on: [facility] Source: EHR Chron ic: N Practic e ID: [id number] Bill able Time: 02:45:00 PM Aisha Moon MD [address] [place], [address], [facility] 7 13:53:10 Chronic back pain 111548567 Active 2016 Aisha Moon MD [address] [place], [address], [facility] 7 13:52:48 Cerebral palsy 696124999 Active 2016 Aisha Moon MD [address] [place], [address], [facility] 7 13:52:45 Spondylo listhesi s 526329601 Active 2016 Aisha Moon MD [address] [place], [address], [facility] 7 13:53:07 Obstruct donis sleep apnea syndrome 63534696 Active 2016 Aisha Moon MD [address] [place], [address], [facility] 7 13:53:36 Backache [id number] Completed 201601/02/2017 Recorded Elsewhere : No Locati on: [facility] Aurelio Source: EHR Chron ic: N Practic e ID: [id number] Bill able Time: 02:15:00 PM Aisha Moon MD [address] [place], [address], [facility] 7 13:52:49 Primary insomnia 4275663 Active 2016 Aisha Moon MD [address] [place], [address], [facility] 7 13:53:30 [facility] hyper[facility] carlin [id number] Active 2016 Aisha Moon MD [address] [place], [address], [facility] 7 13:53:46 Tarsal tunnel syndrome 54770366 Active 2017 Aisha Moon MD [address] [place], [address], [facility] 8 15:50:59 Problem Notes None recorded. Medical [...] Respiratory rate Body temperature Heart rate Systolic And Diastolic Systolic And Diastolic Provider Name and Address Organization Details Last Updated DateTime 8 170.18 cm 51.3 kg/m2 595756. 86 g 24 /min 98.1 [degF] 80 /min 144/110 mm[Hg] 120/88 mm[Hg] Alie Mar MA [address] [place], [address], [facility] 8 10:41:22 Date Recorded Body height Body mass index (BMI) Body weight Heart rate Respiratory rate Body temperature Systolic And Diastolic Provider Name and Address Organization Details Last Updated DateTime 7 170.18 cm 48.5 kg/m2 138722. 14 g 76 /min 12 /min 98.5 [degF] 128/82 mm[Hg] Adele talbert, [facility] [address] [place], [address] 2[facility] 7 14:02:26 Date Recorded Body height Body mass index (BMI) Body weight Heart rate Respiratory rate Body temperature Systolic And Diastolic Provider Name and Address Organization Details Last Updated DateTime 7 170.18 cm 49.6 kg/m2 456189. 7 g 72 /min 24 /min 97.9 [degF] 132/82 mm[Hg] Addie Oshea MA [address] [place], [address], [facility] 7 13:16:04 Social History Question Answer Notes LastModified by Organizat ion Details LastModified Time Tobacco Smoking Status Current Some Day Smoker Adele Chopra, [facility] [address] [place], [address], [facility] 01/02/2017 13:57:16 Which Illicit Or Recreational Drugs Have You Used? None [email or web address] Information not available 01/02/2017 How Many Days In The Past Year Have You Had A Heavy Drinking Consumption (4+ Female, 5+ Male)? 0 [email or web address] Information no t available 01/02/2017 Score 0 [email or web address] Information no t available 01/02/2017 What Was The Date Of Your Most Recent Tobacco Screening? 05/02/2017 Information not available 10/30/2018 Sex: Unknown Functional Status Question Answer Note LastModified by Organization D etails LastModified Time What is your level of alcohol consumption? None [email or web address] Information not available 01/02/2017 Mental Status None recorded. Family History Relationship Description Onset Age of this Age Resolved Age Notes LastModified by Organization Details LastModified Time Mother Diabetes mellitus [email or web address] Not available 2016 13:56:35 Mother History of renal failure [email or web address] Not available 2016 13:56:50 Maternal Grandfather Diabetes mellitus [email or web address] Not available 2016 13:56:59 Brother Diabetes mellitus [email or web address] Not available 2016 13:57:04 Medical History Condition Response Other Hypertension Y Depression Y Asthma Y Surgery Y Past Encounters Encounter ID Performer Location Encounter Start Date Encounter Closed Date Diagnosis/Indication Diagnosis SNOMED-CT Code Diagnosis ICD10 Code Diagnosis Note [id number] MD [facility]LIO [facility]ules [id number] [facility] [place] [address] 01/02/2017 13:37:51 01/02/2017 15:30:59 Essential hypertension 41285374 I10 history of - stable - continue amlodipine , losartan/H CTZ, metoprolol - follow up in 1 month for depression Paresthesi a of lower extremity 753261582 R20.2 unknown etiology - check nerve conduction test, xray - check labs to rule out any underlying causes Adjustment disorder with depressed mood 41058950 F43.21 grieving of girlfriend 2 months ago - start cymbalta daily - follow up with nadira for counseling - follow up in 1 month Spondylolisthesis 425382 003 M43.10 history of - with chronic back pain - follow up with pain management as scheduled - continue mobic, nucynta, gabapentin , flexeril per pain management Gastroesop hageal reflux disease 684177511 K21.9 history of - stable - continue omeprazole as needed [id number] MD AURELIO Jules [id number] [facility] [place] [address] 01/30/2017 13:07:47 01/30/2017 15:46:34 Nicotine dependence 70561316 F17.200 The best thing you can do for your health is quit smoking. Call 9-437TapClicksQUIT -NOW, a free quitline that can help people stop smoking. You can get free medication s to help with quitting by talking to them. We also welcome you to check out our Tobacco Treatment Group every Saturday from 3:30-4:30 at the [facility] office on [address] [place] [address]. This is open to [facility] patients as well as non-[facility] patients. We have snacks, gift cards for attending multiple sessions and great advice from other smokers! Obstructiv e sleep apnea syndrome 07263565 G47.33 history of - uncontroll ed - refer to sleep medicine for further evaluation and treatment Essential hypertension 12179803 I10 history of - stable - continue amlodipine , losartan/H CTZ, metoprolol - follow up in 3 months Paresthesi a of lower extremity 376559554 R20.2 nerve conduction test consistent with tarsal tunnel syndrome - follow up with ortho Adjustment disorder with depressed mood 10882125 F43.21 grieving of girlfriend - improving - continue cymbalta daily - follow up in 3 months Spondylolisthesis 819740 003 M43.10 history of - with chronic back pain - follow up with pain management as scheduled - continue nucynta, gabapentin , flexeril per pain management - mobic stopped due to SUSAN Acute kidney injury 1466 9001 N17.9 on routine blood work - stopped mobic for 1 month - recheck blood work today - discussed drinking more water [id number] MD AURELIO Jules [address] [place] [address] 05/02/2017 10:15:37 05/02/2017 16:41:01 Nicotine dependence 05574427 F17.200 The best thing you can do for your health is quit smoking. Call 6-705-QUIT -NOW, a free quitline that can help people stop smoking. You can get free medication s to help with quitting by talking to them. We also welcome you to check out our Tobacco Treatment Group every Saturday from 3:30-4:30 at [facility] This is open to [facility] patients as well as non[facility] patients. We have snacks, gift cards for attending multiple sessions and great advice from other smokers! Spondylolisthesis 534974 003 M43.10 history of - with chronic back pain - follow up with pain management as scheduled - we cannot prescribe chronic pain medication - we will start prescribin g gabapentin and zanaflex - OARRS reviewed and appropriat e - UDS today - referred to neurosurge ry per request Essential hypertension 26396025 I10 history of - stable - continue amlodipine , losartan/H CTZ, metoprolol - follow up in 3 months Adjustment disorder with depressed mood 12576059 F43.21 stable - continue cymbalta daily - follow up in 3 months Health Concerns Section Related Observation LastModified by Organization Detai ls LastModified Time None Recorded Concern Status LastModified by Organization Details LastModified Time None Recorded Advance Directives Directive None Recorded Payers Insurance Date Sequence Insurance Name Policy Number Policy Blackburn Covered Member ID Blackburn Member ID Guarantor Name 08/27/2017 1 [facility] [id number] Rubio Ruiz [id number] Rubio Ruiz 01/08/2018 1 [facility]UAL [facility]IG[facility] (MEDICARE REPLACEMENT/A DVANTAGE - HMO) [id number] Rubio Ruiz [id number] Rubio Ruiz
--- OUTSIDE RECORDS SUMMARY | 2024-11-02 09:37 | XMS_ITS | Clinical Summary ---
Author Organization [facility] Address [address] [place] [address] Care Team Providers Care Clinical Science Liaison Name Role Phone Julio Linn MD Primary Care Provider [phone] Allergies Active Allergy Reactions Criticality Noted Date [...] SUGAR FOUR TIMES DAILY NEEDED 4 Active hydroCHLOROthia zide (HYDRODiuril) 25 MG tablet 4 Active HYDROcodone-yeison taminophen ([place]) 7.5-325 MG tablet Take 1 tablet (7.5 [...] WEEK 5 Active febuxostat (Uloric) 40 MG tabletIndicatio ns:Idiopathic gout, right ankle and foot,Gout,High risk medication use Take 1 tablet by mouth daily. 90 tablet 5 Active Active Problems Problem Noted Date Diagnosed Date Gout 12/12/2023 Encounters Date Type Department Care Team Description 09/15/2024 Telephone [facility] [address] [place] [address] Piotr Wick, PharmD from Last 3 Months Immunizations Immunization Administration Dates Next Due Influenza, injectable, quadrivalent 01/14/2023,1 04/30/2021,02/25/2019 Influenza, injectable, quadr ivalent, preservative free 01/10/2021,01/18/2020 Influenza, seasonal, injectable 01/08/2024 Pneumococcal Polysaccharide PPV23 05/09/2021 TD (adult), 2 Lf tetanus tox oid, preservative free, adsorbed 09/08/2019 Family History Medical History Relation Name Comments Diabetes Brother Robert Ruiz Obesity Brother Robert Ruiz Diabetes Maternal Grandfather Julio Corralespherd Obesity Maternal Grandfather Julio Duqueerd Stroke Maternal Grandfather Julio Corralespherd Cancer Maternal Grandmother amy duqueerd Diabetes Mother gilbert Corralespherd Kidney disease Mother gilbert Corralespherd Obesity Mother gilbert Duqueerd Relation Name Status Comments Brother Robert Ruiz Maternal Grandfather Julio Corralespherd Maternal Grandmother amy duqueerd Mother gilbert Duqueerd Social History Tobacco Use Types Packs/Day Years Used Date Smoking Tobacco: Every Day Cigarettes 0.5 4.1 Started: 09/20/2020 Passive Smoke Exposure: Current Smokeless [...] Care Team (Late st Contact Info) Description 12/18/2024 3:20 PM EDT Office Visit [facility] [address] [place] [address] Nany Beard, CATHODE MAKER [address] [place] [address] Health Maintenance Due Date Last Done Comments [facility]-HIV Screening 1978 [facility]-Medicare Annual Wellness (AWV) 1978 [facility]-Infant/Child/Adol SDOH Screenings 1978 [id number] Vaccine (#1) 1983 [facility]- SDOH Screenings 1996 [...] 2023 Sigmoidoscopy 2023 [facility]-Colorectal Cancer Screening 2023 [facility]-Influenza Vaccine (#1) 12/07/202401/07, 01/14/2023, 02/28/2022, Additional history exists [facility]-Depression Screening 06/12/2025 06/12/2024, 08/2023 [facility]-Zoster Vaccines (1 of 2) 2028 [facility]-Hepatitis C Screening Completed 12/12/2023 [facility]-Obesity Intervention Completed 025, 03/12/2024, 12/12/2023 HPV [...] Procedure Name Priority Date/Time Associated Diagnosis Comments ACUTE HEPATITIS PANEL Routine 12/12/2023 12:55 PM EDT Idiopathic gout, right ankle and foot Gout High risk medication use from Last 3 Months or Most Recently Relevant to Health Maintenance Results * Acute Hepatitis Panel (12/12/2023 12:55 PM EDT) Hepatitis B Surf Antigen Negative Negative 12/12/2023 3:13 PM EDT [facility] Hepatitis C Antibody Negative Negative 12/12/2023 3:13 PM EDT [facility] Hepatitis A Antibody IgM Negative Negative 12/12/2023 3:13 PM EDT [facility] Hepatitis B Core Antibody IgM Negative Negative 12/12/2023 3:13 PM EDT [facility] Blood Venous blood specimen / Unknown Venipuncture / Unknown 12/12/2023 12:55 PM EDT 12/12/2023 12:55 PM EDT us Nany Beard CATHODE MAKER LAB BLOOD ORDERABLES Final Result [facility] [address] [place] [address] from Last 3 Months or Most Recently Relevant to Health Maintenance Insurance [facility] MEDICAID [facility] MEDICARE Care Teams Clinical Science Liaison Relationship Specialty Start Date End Date Julio Linn MD [address] [place] [address] PCP - General 10/16/24
--- OUTSIDE RECORDS SUMMARY | 2024-11-02 09:37 | XMS_ITS | Encounter Summary ---
Author Organization Healthcare Address [address] [place] [address] Care Team Providers Care Tip Puncher Name Role Phone Dixie Drew MD Primary Care Provider [phone] Encounter Details Date Type Department Care Team (Late st Contact Info) Description 09/15/2024 Telephone [facility] [address] [place] [address] Piotr Wick, PharmD [place] [phone] Social History Tobacco Use Types Packs/Day Years [...] Description 12/18/2024 3:20 PM EDT Office Visit [facility] [address] [place] [address] Nany Beard, SENIOR ANALYTICAL CHEMIST [address] [place] [address] documented as of this encounter Visit Diagnoses Diagnosis Gout- Primary Gout, unspecified Idiopathic gout, right ankle and foot High risk medication use documented in this encounter Additional Health Concerns Assessment Noted Time PHQ-9 Depression Total Score: 0 03/12/20 3:17 PM EST A fall risk assessment has been complete d for the patient 06/12/2024 1:33 PM EST A Body Mass Index follow-up plan has been documented for the patient 06/12/2024 2:12 PM EST documented as of this encounter Care Teams Tip Puncher Relationship Specialty Start Date End Date Dixie Drew MD [address] [place] [address] PCP - General 02/21/21 10/15/24 documented as of this encounter
--- OUTSIDE RECORDS SUMMARY | 2024-11-02 09:37 | XMS_ITS | Encounter Summary ---
Author Organization Healthcare Address [address] [place] [address] Care Team Providers Care Precision Lathe Operator Name Role Phone Dixie Drew MD Primary Care Provider [phone] Julio Linn MD Primary Care Provider [phone] Encounter Details Date Type Department Care Team (Late st Contact Info) Description 02/10/2021 Community [facility] [address] [place] [address] Dixie Drew MD [address] [place] [address] Positive WILLIAMS (antinuclear antibody) (Primary Dx) Social [...] Description 12/18/2024 3:20 PM EDT Office Visit [facility] [address] [place] [address] Nany Beard APRN [address] [place] [address] documented as of this encounter Visit Diagnoses Diagnosis Positive WILLIAMS (antinuclear antibody)- Primary Other and unspecified nonspecific immunological findings documented in this encounter Care Teams Precision Lathe Operator Relationship Specialty Start Date End Date Dixie Drew MD [address] [place] [address] PCP - General 02/21/21 10/15/24 Julio Linn MD [address] [place] [address] PCP - General 10/16/24 documented as of this encounter
--- NOTE | 2024-11-02 09:57 | EXP.PAIN.SOA ---
[facility] Disclaimer: The information contained in this section may have been updated after the patient was seen, as this information can be updated by other users. Medical History Lumbar back pain Lumbar and sacral arthritis Surgical History No significant past surgical history Family History Other No significant family history Social History Smoking Status: Current every day smoker (/ ppd) tobacco type: cigarettes packs per day: 1 alcohol intake: never substance use type: denies use current occupational status: other Travel in the last 8 weeks?: None number of children: 1 PM Subjective & Objective Subjective Subjective:: Patient is a pleasant 44-year-old male who presents today for follow-up. He does rate his pain today a 4 out of 10. Patient denies any new changes from our last appointment. He states he still has the chronic pain throughout his low back. Patient is currently in the process of getting scheduled for the intrathecal pump trial. Patient has had an appropriate psychological evaluation. Patient does state however he is still not heard from the neurosurgeon. Patient is prescribed gabapentin 600 mg 3 times a day. This is from an outside provider who he did request a note from their office to be sent to ours to have us take over this medication. His Rogelio has been reviewed and is appropriate. Review of Systems: General: No recent weight changes, no fever, no sleep disturbances Respiratory: No cough, no shortness of air, no recurring pulmonary infections Cardiovascular/peripheral vascular: No chest pain, no palpitations, no edema, no shortness of breath Gastrointestinal: No new onset incontinence, normal bowel movements reported Genitourinary: No new onset incontinence Musculoskeletal: Chronic back pain Psychiatric: [Normal mood/affect] Neurological: [Denies weakness in extremities], [denies balance issues] Pain at rest (0-10 scale): 4 Objective Objective:: Physical Exam: General: Alert and oriented x3, no acute distress, pleasant and cooperative Lungs: Respirations even and unlabored, symmetrical chest expansion Eyes: PERRL Musculoskeletal: Flexion and extension of lumbar [spine] somewhat guarded secondary to pain, [antalgic gait noted] Neurological: Speech clear, no gross sensory deficit Has patient had previous pain injection?: No Conservative treatment options previously tried: Home exercise plan Length of treatment: Longer than 12 weeks Meds Home Medications and Allergies Home Medications ?Medication ?Instructions ?Recorded ?Confirmed ?Type gabapentin 600 mg tablet 600 mg PO TID 03/09/24 09/16/24 History hydrocodone 5 mg-acetaminophen 325 1 tab PO NEEDED PRN Pain 03/09/24 09/16/24 History mg tablet tizanidine 4 mg tablet 4 mg PO TID PRN Pain 03/09/24 09/16/24 History New Prescriptions to Start Prescriptions: Allergies Allergy/AdvReac Type Severity Reaction Status Date / Time No Known Allergies Allergy Verified 03/09/24 15:33 Assessment and Plan *Assessment and plan (1) Lumbar stenosis with neurogenic claudication: Status: Acute Category: Medical Code(s): M48.062 - Spinal stenosis, lumbar region with neurogenic claudication (2) Lumbar spinal stenosis: Status: Acute Category: Medical Code(s): M48.061 - Spinal stenosis, lumbar region without neurogenic claudication (3) Chronic pain syndrome: Status: Acute Category: Medical Code(s): G89.4 - Chronic pain syndrome (4) Lumbar facet arthropathy: Status: Acute Category: Medical Code(s): M47.816 - Spondylosis without myelopathy or radiculopathy, lumbar region (5) Degenerative disc disease, lumbar: Status: Acute Category: Medical Code(s): M51.369 - Other intervertebral disc degeneration, lumbar region without mention of lumbar back pain or lower extremity pain Plan I did review over some additional questions regarding the pump trial and possible future implant. We will still plan on submitting for this procedure. Patient has had an appropriate psychological evaluation and was deemed an appropriate patient. Patient was counseled that we will reach out to the neurosurgeon and see if we can get an update regarding this referral. We will still be planning on proceeding forward with the trial however our November diet is full so it will most likely be in December. Patient agrees with this plan of care. I did substance abuse counselor the patient that the know we got from his other provider was an office note and did not make mention regarding is taking over his gabapentin. I did substance abuse counselor him that we reached back out to that office however I am unaware whether or not if they have sent any additional documentation. We will plan on taking over the gabapentin and keep his ongoing dosage of gabapentin 600 mg 3 times a day. I will send a 3-month supply today. Patient will return to clinic for his intrathecal pump trial in December and a medication refill in January. Patient has been instructed to contact the clinic with any concerns before the next appointment. Dr. Melton has reviewed this note and agrees with this plan of care. This note was dictated using voice recognition software and make contain errors or omissions. All injections are used with Lidocaine, Bupivacaine and dexamethasone. Occasionally urine drug screen is needed to verify patient's compliance with our office pain contract. This is ordered based off specific treatments related to chronic pain with the potential to abuse certain medications.
[2024-11-02 10:14] VITALS: BP 123/80; PULSE 89; RESP 14; O2SAT 97; BMI 60.6
== END 2024-11-02 23:59 | disposition home or self-care (01) ==
PROVIDERS: PCP Family Medicine; Visit Provider Nurse Practitioner Family
DX: M48.061 Spinal stenosis, lumbar region without neurogenic claudication (principal); G89.4 Chronic pain syndrome; M47.816 Spondylosis without myelopathy or radiculopathy, lumbar region; M51.360 Other intervertebral disc degeneration, lumbar region with discogenic back pain only; Z79.899 Other long term (current) drug therapy
CPT/HCPCS: 99212; G0463